=== PATIENT | female | born 1955 | race Caucasian/White ===

== ENCOUNTER 2020-07-26 13:50 | Inpatient (IN) | payer MEDICARE, OTHER ==
[2020-07-26] MEDS ORDERED: MORPHINE SULFATE 4 MG/ML SYRINGE IVP STA (14:11)
[2020-07-26] MEDS ORDERED: ONDANSETRON 4 MG/2 ML VIAL IVP STA (14:12)
[2020-07-26] MEDS ORDERED: NALOXONE 0.4 MG/ML 1 ML VIAL IV PRN (14:16)
--- NOTE | 2020-07-26 14:16 | ED ---
Abdominal Pain HPI - General Chief Complaint: Abdominal Pain Stated Complaint: abd pain, lightheaded Time Seen by Provider: 07/26/20 13:50 Source: patient, RN notes reviewed Mode of arrival: EMS Limitations: physical limitation - History of Present Illness Initial Comments: This is a 64-year-old female with a history of a colostomy that she had in 2018 was scheduled for tomorrow she was to have a colonoscopy today did used to prep starting yesterday. He started developing some abdominal pain with nausea vomiting lightheadedness. She was seen at [facility] and evaluated. Patient case was discussed with Dr. Sanchez patient was transferred here for further evaluation and care. Patient states she's feeling better except for some pain she can take morphine as he is ALLERGIC to a lot of. She denies any fevers chills or sweats at this time. MD Complaint: abdominal pain - Related Data Home Medications Medication Instructions Recorded Confirmed Atorvastatin [Lipitor] 40 mg PO HS 07/21/20 07/21/20 FLUoxetine HCL [PROzac] 20 mg PO BID 07/21/20 07/21/20 Magnesium 500 mg PO HS 07/21/20 07/21/20 Omeprazole 20 mg PO DAILY 07/21/20 07/21/20 SUMAtriptan SUCCINATE [Imitrex] 25 mg PO DAILY PRN 07/21/20 07/21/20 Spironolactone [Aldactone] 25 mg PO QAM 07/21/20 07/21/20 Tolterodine [Detrol] 2 mg PO BID 07/21/20 07/21/20 atenoloL [Atenolol] 25 mg PO QAM 07/21/20 07/21/20 hydrOXYzine HCL [Atarax] 10 mg PO BID PRN 07/21/20 07/21/20 metFORMIN HCL [Glucophage] 500 mg PO DAILY 07/21/20 07/21/20 rOPINIRole HCL [Requip] 0.5 mg PO HS 07/21/20 07/21/20 Allergies Allergy/AdvReac Type Severity Reaction Status Date / Time amoxicillin Allergy Rash/Hives Verified 07/26/20 14:08 hydromorphone [From Dilaudid] Allergy Rash/Hives Verified 07/26/20 14:08 Iodinated Contrast Media Allergy Rash/Hives Verified 07/26/20 14:08 Review of Systems ROS Statement: Those systems with pertinent positive or pertinent negative responses have been documented in the HPI. ROS Other: All systems not noted in ROS Statement are negative. Past Medical History Past Medical History: Coronary Artery Disease (CAD), GERD/Reflux, H yperlipidemia, Hypertension, Osteoarthritis (OA), Rheumatoid Arthritis (RA) Additional Past Medical History / Comment(s): colostomy, hx of fistula with abscess, sx at [facility], hx of colon polyps, hx of kidney stones, incisional hernia, restless leg, states on metformin for weight loss, not diabetes, hx of urinary incontinence, hx migraines History of Any Multi-Drug Resistant Organisms: None Reported Past Surgical History: Heart Catheterization With Stent Additional Past Surgical History / Comment(s): colostomy 08/2018 @ [facility], 2 cardiac stents, lithotripsy Past Anesthesia/Blood Transfusion Reactions: Previous Problems w/ Anesthesia Additional Past Anesthesia/Blood Transfusion Reaction / Comment(s): trouble waking up in past Date of Last Stent Placement:: 2008? Past Psychological History: Anxiety, Depression Smoking Status: Never smoker Past Alcohol Use History: None Reported Past Drug Use History: None Reported - Past Family History Mother Family Medical History: No Reported History General Exam - General Exam Comments Initial Comments: This is a well-developed well-nourished awake alert oriented 3 female Limitations: physical limitation General appearance: alert, in no apparent distress Head exam: Present: atraumatic, normocephalic, normal inspection Eye exam: Present: normal appearance, PERRL, EOMI. Absent: scleral icterus, conjunctival injection, periorbital swelling ENT exam: Present: normal exam, mucous membranes moist Neck exam: Present: normal inspection. Absent: tenderness, meningismus, lymphadenopathy Respiratory exam: Present: normal lung sounds bilaterally. Absent: respiratory distress, wheezes, rales, rhonchi, stridor Cardiovascular Exam: Present: regular rate, normal rhythm, normal heart sounds. Absent: systolic murmur, diastolic murmur, rubs, gallop, clicks GI/Abdominal exam: Present: soft, normal bowel sounds, other (Left lower quadrant colostomy noted with evidence of a parastomal hernia no guarding rebound to sign.). Absent: distended, tenderness, guarding, rebound, rigid Extremities exam: Present: normal inspection, full ROM, normal capillary refill. Absent: tenderness, pedal edema, joint swelling, calf tenderness Back exam: Present: normal inspection Neurological exam: Present: alert, oriented X3, CN II-XII intact Psychiatric exam: Present: normal affect, normal mood Skin exam: Present: warm, dry, intact, normal color. Absent: rash Course Vital Signs 07/26/20 14:03 Temperature 98.3 F Pulse Rate 72 Respiratory 18 Rate Blood Pressure 127/73 O2 Sat by Pulse 97 Oximetry Medical Decision Making - Medical Decision Making I did discuss the transfer with Dr. Carrera at [facility] as well as Dr. Jesika schmid and in the patient. Patient be admitted colonoscopy done later this afternoon. I did review the materials from the other hospital. Disposition Clinical Impression: Abdominal pain, Parastomal hernia Disposition: ADMITTED IP TO THIS HOSP Condition: Stable Referrals: Rudolph Quinteros MD [Primary Care Provider] - 1-2 days
[2020-07-26] MEDS: SODIUM CHLORIDE 0.9% 1,000 ML IV SCH ×2 (14:23→22:17)
[2020-07-26] MEDS ORDERED: PROPOFOL 10 MG/ML 20 ML VIAL IV ONE (15:20)
[2020-07-26] MEDS ORDERED: IV FLUID CONTINUATION 1,000 ML IV ONE (15:24)
--- NOTE | 2020-07-26 15:41 | P.OP ---
Date of Procedure: 07/26/20 Preoperative Diagnosis: History of diverticulitis and Peristomal hernia Postoperative Diagnosis: Same Procedure(s) Performed: Colonoscopy Anesthesia: MAC Surgeon: Butch Sanchez Pathology: none sent Condition: stable Disposition: PACU Description of Procedure: The patient's placed on the endoscopy table lateral position. She received IV sedation. Digital rectal exam was performed which revealed no abnormalities. There was a stool ball within the rectum. This removed with digital manipulation. The colostomy was then placed patient rectum. The scope was placed proximally 15 cm. The staple line was visualized. Scope withdrawn. Next the colonoscopy was placed in patient's colostomy. Patient very large parastomal hernia. There is incarcerated bowel stoma. The colonoscope could not be advanced through the colon due to incarceration of bowel. This point scope was withdrawn. Patient top she will was sent to recovery room stable condition.
--- NOTE | 2020-07-26 15:43 | P.GSHP ---
History of Present Illness H&P Date: 07/26/20 Chief Complaint: History of perforated diverticulitis, parastomal hernia This 64-year-old female who was admitted through the emergency room. Patient was rigid scheduled for outpatient endoscopy today. She developed a hypotensive episode at home. She initially taken Norm the colon which is fluid hydrated and then transferred here. Patient scheduled for reversal of colostomy in the a.m. She's. History of perforated diverticulitis. She developed a very large parastomal hernia. There is bowel incarceration hernia. Past Medical History Past Medical History: Coronary Artery Disease (CAD), GERD/Reflux, Hyperlipidemia, Hypertension, Osteoarthritis (OA), Rheumatoid Arthritis (RA) Additional Past Medical History / Comment(s): colostomy, hx of fistula with abscess, sx at [facility], hx of colon polyps, hx of kidney stones, incisional hernia, restless leg, states on metformin for weight loss, not diabetes, hx of urinary incontinence, hx migraines History of Any Multi-Drug Resistant Organisms: None Reported Past Surgical History: Heart Catheterization With Stent Additional Past Surgical History / Comment(s): colostomy 08/2018 @ [facility], 2 cardiac stents, lithotripsy Past Anesthesia/Blood Transfusion Reactions: Previous Problems w/ Anesthesia Additional Past Anesthesia/Blood Transfusion Reaction / Comment(s): trouble waking up in past Date of Last Stent Placement:: 2008? Past Psychological History: Anxiety, Depression Smoking Status: Never smoker Past Alcohol Use History: None Reported Past Drug Use History: None Reported - Past Family History Mother Family Medical History: No Reported History Medications and Allergies Home Medications Medication Instructions Recorded Confirmed Type Atorvastatin [Lipitor] 40 mg PO HS 07/21/20 07/26/20 History FLUoxetine HCL [PROzac] 20 mg PO BID 07/21/20 07/26/20 History Magnesium 500 mg PO HS 07/21/20 07/26/20 History Omeprazole 20 mg PO DAILY 07/21/20 07/26/20 History SUMAtriptan SUCCINATE [Imitrex] 25 mg PO DAILY PRN 07/21/20 07/26/20 History Spironolactone [Aldactone] 25 mg PO DAILY 07/21/20 07/26/20 History Tolterodine [Detrol] 2 mg PO BID 07/21/20 07/26/20 History atenoloL [Atenolol] 25 mg PO DAILY 07/21/20 07/26/20 History hydrOXYzine HCL [Atarax] 10 mg PO BID PRN 07/21/20 07/26/20 History metFORMIN HCL [Glucophage] 500 mg PO DAILY 07/21/20 07/26/20 History rOPINIRole HCL [Requip] 0.5 mg PO HS 07/21/20 07/26/20 History Acetaminophen Tab [Tylenol Tab] 1,000 mg PO Q6HR PRN 07/26/20 07/26/20 History Aspirin EC [Ecotrin Low Dose] 81 mg PO DAILY 07/26/20 07/26/20 History Melatonin 5 mg PO HS PRN 07/26/20 07/26/20 History Primidone [Mysoline] 50 mg PO BID 07/26/20 07/26/20 History Allergies Allergy/AdvReac Type Severity Reaction Status Date / Time amoxicillin Allergy Rash/Hives Verified 07/26/20 14:47 hydromorphone [From Dilaudid] Allergy Rash/Hives Verified 07/26/20 14:47 Iodinated Contrast Media Allergy Rash/Hives Verified 07/26/20 14:47 Surgical - Exam Vital Signs Temp Pulse Resp BP Pulse Ox 98.3 F 72 18 127/73 97 07/26/20 14:03 07/26/20 14:03 07/26/20 14:03 07/26/20 14:03 07/26/20 14:03 - General well developed, no distress - Eyes PERRL - ENT normal pinna - Neck no masses - Respiratory normal expansion - Cardiovascular Rhythm: regular - Abdomen Large parastomal hernia Abdomen: soft, non tender Assessment and Plan Assessment: History of perforated diverticulitis, large parastomal hernia, patient will undergo colonoscopy and then reversal of colostomy in a.m.
[2020-07-26] MEDS ORDERED: MELATONIN 5 MG TABLET PO PRN (19:47)
[2020-07-26] MEDS ORDERED: hydrOXYzine HCL 10 MG TAB PO PRN (19:47)
[2020-07-26 21:31] LABS: Glucose,Whole Blood 134 mg/dL (75-99)
[2020-07-26] MEDS: ATORVASTATIN 40 MG TAB PO SCH (21:36)
[2020-07-26] MEDS: INSULIN ASPART (NovoLOG) 100 UNIT/ML VIAL SQ SCH (21:36)
[2020-07-26] MEDS: FLUoxetine HCL 20 MG CAP PO SCH (21:36)
[2020-07-26] MEDS: MAGNESIUM OXIDE 400 MG TAB PO SCH (21:37)
[2020-07-26] MEDS: OXYBUTYNIN XL 5 MG TAB.ER.24 PO SCH (21:37)
[2020-07-26] MEDS: PRIMIDONE 50 MG TAB PO SCH (21:37)
[2020-07-26] MEDS: SUMAtriptan succinate 25 MG TAB PO PRN (21:43)
[2020-07-27] MEDS ORDERED: metroNIDAZOLE-NS PMX 500 MG in SALINE 1 100ML.BAG IVPB PRN (05:00)
[2020-07-27] MEDS ORDERED: HEPARIN SODIUM,PORCINE/PF 5,000 UNIT/0.5 ML SYRINGE SQ PRN (05:00)
[2020-07-27] MEDS ORDERED: ACETAMINOPHEN TAB 500 MG TAB PO PRN (05:00)
[2020-07-27] MEDS: SODIUM CHLORIDE 0.9% 1,000 ML IV SCH ×3 (05:47→22:45)
[2020-07-27] MEDS ORDERED: fentaNYL (PF) 50 MCG/ML 2 ML AMP IV PRN (07:53)
[2020-07-27 07:55] LABS: Glucose,Whole Blood 93 mg/dL (75-99)
[2020-07-27] MEDS: INSULIN ASPART (NovoLOG) 100 UNIT/ML VIAL SQ SCH ×4 (07:58→21:12)
[2020-07-27 08:00] LABS: Anisocytosis Slight; Basophils % (A) 0 %; Eosinophils # (A) 0.1 k/uL (0-0.7); Eosinophils % (A) 2 %; HCT 31.8 % (34.0-46.0); HGB 9.4 gm/dL (11.4-16.0); Hypochromasia Marked; Lymphocytes # (A) 1.3 k/uL (1.0-4.8); Lymphocytes % (A) 16 %; MCH 20.8 pg (25.0-35.0); MCHC 29.5 g/dL (31.0-37.0); MCV 70.4 fL (80.0-100.0); Mean Platelet Volume 6.9; Microcytosis Marked; Monocytes # (A) 0.5 k/uL (0-1.0); Monocytes % (A) 6 %; Neutrophils # (A) 6.2 k/uL (1.3-7.7); Neutrophils % (A) 75 %; Platelet Count 368 k/uL (150-450); RBC 4.53 m/uL (3.80-5.40); RDW 16.5 % (11.5-15.5); WBC 8.3 k/uL (3.8-10.6)
[2020-07-27 08:02] LABS: ALT 17 U/L (4-34); AST 28 U/L (14-36); African American GFR (CKD) 81 (>60 ml/min/1.73 sqM); Albumin 3.5 g/dL (3.5-5.0); Albumin/Globulin Ratio 1.8; Alkaline Phosphatase 81 U/L (38-126); Anion Gap 6 mmol/L; Blood Urea Nitrogen 13 mg/dL (7-17); Calcium 8.5 mg/dL (8.4-10.2); Carbon Dioxide 24 mmol/L (22-30); Chloride 106 mmol/L (98-107); Glucose 89 mg/dL (74-99); Non-African American GFR(CKD) 70 (>60 ml/min/1.73 sqM); Potassium 4.1 mmol/L (3.5-5.1); Sodium 136 mmol/L (137-145); Total Bilirubin 0.3 mg/dL (0.2-1.3); Total Protein 5.5 g/dL (6.3-8.2)
[2020-07-27 08:03] LABS: Partial Thromboplastin Time 22.2 sec (22.0-30.0); Prothrombin Time 10.5 sec (9.0-12.0)
[2020-07-27] MEDS: FLUoxetine HCL 20 MG CAP PO SCH ×2 (08:18→20:43)
[2020-07-27] MEDS: PANTOPRAZOLE 40 MG TABLET PO SCH (08:18)
[2020-07-27] MEDS: atenoloL 25 MG TAB PO SCH (08:18)
[2020-07-27] MEDS ORDERED: IV FLUID CONTINUATION 1,000 ML IV ONE (08:54)
[2020-07-27] MEDS: LACTATED RINGERS 1,000 ML IV SCH (09:14)
[2020-07-27 09:35] LABS: Glucose,Whole Blood 89 mg/dL (75-99)
[2020-07-27] MEDS ORDERED: ONDANSETRON 4 MG/2 ML VIAL IVP ONE (09:36)
[2020-07-27] MEDS ORDERED: DEXAMETHASONE SOD PHOSPHATE 4 MG/ML 1 ML VIAL IVP ONE (09:36)
[2020-07-27] MEDS ORDERED: MIDAZOLAM 2 MG/2 ML VIAL IV ONE (12:20)
[2020-07-27] MEDS ORDERED: ROCURONIUM 10 MG/ML (5 ML VIAL) IV ONE (13:00)
[2020-07-27] MEDS ORDERED: SUCCINYLCHOLINE CHLORIDE 100 MG/5 ML SYR IV ONE (13:00)
[2020-07-27] MEDS ORDERED: LIDOCAINE 1% INJ 10MG/ML (20 ML MDV) ONE (13:00)
[2020-07-27] MEDS ORDERED: PROPOFOL 10 MG/ML 20 ML VIAL IV ONE (13:00)
[2020-07-27] MEDS ORDERED: NEOSTIGMINE 1 MG/ML 10 ML VIAL ONE (13:00)
[2020-07-27] MEDS ORDERED: fentaNYL (PF) 50 MCG/ML 2 ML AMP ONE (13:00)
[2020-07-27] MEDS ORDERED: GLYCOPYRROLATE 0.2 MG/ML 2 ML VIAL ONE (13:00)
[2020-07-27] MEDS ORDERED: ROPIVACAINE 250 MG, fentaNYL (PF) 625 MCG in SODIUM CHLORIDE 0.9% 188 ML EPIDURAL PRN (13:18)
[2020-07-27] MEDS ORDERED: NALOXONE 0.4 MG/ML 1 ML VIAL IV PRN (13:18)
--- NOTE | 2020-07-27 13:21 | P.ANPRN ---
Procedure Note - Anesthesia - Epidural/Spinal Epidural Continuous Time Out Performed: Yes Date of Procedure: 07/27/20 Procedure Start Time: 12:18 Procedure Stop Time: 12:25 Location of Patient: PreOp Indication: Acute Post-Operative Pain, Requested by Surgeon Sedation Type: Sedate with meaningful contact maintained Preparation: Sterile Dressing Position: Sitting Catheter: Indwelling Needle Guage: 18 Injectate: Test Dose Lidocaine1.5% w/1:200,000 epi (test dose 3cc given,no change) Blood Aspirated: No Pain Paresthesia on Injection Noted: No Events: Uneventful and Well Tolerated
[2020-07-27] MEDS ORDERED: LACTATED RINGERS 1,000 ML IV ONE (14:15)
[2020-07-27] MEDS ORDERED: HYDROmorphone 1 MG/ML 1 ML SYRINGE IVP PRN (14:54)
[2020-07-27] MEDS ORDERED: BENZOCAINE/MENTHOL LOZENG 1 EACH LOZENGE MUCOUS MEM PRN (14:54)
--- NOTE | 2020-07-27 14:54 | P.OP ---
Date of Procedure: 07/27/20 Preoperative Diagnosis: History of perforated diverticulitis Incisional hernia Postoperative Diagnosis: Same Procedure(s) Performed: Exploratory laparotomy Reversal colostomy Repair of incisional hernia Partial omentectomy Anesthesia: ALISA Surgeon: Butch Sanchez Estimated Blood Loss (ml): 50 Pathology: other (Left colon) Condition: stable Disposition: PACU Description of Procedure: The patient's placed in the operative table in supine position. She was then received general anesthesia. She then was positioned in dorsal lithotomy position. Her abdomen was prepped and draped usual sterile fashion. An Ioban was used to barrier at the colostomy. The skin was incised midline. Patient large incisional hernia. The hernia sac was opened. The hernia sac was then transected. The patient's colostomy traveled through the hernia sac. The colon was then transected at the fascial level. The patient had a very redundant colon. The colon was then dissected by dividing the mesentery the bowel to the level of the mid transverse colon. The omentum was dissected free using the Enseal device. The omentum was sent to pathology. Next a opening was made and: The 25 mm EEA staple anvil was placed in the colon. The colon was then transected with a GI stapler and sent to pathology. The was then driven through the staple line. At this point the senior office support assistant sosa placed the EEA stapler patient's anus and the stapler position the rectum. The spike was then driven through the anterior rectal wall. The endoscopic to the stapler. The stapler was then closed and fired. 2 intact tissue rings were withdrawn. Using a hydro-managing consultant clinical professor the bowel was occluded and then air insufflation test was done using a rigid sigmoidoscope. There is known to leakage. The abdomen was irrigated there is no bleeding seen. The fascia was closed in looped PDS #1 suture. The redundant skin included the colostomy. This was excised and sent to pathology. A JASMINE drains placed on top the fascia. Brought out through the right upper quadrant. The skin was then closed johnson. Patient top procedure well and sent to recovery room stable.
[2020-07-27 15:34] LABS: Glucose,Whole Blood 158 mg/dL (75-99)
[2020-07-27] MEDS ORDERED: fentaNYL (PF) 50 MCG/ML 2 ML AMP IVP ONE (15:54)
[2020-07-27 16:40] LABS: Anisocytosis Slight; Basophils % (A) 0 %; Eosinophils # (A) 0.1 k/uL (0-0.7); Eosinophils % (A) 0 %; HCT 33.7 % (34.0-46.0); HGB 9.6 gm/dL (11.4-16.0); Hypochromasia Marked; Lymphocytes # (A) 0.6 k/uL (1.0-4.8); Lymphocytes % (A) 4 %; MCH 20.2 pg (25.0-35.0); MCHC 28.5 g/dL (31.0-37.0); MCV 70.7 fL (80.0-100.0); Mean Platelet Volume 7.9; Microcytosis Moderate; Monocytes # (A) 0.4 k/uL (0-1.0); Monocytes % (A) 2 %; Neutrophils # (A) 16.1 k/uL (1.3-7.7); Neutrophils % (A) 93 %; Platelet Count 392 k/uL (150-450); RBC 4.76 m/uL (3.80-5.40); RDW 16.6 % (11.5-15.5); WBC 17.4 k/uL (3.8-10.6)
[2020-07-27 16:44] LABS: African American GFR (CKD) >90 (>60 ml/min/1.73 sqM); Anion Gap 7 mmol/L; Blood Urea Nitrogen 12 mg/dL (7-17); Calcium 8.6 mg/dL (8.4-10.2); Carbon Dioxide 23 mmol/L (22-30); Chloride 105 mmol/L (98-107); Glucose 149 mg/dL (74-99); Non-African American GFR(CKD) 80 (>60 ml/min/1.73 sqM); Potassium 4.9 mmol/L (3.5-5.1); Sodium 135 mmol/L (137-145)
[2020-07-27] MEDS: PRIMIDONE 50 MG TAB PO SCH ×2 (17:19→20:43)
[2020-07-27] MEDS: ASPIRIN 81 MG PO SCH (17:19)
[2020-07-27 17:24] LABS: Glucose,Whole Blood 124 mg/dL (75-99)
[2020-07-27] MEDS: ACETAMINOPHEN TAB 500 MG TAB PO PRN (17:59)
[2020-07-27] MEDS: D5-0.45% NACL WITH KCL 20MEQ/L 1,000 ML IV SCH (19:56)
[2020-07-27] MEDS: ATORVASTATIN 40 MG TAB PO SCH (20:43)
[2020-07-27] MEDS: MAGNESIUM OXIDE 400 MG TAB PO SCH (20:43)
[2020-07-27] MEDS: SUMAtriptan succinate 25 MG TAB PO PRN (20:43)
[2020-07-27] MEDS: OXYBUTYNIN XL 5 MG TAB.ER.24 PO SCH (20:44)
[2020-07-27 21:03] LABS: Glucose,Whole Blood 144 mg/dL (75-99)
[2020-07-28] MEDS: SODIUM CHLORIDE 0.9% 1,000 ML IV SCH (03:21)
[2020-07-28] MEDS: D5-0.45% NACL WITH KCL 20MEQ/L 1,000 ML IV SCH ×4 (03:21→22:49)
--- NOTE | 2020-07-28 05:33 | CONS ---
CONSULTATION REASON FOR CONSULTATION: Advice regarding CAD, multiple medical issues, requested by Dr. Sanchez. HISTORY OF PRESENT ILLNESS: This 64-year-old woman with a past medical history of coronary artery disease, GERD, hypertension, hyperlipidemia, history of rheumatoid arthritis, who underwent exploratory laparotomy, reversal of colostomy and repair of incisional hernia, partial omentectomy by Dr. Sanchez. The patient tolerated the procedure well. Patient complaining of some pain postoperatively, which was as expected. There is no history of fever. No history of headache, loss of consciousness, seizures. PAST MEDICAL HISTORY: History of CAD, GERD, hypertension, hyperlipidemia. MEDICATIONS: Home medications are reviewed and include Requip, Glucophage, Atarax, Atenolol, Detrol, aldactone, Imitrex, Mysoline, omeprazole, melatonin, magnesium, Prozac, Lipitor, Ecotrin, Tylenol. ALLERGIES: AMOXICILLIN, DILAUDID, IODINATED CONTRAST DYES. FAMILY HISTORY: No history of heart disease or strokes in the family. SOCIAL HISTORY: No smoking. No alcohol. REVIEW OF SYMPTOMS: ENT: No diminished vision or hearing. CARDIOVASCULAR: No angina or palpitations. RESPIRATORY: No cough. GI: As mentioned earlier. : No dysuria. NERVOUS SYSTEM: No numbness or weakness. ALLERGY/IMMUNOLOGY: No asthma or hayfever. MUSCULOSKELETAL: As mentioned earlier. HEMATOLOGY: No history of anemia. ENDOCRINE: No history of diabetes or hypothyroidism. CONSTITUTIONAL: As mentioned earlier. DERMATOLOGY: Negative. RHEUMATOLOGY: Negative. PSYCHIATRY: As mentioned earlier. PHYSICAL EXAMINATION: GENERAL: Patient is alert and oriented times three. VITAL SIGNS: Pulse 67, blood pressure 130/70, respirations 18, temperature normal, pulse ox 100% on 3 liters. HEENT: Conjunctivae normal. NECK: No jugular venous distention. No carotid bruits. No lymph node enlargement. RESPIRATORY: Breath sounds diminished at the bases. A few scattered rhonchi and crackles. HEART: S1 and S2, muffled. ABDOMEN: Soft, status post surgery. EXTREMITIES: No edema. NERVOUS: No focal deficits. SKIN: No rash. JOINTS: No active deforming arthropathy. LAB STUDIES: WBC 17.2, hemoglobin 9.6, sodium is 135. ASSESSMENT: 1. Status post exploratory laparotomy, reversal of colostomy, repair of incisional hernia and partial omentectomy. 2. Increased WBC. 3. Microcytic anemia. 4. Hyponatremia. 5. History of coronary artery disease. 6. Gastroesophageal reflux disease .. 7. Hypertension. 8. Hyperlipidemia. 9. History of degenerative joint disease. 10.History of rheumatoid arthritis. 11.History of colostomy. 12.History of fistula with abscess. 13.History of colonic polyps. 14.History of coronary artery disease with stent. 15.History of anxiety, depression. 16.FULL CODE. RECOMMENDATION AND DISCUSSION: In this 64-year-old woman who presented with multiple complex medical issues, we will monitor the patient closely. Continue the current management and continue symptomatic treatment. Otherwise at this time resume the home medications. DVT prophylaxis. Proton pump inhibitors. We will follow the patient closely with you. The patient will be asked to follow with primary physician, Dr. Quinteros after discharge. Thank you Dr. Sanchez for letting us participate in the care of this patient. MMODL / IJN: [id number] /
[2020-07-28 06:36] LABS: ALT 18 U/L (4-34); AST 32 U/L (14-36); African American GFR (CKD) 79 (>60 ml/min/1.73 sqM); Albumin/Globulin Ratio 1.5; Alkaline Phosphatase 64 U/L (38-126); Anion Gap 4 mmol/L; Blood Urea Nitrogen 10 mg/dL (7-17); Calcium 8.4 mg/dL (8.4-10.2); Carbon Dioxide 26 mmol/L (22-30); Chloride 103 mmol/L (98-107); Glucose 145 mg/dL (74-99); Non-African American GFR(CKD) 68 (>60 ml/min/1.73 sqM); Potassium 4.8 mmol/L (3.5-5.1); Sodium 133 mmol/L (137-145); Total Bilirubin 0.5 mg/dL (0.2-1.3)
[2020-07-28 07:11] LABS: Glucose,Whole Blood 149 mg/dL (75-99)
[2020-07-28] MEDS: INSULIN ASPART (NovoLOG) 100 UNIT/ML VIAL SQ SCH ×4 (07:31→21:20)
[2020-07-28] MEDS: PANTOPRAZOLE 40 MG TABLET PO SCH (07:31)
[2020-07-28] MEDS: LACTATED RINGERS 1,000 ML IV SCH (07:31)
--- NOTE | 2020-07-28 07:36 | P.PN ---
Progress Note - Text Date: 07/28/2020 Time: 07:12 The patient is status post, colostomy reversal, postoperative day number 1 The patient has no complaints of nausea vomiting or headache. The patient does not complain of any lower extremity numbness or weakness. The epidural is running at 7 mL per hour. VAS 3-10. The epidural will be maintained and adjuste d as needed.
[2020-07-28] MEDS: ACETAMINOPHEN TAB 500 MG TAB PO PRN ×2 (07:38→16:27)
[2020-07-28 09:30] LABS: HCT 30.1 % (37.2-46.3); HGB 8.2 g/dL (12.0-15.0); MCH 19.9 pg (27.0-32.0); MCHC 27.2 g/dL (32.0-37.0); MCV 72.9 fL (80.0-97.0); Mean Platelet Volume 10.7 fL (9.5-12.2); Platelet Count 385 X 10*3/uL (140-440); RBC 4.13 X 10*6/uL (4.10-5.20); RDW 17.7 % (11.5-14.5); WBC 16.07 X 10*3/uL (4.50-10.00)
[2020-07-28] MEDS: SUMAtriptan succinate 25 MG TAB PO PRN (09:52)
[2020-07-28] MEDS: ONDANSETRON 4 MG/2 ML VIAL IVP PRN ×2 (09:53→18:16)
[2020-07-28] MEDS: metFORMIN 500 MG TAB PO SCH (09:54)
[2020-07-28] MEDS: atenoloL 25 MG TAB PO SCH (09:54)
[2020-07-28] MEDS: SPIRONOLACTONE 25 MG TAB PO SCH (09:54)
[2020-07-28] MEDS: FLUoxetine HCL 20 MG CAP PO SCH ×2 (09:54→20:02)
[2020-07-28] MEDS: ASPIRIN 81 MG PO SCH (09:54)
[2020-07-28] MEDS: PRIMIDONE 50 MG TAB PO SCH ×2 (09:55→20:03)
[2020-07-28 10:21] LABS: Basophils # (A) 0.02 X 10*3/uL (0.00-0.10); Basophils % (A) 0.1 %; Eosinophils # (A) 0 X 10*3/uL (0.04-0.35); Eosinophils % (A) 0 %; Lymphocytes # (A) 0.81 X 10*3/uL (0.90-5.00); Microcytosis (M) 2+; Monocytes # (A) 1.14 X 10*3/uL (0.20-1.00); Monocytes % (A) 7.1 %; Neutrophils # (A) 14.01 X 10*3/uL (1.80-7.70); Neutrophils % (A) 87.2 %
[2020-07-28 11:49] LABS: Glucose,Whole Blood 143 mg/dL (75-99)
--- NOTE | 2020-07-28 13:51 | P.PN ---
Subjective Progress Note Date: 07/28/20 CHIEF COMPLAINT: History of perforated diverticulitis and parastomal hernia HISTORY OF PRESENT ILLNESS: Patient is status post exploratory laparotomy, reversal of colostomy, repair of incisional hernia and partial omentectomy for history of perforated diverticulitis and incisional hernia. Patient does report abdominal pain. It is controlled with the epidural. She denies any nausea or vomiting. She has been having had a headache. She's received Tylenol and her Imitrex for her history of migraines. She denies any flatus or bowel movement. Afebrile. WBC is 16.07 hemoglobin 8.2 platelets 385 PHYSICAL EXAM: VITAL SIGNS: Reviewed. GENERAL: Well-developed in no acute distress. HEENT: No sclera icterus. Extraocular movements grossly intact. Moist buccal mucosa. Head is atraumatic, normocephalic. ABDOMEN: Soft. Nondistended. Has prevnar wound vac JASMINE drain with sanguinous fluid NEUROLOGIC: Alert and oriented. Cranial nerves II through XII grossly intact. ASSESSMENT: 1. Perforated diverticulitis and incisional hernia status post exploratory laparotomy, reversal of colostomy, repair of incisional hernia and partial omentectomy PLAN: -Continue epidural for pain control -Continue clear liquid diet -Encouraged patient to increase activity -Encouraged patient to use incentive spirometer -GI prophylaxis Protonix and DVT prophylaxis subcu heparin Physician Field Test Engineer note has been reviewed by physician. Signing provider agrees with the documented findings, assessment, and plan of care. Objective - Vital Signs Vital signs: Vital Signs Temp 97.9 F 07/28/20 12:57 Pulse 72 07/28/20 12:57 Resp 16 07/28/20 12:57 BP 106/67 07/28/20 12:57 Pulse Ox 98 07/28/20 12:57 Intake & Output 07/27/20 07/28/20 07/28/20 18:59 06:59 18:59 Intake Total 2100 500 Output Total 340 650 Balance 1760 -650 500 Intake: IV 2100 Oral 500 Output: Urine 290 650 Estimated Blood Loss 50 Other: Voiding Method Indwelling Catheter Indwelling Catheter Indwelling Catheter - Labs CBC & Chem 7: 07/28/20 05:34 07/28/20 05:34 Labs: Abnormal Lab Results - Last 24 Hours (Table) 07/27/20 07/27/20 07/27/20 Range/Units 15:32 16:09 16:09 WBC 17.4 H (3.8-10.6) k/uL Hgb 9.6 L (11.4-16.0) gm/dL Hct 33.7 L (34.0-46.0) % MCV 70.7 L (80.0-100.0) fL MCH 20.2 L (25.0-35.0) pg MCHC 28.5 L (31.0-37.0) g/dL RDW 16.6 H (11.5-15.5) % Immature Gran # (0.00-0.04) X 10*3/uL Neutrophils # 16.1 H (1.3-7.7) k/uL Lymphocytes # 0.6 L (1.0-4.8) k/uL Monocytes # (0.20-1.00) X 10*3/uL Eosinophils # (0.04-0.35) X 10*3/uL Sodium 135 L (137-145) mmol/L Glucose 149 H (74-99) mg/dL POC Glucose (mg/dL) 158 H (75-99) mg/dL Total Protein (6.3-8.2) g/dL Albumin (3.5-5.0) g/dL 07/27/20 07/27/20 07/28/20 Range/Units 17:23 21:02 05:34 WBC (3.8-10.6) k/uL Hgb (11.4-16.0) gm/dL Hct (34.0-46.0) % MCV (80.0-100.0) fL MCH (25.0-35.0) pg MCHC (31.0-37.0) g/dL RDW (11.5-15.5) % Immature Gran # (0.00-0.04) X 10*3/uL Neutrophils # (1.3-7.7) k/uL Lymphocytes # (1.0-4.8) k/uL Monocytes # (0.20-1.00) X 10*3/uL Eosinophils # (0.04-0.35) X 10*3/uL Sodium 133 L (137-145) mmol/L Glucose 145 H (74-99) mg/dL POC Glucose (mg/dL) 124 H 144 H (75-99) mg/dL Total Protein 5.0 L (6.3-8.2) g/dL Albumin 3.0 L (3.5-5.0) g/dL 07/28/20 07/28/20 07/28/20 Range/Units 05:34 07:10 11:48 WBC 16.07 H (3.8-10.6) k/uL Hgb 8.2 L (11.4-16.0) gm/dL Hct 30.1 L (34.0-46.0) % MCV 72.9 L (80.0-100.0) fL MCH 19.9 L (25.0-35.0) pg MCHC 27.2 L (31.0-37.0) g/dL RDW 17.7 H (11.5-15.5) % Immature Gran # 0.09 H (0.00-0.04) X 10*3/uL Neutrophils # 14.01 H (1.3-7.7) k/uL Lymphocytes # 0.81 L (1.0-4.8) k/uL Monocytes # 1.14 H (0.20-1.00) X 10*3/uL Eosinophils # 0 L (0.04-0.35) X 10*3/uL Sodium (137-145) mmol/L Glucose (74-99) mg/dL POC Glucose (mg/dL) 149 H 143 H (75-99) mg/dL Total Protein (6.3-8.2) g/dL Albumin (3.5-5.0) g/dL
[2020-07-28 17:24] LABS: Glucose,Whole Blood 140 mg/dL (75-99)
--- NOTE | 2020-07-28 17:26 | PN ---
PROGRESS NOTE DATE OF SERVICE: 07/28/2020. This 64-year-old woman who was admitted with exploratory laparotomy, reversal of colostomy, repair of incisional hernia and partial omentectomy, being closely monitored. No chest pain. No palpitations. No fever. PHYSICAL EXAMINATION: Alert and oriented x3. Pulse 76, blood pressure 100/62, respiration 18, temperature 98.1, pulse ox 98% on 2 L. HEENT: Conjunctivae normal. Oral mucosa moist. NECK: No jugular venous distention. No lymph node enlargement. CARDIOVASCULAR: S1, S2, muffled. No S3, no S4, RESPIRATORY: Diminished breath sounds at the bases. A few scattered rhonchi and crackles. ABDOMEN: Soft, nontender. NERVOUS SYSTEM: No focal deficits. LABS: At this time, WBC 16.2, hemoglobin is 8.2, sodium is 133. Other labs are noted. ASSESSMENT: 1. Status post exploratory laparotomy with reversal of colostomy, repair of incisional hernia and partial omentectomy. 2. Increased WBC. 3. Microcytic anemia. 4. Continued abdominal pain. 5. Hyponatremia. 6. History of coronary artery disease. 7. Gastroesophageal reflux disease. 8. Hypertension. 9. Hyperlipidemia. 10.History of DJD. 11.History rheumatoid arthritis. 12.History of colostomy. 13.History of fistula with abscess. 14.Colonic polyps. 15.History of CAD, stent. 16.History of anxiety, depression. 17.FULL CODE. RECOMMENDATIONS: Recommend to continue current management and symptomatic treatment. Otherwise, at this time repeat labs will be ordered and closely follow with surgery. DVT prophylaxis. Further recommendations to follow. MMODL / IJN: [id number] /
[2020-07-28] MEDS: MAGNESIUM OXIDE 400 MG TAB PO SCH (20:02)
[2020-07-28] MEDS: ATORVASTATIN 40 MG TAB PO SCH (20:02)
[2020-07-28] MEDS: HEPARIN SODIUM,PORCINE/PF 5,000 UNIT/0.5 ML SYRINGE SQ SCH (20:03)
[2020-07-28] MEDS: OXYBUTYNIN XL 5 MG TAB.ER.24 PO SCH (20:03)
[2020-07-28 20:05] LABS: Glucose,Whole Blood 158 mg/dL (75-99)
[2020-07-29 07:29] LABS: Glucose,Whole Blood 162 mg/dL (75-99)
[2020-07-29] MEDS: LACTATED RINGERS 1,000 ML IV SCH (08:46)
[2020-07-29] MEDS: MORPHINE SULFATE 2 MG/ML SYRINGE IVP PRN ×2 (08:56→09:56)
[2020-07-29] MEDS: FLUoxetine HCL 20 MG CAP PO SCH ×2 (08:59→19:59)
[2020-07-29] MEDS: INSULIN ASPART (NovoLOG) 100 UNIT/ML VIAL SQ SCH ×4 (08:59→19:55)
[2020-07-29] MEDS: ASPIRIN 81 MG PO SCH (08:59)
[2020-07-29] MEDS: atenoloL 25 MG TAB PO SCH (08:59)
[2020-07-29] MEDS: PANTOPRAZOLE 40 MG/10 ML VIAL IVP SCH (08:59)
[2020-07-29] MEDS: PRIMIDONE 50 MG TAB PO SCH ×2 (09:00→20:23)
[2020-07-29] MEDS: D5-0.45% NACL WITH KCL 20MEQ/L 1,000 ML IV SCH (09:45)
[2020-07-29] MEDS ORDERED: MORPHINE SULFATE 2 MG/ML SYRINGE IVP STA (09:48)
[2020-07-29] MEDS: HEPARIN SODIUM,PORCINE/PF 5,000 UNIT/0.5 ML SYRINGE SQ SCH ×2 (09:59→19:59)
[2020-07-29 10:35] LABS: Basophils # (A) 0.05 X 10*3/uL (0.00-0.10); Basophils % (A) 0.3 %; Eosinophils # (A) 0.33 X 10*3/uL (0.04-0.35); Eosinophils % (A) 1.8 %; HCT 28.4 % (37.2-46.3); HGB 7.7 g/dL (12.0-15.0); Lymphocytes # (A) 0.96 X 10*3/uL (0.90-5.00); Lymphocytes % (A) 5.2 %; MCH 19.8 pg (27.0-32.0); MCHC 27.1 g/dL (32.0-37.0); MCV 73.2 fL (80.0-97.0); Mean Platelet Volume 10.7 fL (9.5-12.2); Monocytes # (A) 1.23 X 10*3/uL (0.20-1.00); Monocytes % (A) 6.6 %; Neutrophils # (A) 15.98 X 10*3/uL (1.80-7.70); Neutrophils % (A) 85.6 %; Platelet Count 358 X 10*3/uL (140-440); RBC 3.88 X 10*6/uL (4.10-5.20); RDW 17.8 % (11.5-14.5); WBC 18.64 X 10*3/uL (4.50-10.00)
[2020-07-29 12:05] LABS: Glucose,Whole Blood 182 mg/dL (75-99)
[2020-07-29] MEDS: SUMAtriptan succinate 25 MG TAB PO PRN (12:12)
[2020-07-29] MEDS: ONDANSETRON 4 MG/2 ML VIAL IVP PRN (12:12)
[2020-07-29] MEDS: MORPHINE SULFATE 4 MG/ML SYRINGE IVP PRN ×4 (12:13→20:12)
--- NOTE | 2020-07-29 13:02 | P.PN ---
Subjective Progress Note Date: 07/29/20 CHIEF COMPLAINT: History of perforated diverticulitis and parastomal hernia HISTORY OF PRESENT ILLNESS: Patient is status post exploratory laparotomy, reversal of colostomy, repair of incisional hernia and partial omentectomy for history of perforated diverticulitis and incisional hernia. Patient's comp laining of abdominal pain. She reports that her pain is not controlled. The epidural had not been helping with her pain. Epididymis all was discontinued by anesthesia at this morning. Patient started on IV morphine as needed and [place] to help control pain. She denies any nausea or vomiting. She is passing gas and did have a liquidy bowel movement. She is complaining of headache. Afebrile. WBC is up from 16.07 to 18.6 hemoglobin is down from 8.2 to 7.7 PHYSICAL EXAM: VITAL SIGNS: Reviewed. GENERAL: Well-developed in no acute distress. HEENT: No sclera icterus. Extraocular movements grossly intact. Moist buccal mucosa. Head is atraumatic, normocephalic. ABDOMEN: Soft. Nondistended. Has prevena wound vac dressing in place. JASMINE drain with sanguinous fluid NEUROLOGIC: Alert and oriented. Cranial nerves II through XII grossly intact. ASSESSMENT: 1. Perforated diverticulitis and incisional hernia status post exploratory laparotomy, reversal of colostomy, repair of incisional hernia and partial omentectomy 2. Leukocytosis PLAN: -Patient is having worsening leukocytosis will add Levaquin 500 mg IV daily -Epidural discontinued earlier today. IV morphine 4 mg every 3 hours as needed and [place] PRN added for pain control -Continue clear liquid diet -Encouraged patient to increase activity -Encouraged patient to use incentive spirometer -GI prophylaxis Protonix and DVT prophylaxis subcu heparin Physician Lead Fabricator note has been reviewed by physician. Signing provider agrees with the documented findings, assessment, and plan of care. Objective - Vital Signs Vital signs: Vital Signs Temp 98.7 F 07/29/20 08:00 Pulse 84 07/29/20 12:00 Resp 20 07/29/20 12:00 BP 134/80 07/29/20 12:00 Pulse Ox 98 07/29/20 12:00 Intake & Output 07/28/20 07/29/20 07/29/20 18:59 06:59 18:59 Intake Total 500 Output Total 828 571 6140 Balance 0 -900 -1000 Intake: Oral 500 Output: Urine 031 768 8721 Other: Voiding Method Indwelling Catheter Indwelling Catheter # Voids 1 - Labs CBC & Chem 7: 07/29/20 05:36 07/29/20 05:36 Labs: Abnormal Lab Results - Last 24 Hours (Table) 07/28/20 07/28/20 07/29/20 Range/Units 17:23 20:03 05:36 WBC 18.64 H (4.50-10.00) X 10*3/uL RBC 3.88 L (4.10-5.20) X 10*6/uL Hgb 7.7 L (12.0-15.0) g/dL Hct 28.4 L (37.2-46.3) % MCV 73.2 L (80.0-97.0) fL MCH 19.8 L (27.0-32.0) pg MCHC 27.1 L (32.0-37.0) g/dL RDW 17.8 H (11.5-14.5) % Immature Gran # 0.09 H (0.00-0.04) X 10*3/uL Neutrophils # 15.98 H (1.80-7.70) X 10*3/uL Monocytes # 1.23 H (0.20-1.00) X 10*3/uL POC Glucose (mg/dL) 140 H 158 H (75-99) mg/dL 07/29/20 07/29/20 Range/Units 07:28 12:04 WBC (4.50-10.00) X 10*3/uL RBC (4.10-5.20) X 10*6/uL Hgb (12.0-15.0) g/dL Hct (37.2-46.3) % MCV (80.0-97.0) fL MCH (27.0-32.0) pg MCHC (32.0-37.0) g/dL RDW (11.5-14.5) % Immature Gran # (0.00-0.04) X 10*3/uL Neutrophils # (1.80-7.70) X 10*3/uL Monocytes # (0.20-1.00) X 10*3/uL POC Glucose (mg/dL) 162 H 182 H (75-99) mg/dL
[2020-07-29] MEDS: metFORMIN 500 MG TAB PO SCH (13:04)
[2020-07-29 13:21] LABS: African American GFR (CKD) 89.7 (60.0-200.0); Anion Gap 6.5 mmol/L (4.00-12.00); BUN/Creat Ratio 8.75 Ratio (12.00-20.00); Calcium 8.2 mg/dL (8.7-10.3); Carbon Dioxide 20.5 mmol/L (21.6-31.8); Non-African American GFR(CKD) 77.4 (60.0-200.0)
[2020-07-29] MEDS: HYDROcodone/APAP 5-325MG 1 EACH TAB PO PRN (14:08)
[2020-07-29] MEDS: SODIUM CHLORIDE 0.9% 1,000 ML IV SCH ×2 (15:29→20:24)
[2020-07-29] MEDS: LEVOFLOXACIN 500MG-D5W PMX 500 MG in DEXTROSE/WATER 1 100ML.BAG IVPB SCH (15:32)
[2020-07-29] MEDS: SPIRONOLACTONE 25 MG TAB PO SCH (17:19)
[2020-07-29 17:24] LABS: Glucose,Whole Blood 124 mg/dL (75-99)
--- NOTE | 2020-07-29 18:38 | PN ---
PROGRESS NOTE DATE OF SERVICE: 07/29/2020 This 64-year-old woman who was admitted after exploratory laparotomy. Still complaining of some abdominal pain. No chest pain. No palpitations. No fever. Biopsy reports are pending. PHYSICAL EXAMINATION: Alert and oriented times three. Pulse 84, blood pressure 135/84, respiration 20, temperature 98.7, pulse ox 98 percent on 2 L. HEENT: Conjunctivae normal. NECK: No JVD. CARDIOVASCULAR: S1, S2 muffled. RESPIRATION: Breath sounds diminished in the bases. Scattered rhonchi. ABDOMEN: Soft, status post surgery. LEGS are no edema. No swelling. NERVOUS SYSTEM: No focal deficits. LABS: WBC 18.6, hemoglobin 7.7, sodium 131. ASSESSMENT: 1. Status post exploratory laparotomy with reversal of colostomy and repair of incisional hernia and partial omentectomy. 2. Increased WBC. 3. Microcytic anemia. 4. Continued abdominal pain. 5. Hyponatremia. 6. History of coronary artery disease. 7. History of gastroesophageal reflux disease. 8. Hypertension. 9. Hyperlipidemia. 10.History of degenerative joint disease. 11.History of rheumatoid arthritis. 12.History of colostomy. 13.History of cyst with abscess. 14.Colonic polyps history. 15.History of coronary artery disease/stent. 16.History of anxiety, depression. 17.FULL CODE. RECOMMENDATIONS AND DISCUSSION: Continue current medications, management and symptomatic treatment. Otherwise, at this time, DVT prophylaxis. Incentive spirometry. Repeat labs. Closely follow with surgery. Further recommendations to follow. MMODL / IJN: [id number] /
[2020-07-29 19:56] LABS: Glucose,Whole Blood 116 mg/dL (75-99)
[2020-07-29] MEDS: MAGNESIUM OXIDE 400 MG TAB PO SCH (19:59)
[2020-07-29] MEDS: ATORVASTATIN 40 MG TAB PO SCH (19:59)
[2020-07-29] MEDS: OXYBUTYNIN XL 5 MG TAB.ER.24 PO SCH (20:23)
[2020-07-30] MEDS: MORPHINE SULFATE 4 MG/ML SYRINGE IVP PRN (05:38)
[2020-07-30] MEDS: SODIUM CHLORIDE 0.9% 1,000 ML IV SCH ×3 (06:09→20:30)
[2020-07-30 07:01] LABS: Potassium 5.3 mmol/L (3.5-5.1)
[2020-07-30 07:03] LABS: African American GFR (CKD) >90 (>60 ml/min/1.73 sqM); Anion Gap 4 mmol/L; Blood Urea Nitrogen 6 mg/dL (7-17); Calcium 8.5 mg/dL (8.4-10.2); Carbon Dioxide 23 mmol/L (22-30); Chloride 104 mmol/L (98-107); Glucose 121 mg/dL (74-99); Non-African American GFR(CKD) >90 (>60 ml/min/1.73 sqM); Sodium 131 mmol/L (137-145)
[2020-07-30 07:25] LABS: Glucose,Whole Blood 124 mg/dL (75-99)
[2020-07-30] MEDS: INSULIN ASPART (NovoLOG) 100 UNIT/ML VIAL SQ SCH ×4 (08:24→20:11)
[2020-07-30] MEDS: PRIMIDONE 50 MG TAB PO SCH ×2 (08:34→20:31)
[2020-07-30] MEDS: ASPIRIN 81 MG PO SCH (08:34)
[2020-07-30] MEDS: HEPARIN SODIUM,PORCINE/PF 5,000 UNIT/0.5 ML SYRINGE SQ SCH ×2 (08:35→20:30)
[2020-07-30] MEDS: metFORMIN 500 MG TAB PO SCH (08:35)
[2020-07-30] MEDS: atenoloL 25 MG TAB PO SCH (08:35)
[2020-07-30] MEDS: PANTOPRAZOLE 40 MG/10 ML VIAL IVP SCH (08:35)
[2020-07-30] MEDS: SPIRONOLACTONE 25 MG TAB PO SCH (08:35)
[2020-07-30] MEDS: FLUoxetine HCL 20 MG CAP PO SCH ×2 (08:35→20:30)
[2020-07-30 09:20] LABS: Basophils # (A) 0.04 X 10*3/uL (0.00-0.10); Basophils % (A) 0.2 %; Eosinophils # (A) 0.23 X 10*3/uL (0.04-0.35); Eosinophils % (A) 1.4 %; HCT 28.5 % (37.2-46.3); Lymphocytes # (A) 0.69 X 10*3/uL (0.90-5.00); Lymphocytes % (A) 4.1 %; MCH 20.1 pg (27.0-32.0); MCHC 28.1 g/dL (32.0-37.0); MCV 71.6 fL (80.0-97.0); Mean Platelet Volume 10.4 fL (9.5-12.2); Monocytes # (A) 1.07 X 10*3/uL (0.20-1.00); Monocytes % (A) 6.3 %; Neutrophils # (A) 14.79 X 10*3/uL (1.80-7.70); Neutrophils % (A) 87.4 %; Platelet Count 381 X 10*3/uL (140-440); RBC 3.98 X 10*6/uL (4.10-5.20); RDW 17.9 % (11.5-14.5); WBC 16.92 X 10*3/uL (4.50-10.00)
--- NOTE | 2020-07-30 10:41 | P.PN ---
Progress Note - Text Progress Note Date: 07/30/20 patient has some complaints of nausea and abdominal pain.patient has been passing gas. On exam vital signs are stable. Abdomen soft. Incision is clean dry tach Status post reversal of colostomy and repair of large incisional hernia. Patient will limit her oral intake today until her pain and nausea has improved.
[2020-07-30] MEDS ORDERED: MIDAZOLAM 2 MG/2 ML VIAL ONE (12:17)
[2020-07-30] MEDS ORDERED: ePHEDrine SULFATE/0.9% NACL/PF 50 MG/5 ML SYRINGE IV ONE (12:17)
[2020-07-30] MEDS ORDERED: fentaNYL (PF) 50 MCG/ML 2 ML AMP ONE (12:17)
[2020-07-30] MEDS ORDERED: LIDOCAINE 1% INJ 10MG/ML (20 ML MDV) ONE (12:17)
[2020-07-30] MEDS ORDERED: PHENYLEPHRINE-0.9% NACL SYG 1,000 MCG/10 ML SYRINGE ONE (12:17)
[2020-07-30] MEDS ORDERED: PROPOFOL 10 MG/ML 20 ML VIAL IV ONE (12:17)
[2020-07-30] MEDS ORDERED: ONDANSETRON 4 MG/2 ML VIAL ONE (12:17)
[2020-07-30 12:23] LABS: Glucose,Whole Blood 134 mg/dL (75-99)
--- NOTE | 2020-07-30 12:37 | P.PN ---
Progress Note - Text Progress Note Date: 07/29/20 The patient is status post, colostomy reversal, postoperative day number 2 The patient has no complaints of nausea vomiting or headache. The patient does not complain of any lower extremity numbness or weakness. The epidural is running at 10 mL per hour. VAS 8-10. The epidural will be discontinued.
[2020-07-30] MEDS: HYDROcodone/APAP 5-325MG 1 EACH TAB PO PRN ×2 (12:56→22:11)
[2020-07-30] MEDS: LEVOFLOXACIN 500MG-D5W PMX 500 MG in DEXTROSE/WATER 1 100ML.BAG IVPB SCH (14:32)
--- NOTE | 2020-07-30 15:24 | PN ---
PROGRESS NOTE DATE OF SERVICE: 07/30/2020 This 64-year-old woman who was admitted after exploratory laparotomy and reversal of colostomy is being closely monitored. Patient still complains of abdominal pain. No chest pain. No palpitations. No fever. Surgery is following the patient closely. PHYSICAL EXAMINATION: Alert and oriented x3. Pulse 97, blood pressure 120/70, respiration 18, temperature 98.2, pulse ox 94% on 3 L. NECK: No jugular venous distention. No lymph node enlargement. CARDIOVASCULAR: S1, S2, muffled. No S3, no S4, RESPIRATORY: Diminished breath sounds at the bases. No rhonchi, no crackles. ABDOMEN: Soft, status post surgery. LEGS: No edema, no swelling. NERVOUS SYSTEM: No focal deficits. LABS: Hemoglobin8, WBC 16.9, sodium 139, potassium 5.3. ASSESSMENT: 1. Status post exploratory laparotomy and reversal of colostomy and repair of incisional hernia and partial omentectomy. 2. Increased WBC. 3. Macrocytic anemia. 4. Continued abdominal pain. 5. Hyponatremia. 6. History of coronary artery disease. 7. History of gastroesophageal reflux disease. 8. Hypertension. 9. Hyperlipidemia. 10.History of degenerative joint disease. 11.History of rheumatoid arthritis. 12.History of colostomy. 13.History of cyst with abscess. 14.History of colonic polyps. 15.History of CAD, stent. 16.History of anxiety, depression. 17.FULL CODE. RECOMMENDATIONS AND DISCUSSION: I recommend to continue current management, continue symptomatic treatment. Continue the DVT prophylaxis. Continue proton pump inhibitors. Repeat labs. Closely follow with Surgery. Further recommendations to follow. MMODL / IJN: [id number] /
[2020-07-30 17:39] LABS: Glucose,Whole Blood 119 mg/dL (75-99)
[2020-07-30 18:25] LABS: Appearance,Urine Clear (Clear); Bilirubin,Urine Negative (Negative); Blood,Urine Negative (Negative); Color,Urine Yellow; Glucose,Urine (UA) Negative (Negative); Hyaline Casts,Urine 1 /lpf (0-2); Ketones,Urine Negative (Negative); Leukocyte Esterase,Urine Small (Negative); Mucus,Urine Many /hpf; Nitrite,Urine Negative (Negative); Protein,Urine Trace (Negative); RBC,Urine 4 /hpf (0-5); Specific Gravity,Urine 1.018 (1.001-1.035); Urobilinogen,Urine <2.0 mg/dL (<2.0); WBC,Urine 9 /hpf (0-5)
[2020-07-30] MEDS: LACTATED RINGERS 1,000 ML IV SCH (19:52)
[2020-07-30 20:07] LABS: Glucose,Whole Blood 114 mg/dL (75-99)
[2020-07-30] MEDS: MAGNESIUM OXIDE 400 MG TAB PO SCH (20:30)
[2020-07-30] MEDS: ATORVASTATIN 40 MG TAB PO SCH (20:30)
[2020-07-30] MEDS: OXYBUTYNIN XL 5 MG TAB.ER.24 PO SCH (20:31)
[2020-07-31] MEDS: SODIUM CHLORIDE 0.9% 1,000 ML IV SCH ×3 (05:35→21:13)
[2020-07-31 07:43] LABS: Glucose,Whole Blood 123 mg/dL (75-99)
[2020-07-31] MEDS: INSULIN ASPART (NovoLOG) 100 UNIT/ML VIAL SQ SCH ×4 (07:53→21:09)
[2020-07-31] MEDS: HYDROcodone/APAP 5-325MG 1 EACH TAB PO PRN ×3 (07:57→22:43)
[2020-07-31] MEDS: ASPIRIN 81 MG PO SCH (07:58)
[2020-07-31] MEDS: FLUoxetine HCL 20 MG CAP PO SCH ×2 (07:58→21:09)
[2020-07-31] MEDS: metFORMIN 500 MG TAB PO SCH (07:58)
[2020-07-31] MEDS: PRIMIDONE 50 MG TAB PO SCH ×2 (07:58→21:10)
[2020-07-31] MEDS: SPIRONOLACTONE 25 MG TAB PO SCH (07:59)
[2020-07-31] MEDS: HEPARIN SODIUM,PORCINE/PF 5,000 UNIT/0.5 ML SYRINGE SQ SCH ×2 (07:59→21:09)
[2020-07-31] MEDS: PANTOPRAZOLE 40 MG/10 ML VIAL IVP SCH (07:59)
[2020-07-31] MEDS: atenoloL 25 MG TAB PO SCH (07:59)
--- NOTE | 2020-07-31 11:02 | P.PN ---
Progress Note - Text Progress Note Date: 07/31/20 Patient feels better today. She's had bowel movement and flatus. On exam vital signs are stable. Abdomen soft. Incision is clean dry intact. Status post reversal colostomy Incisional hernia.. Patient will have her diet slowly advanced.
[2020-07-31 11:47] LABS: Glucose,Whole Blood 117 mg/dL (75-99)
[2020-07-31 12:24] LABS: Basophils # (A) 0.02 X 10*3/uL (0.00-0.10); Basophils % (A) 0.1 %; Eosinophils # (A) 0.27 X 10*3/uL (0.04-0.35); HCT 27.6 % (37.2-46.3); HGB 7.7 g/dL (12.0-15.0); Lymphocytes # (A) 0.75 X 10*3/uL (0.90-5.00); Lymphocytes % (A) 5.6 %; MCH 20.1 pg (27.0-32.0); MCHC 27.9 g/dL (32.0-37.0); MCV 71.9 fL (80.0-97.0); Mean Platelet Volume 10.2 fL (9.5-12.2); Monocytes # (A) 1.08 X 10*3/uL (0.20-1.00); Monocytes % (A) 8.1 %; Neutrophils # (A) 11.13 X 10*3/uL (1.80-7.70); Neutrophils % (A) 83.5 %; Platelet Count 433 X 10*3/uL (140-440); RBC 3.84 X 10*6/uL (4.10-5.20); RDW 18.1 % (11.5-14.5); WBC 13.35 X 10*3/uL (4.50-10.00)
[2020-07-31 12:47] LABS: African American GFR (CKD) 110.9 (60.0-200.0); Anion Gap 8.4 mmol/L (4.00-12.00); BUN/Creat Ratio 11.67 Ratio (12.00-20.00); Carbon Dioxide 21.6 mmol/L (21.6-31.8); Non-African American GFR(CKD) 95.7 (60.0-200.0)
[2020-07-31] MEDS: LEVOFLOXACIN 500MG-D5W PMX 500 MG in DEXTROSE/WATER 1 100ML.BAG IVPB SCH (15:15)
[2020-07-31 17:19] LABS: Glucose,Whole Blood 131 mg/dL (75-99)
--- NOTE | 2020-07-31 20:06 | PN ---
PROGRESS NOTE DATE OF SERVICE: 07/31/2020 This 64-year-old woman was admitted after exploratory laparotomy, reversal of colostomy and repair of incisional hernia. Still complaining of some abdominal pain. No chest pain. No palpitations. No fever. PHYSICAL EXAMINATION: Alert and oriented x3. Pulse 86, blood pressure 144/77, respiration 16, temperature 98.7, pulse ox 98% on 3 L. HEENT: Conjunctivae normal. Oral mucosa moist. NECK: No jugular venous distention. No lymph node enlargement. CARDIOVASCULAR: S1, S2, muffled. No S3, no S4, RESPIRATORY: Diminished breath sounds at the bases. A few scattered rhonchi. ABDOMEN: Soft, status post surgery. LEGS: No edema, no swelling. NERVOUS SYSTEM: No focal deficits. LAB STUDIES: WBC 13.3, hemoglobin is 7.7, sodium 133. ASSESSMENT: 1. Status post exploratory laparotomy, reversal of colostomy and repair of incisional hernia and partial omentectomy. 2. Increased WBC. 3. Macrocytic anemia. 4. Continued abdominal pain, improving. 5. Hyponatremia. 6. History of coronary artery disease. 7. History of gastroesophageal reflux disease. 8. Hypertension. 9. Hyperlipidemia. 10.History of DJD. 11.History of rheumatoid arthritis. 12.History of colostomy. 13.History of cyst with abscess. 14.History of colon polyp. 15.History of CAD, stent. 16.History of anxiety, depression. 17.FULL CODE. RECOMMENDATIONS: Recommend to continue current management and symptomatic treatment. Otherwise, at this time continue incentive spirometry, DVT prophylaxis, closely monitor with Surgery. Further recommendations to follow. MMODL / IJN: [id number] /
[2020-07-31 20:31] LABS: Glucose,Whole Blood 115 mg/dL (75-99)
[2020-07-31] MEDS: ATORVASTATIN 40 MG TAB PO SCH (21:09)
[2020-07-31] MEDS: MAGNESIUM OXIDE 400 MG TAB PO SCH (21:09)
[2020-07-31] MEDS: OXYBUTYNIN XL 5 MG TAB.ER.24 PO SCH (21:10)
[2020-08-01 07:19] LABS: Glucose,Whole Blood 124 mg/dL (75-99)
[2020-08-01] MEDS: INSULIN ASPART (NovoLOG) 100 UNIT/ML VIAL SQ SCH ×4 (08:00→20:54)
[2020-08-01] MEDS: SODIUM CHLORIDE 0.9% 1,000 ML IV SCH (08:10)
[2020-08-01] MEDS: HEPARIN SODIUM,PORCINE/PF 5,000 UNIT/0.5 ML SYRINGE SQ SCH ×2 (08:11→20:54)
[2020-08-01] MEDS: PANTOPRAZOLE 40 MG/10 ML VIAL IVP SCH (08:11)
[2020-08-01] MEDS: ASPIRIN 81 MG PO SCH (08:12)
[2020-08-01] MEDS: PRIMIDONE 50 MG TAB PO SCH ×2 (08:12→20:53)
[2020-08-01] MEDS: HYDROcodone/APAP 5-325MG 1 EACH TAB PO PRN ×2 (08:12→17:30)
[2020-08-01] MEDS: FLUoxetine HCL 20 MG CAP PO SCH ×2 (08:12→20:53)
[2020-08-01] MEDS: SPIRONOLACTONE 25 MG TAB PO SCH (08:12)
[2020-08-01] MEDS: atenoloL 25 MG TAB PO SCH (08:12)
[2020-08-01] MEDS: metFORMIN 500 MG TAB PO SCH (08:12)
[2020-08-01 10:39] LABS: African American GFR (CKD) >90 (>60 ml/min/1.73 sqM); Anion Gap 8 mmol/L; Blood Urea Nitrogen 7 mg/dL (7-17); Calcium 8.4 mg/dL (8.4-10.2); Carbon Dioxide 21 mmol/L (22-30); Chloride 104 mmol/L (98-107); Glucose 117 mg/dL (74-99); Non-African American GFR(CKD) >90 (>60 ml/min/1.73 sqM); Potassium 4.2 mmol/L (3.5-5.1); Sodium 133 mmol/L (137-145)
[2020-08-01 10:55] LABS: Anisocytosis Slight; Basophils % (A) 0 %; Eosinophils # (A) 0.4 k/uL (0-0.7); Eosinophils % (A) 4 %; HCT 26.1 % (34.0-46.0); Hypochromasia Marked; Lymphocytes # (A) 0.8 k/uL (1.0-4.8); Lymphocytes % (A) 8 %; MCH 19.7 pg (25.0-35.0); MCHC 28.7 g/dL (31.0-37.0); MCV 68.6 fL (80.0-100.0); Mean Platelet Volume 7.4; Microcytosis Marked; Monocytes # (A) 0.8 k/uL (0-1.0); Monocytes % (A) 7 %; Neutrophils % (A) 79 %; Platelet Count 450 k/uL (150-450); Poikilocytosis Slight; RDW 17.1 % (11.5-15.5); WBC 10.2 k/uL (3.8-10.6)
[2020-08-01 11:10] LABS: HGB 7.5 gm/dL (11.4-16.0)
[2020-08-01 12:15] LABS: Glucose,Whole Blood 124 mg/dL (75-99)
[2020-08-01] MEDS: LEVOFLOXACIN 500MG-D5W PMX 500 MG in DEXTROSE/WATER 1 100ML.BAG IVPB SCH (13:07)
--- NOTE | 2020-08-01 14:50 | P.PN ---
Subjective Progress Note Date: 08/01/20 CHIEF COMPLAINT: History of perforated diverticulitis and parastomal hernia HISTORY OF PRESENT ILLNESS: Patient is status post exploratory laparotomy, reversal of colostomy, repair of incisional hernia and partial omentectomy for history of perforated diverticulitis and incisional hernia on 07/27/2020. Patient complains of abdominal pain. She does report that the pain is controlled with pain medication. She is also complaining that the tape on the wound VAC is bothering her. She is having flatus. Denies bowel movements. She is currently on a full liquid diet. Afebrile. WBC is 10.2 hemoglobin 7.5 sodium 133 JASMINE drain output 280ml in a 24 hour period PHYSICAL EXAM: VITAL SIGNS: Reviewed. GENERAL: Well-developed in no acute distress. HEENT: No sclera icterus. Extraocular movements grossly intact. Moist buccal mucosa. Head is atraumatic, normocephalic. ABDOMEN: Soft. Nondistended. Has prevena wound vac dressing in place. JASMINE drain with sanguinous fluid NEUROLOGIC: Alert and oriented. Cranial nerves II through XII grossly intact. ASSESSMENT: 1. Perforated diverticulitis and incisional hernia status post exploratory laparotomy, reversal of colostomy, repair of incisional hernia and partial omentectomy 2. Leukocytosis. White count has normalized PLAN: -Continue full liquid diet -Continue antibiotics -Wound VAC dressing to be changed today -Wound VAC dressing to be changed on Saturday -Consult wound care service -Encouraged patient to increase activity -Encouraged patient to use incentive spirometer -Continue PT OT -Patient may require ECF placement -GI prophylaxis Protonix and DVT prophylaxis subcu heparin Physician Side Show Entertainer note has been reviewed by physician. Signing provider agrees with the documented findings, assessment, and plan of care. Objective - Vital Signs Vital signs: Vital Signs Temp 98.2 F 08/01/20 08:00 Pulse 95 08/01/20 08:00 Resp 20 08/01/20 08:00 BP 151/83 08/01/20 08:00 Pulse Ox 90 L 08/01/20 08:00 Intake & Output 07/31/20 08/01/20 08/01/20 18:59 06:59 18:59 Intake Total 118 Output Total 680 200 Balance -680 -200 118 Intake: Oral 118 Output: Drainage 80 200 Abdomen 50 50 Right Lower Abdomen 30 150 Urine 600 Other: Voiding Method Indwelling Catheter Indwelling Catheter Bedside Commode # Voids 2 5 1 - Labs CBC & Chem 7: 08/01/20 09:39 08/01/20 09:39 Labs: Abnormal Lab Results - Last 24 Hours (Table) 07/31/20 07/31/20 08/01/20 Range/Units 17:17 20:30 07:17 Hgb (11.4-16.0) gm/dL Hct (34.0-46.0) % MCV (80.0-100.0) fL MCH (25.0-35.0) pg MCHC (31.0-37.0) g/dL RDW (11.5-15.5) % Neutrophils # (1.3-7.7) k/uL Lymphocytes # (1.0-4.8) k/uL Sodium (137-145) mmol/L Carbon Dioxide (22-30) mmol/L Glucose (74-99) mg/dL POC Glucose (mg/dL) 131 H 115 H 124 H (75-99) mg/dL 08/01/20 08/01/20 08/01/20 Range/Units 09:39 09:39 12:13 Hgb 7.5 L D (11.4-16.0) gm/dL Hct 26.1 L (34.0-46.0) % MCV 68.6 L (80.0-100.0) fL MCH 19.7 L (25.0-35.0) pg MCHC 28.7 L (31.0-37.0) g/dL RDW 17.1 H (11.5-15.5) % Neutrophils # 8.0 H (1.3-7.7) k/uL Lymphocytes # 0.8 L (1.0-4.8) k/uL Sodium 133 L (137-145) mmol/L Carbon Dioxide 21 L (22-30) mmol/L Glucose 117 H (74-99) mg/dL POC Glucose (mg/dL) 124 H (75-99) mg/dL
--- NOTE | 2020-08-01 14:52 | P.CONS ---
History of Present Illness - Reason for Consult Consult date: 08/01/20 - History of Present Illness This is a 65-year-old patient being seen on for management of the wound VAC. Patient has approving incisional wound VAC in place. Which was removed showing a midline abdominal incision with johnson intact. The ulceration is well approximated with no drainage noted. At this time patient has no open ulcerations. Patient's past medical history is significant for coronary artery disease, GERD, hyperlipidemia, hypertension, rheumatoid arthritis, colostomy reversal, incisional hernia which was removed. Review Of Systems: Constitutional: No fever, no chills, no night sweats. No weight change. No weakness, fatigue or lethargy. No daytime sleepiness. Integumentary:reports wounds, no lesions. No rash or pruritus. No unusual bruising. No change in hair or nails. Physical exam: General Appearance: Alert, cooperative, no distress, appears stated age. Skin: See HPI all other Skin color, texture, tugor normal, no rashes or lesions. Neurologic: Alert oriented x3 Assessment: 1. Nonhealing ulceration skin breakdown Plan: 1. Apply absorptive silver to the incision saline moistened gauze, ABDs and secured paper tape. Change when he was a Saturday. Patient has no open ulc erations at this time. If one develops we'll be happy to see her in the wound care center. Thank you for the consultation any questions with contact the wound care center DNP note has been reviewed and discussed with Dr. Vinson and the impression and plan of care has been directed as dictated. Past Medical History Past Medical History: Coronary Artery Disease (CAD), GERD/Reflux, Hyperlipidemia, Hypertension, Osteoarthritis (OA), Rheumatoid Arthritis (RA) Additional Past Medical History / Comment(s): colostomy, hx of fistula with abscess, sx at [facility], hx of colon polyps, hx of kidney stones, incisional hernia, restless leg, states on metformin for weight loss, not diabetes, hx of urinary incontinence, hx migraines History of Any Multi-Drug Resistant Organisms: None Reported Past Surgical History: Heart Catheterization With Stent Additional Past Surgical History / Comment(s): colostomy 08/2018 @ [facility], 2 cardiac stents, lithotripsy Past Anesthesia/Blood Transfusion Reactions: Previous Problems w/ Anesthesia Additional Past Anesthesia/Blood Transfusion Reaction / Comm: trouble waking up in past Date of Last Stent Placement:: 2008? Past Psychological History: Anxiety, Depression Smoking Status: Never smoker Past Alcohol Use History: None Reported Past Drug Use History: None Reported - Past Family History Mother Family Medical History: No Reported History Medications and Allergies Home Medications Medication Instructions Recorded Confirmed Type Atorvastatin [Lipitor] 40 mg PO HS 07/21/20 07/26/20 History FLUoxetine HCL [PROzac] 20 mg PO BID 07/21/20 07/26/20 History Magnesium 500 mg PO HS 07/21/20 07/26/20 History Omeprazole 20 mg PO DAILY 07/21/20 07/26/20 History SUMAtriptan SUCCINATE [Imitrex] 25 mg PO DAILY PRN 07/21/20 07/26/20 History Spironolactone [Aldactone] 25 mg PO DAILY 07/21/20 07/26/20 History Tolterodine [Detrol] 2 mg PO BID 07/21/20 07/26/20 History atenoloL [Atenolol] 25 mg PO DAILY 07/21/20 07/26/20 History hydrOXYzine HCL [Atarax] 10 mg PO BID PRN 07/21/20 07/26/20 History metFORMIN HCL [Glucophage] 500 mg PO DAILY 07/21/20 07/26/20 History rOPINIRole HCL [Requip] 0.5 mg PO HS 07/21/20 07/26/20 History Acetaminophen Tab [Tylenol Tab] 1,000 mg PO Q6HR PRN 07/26/20 07/26/20 History Aspirin EC [Ecotrin Low Dose] 81 mg PO DAILY 07/26/20 07/26/20 History Melatonin 5 mg PO HS PRN 07/26/20 07/26/20 History Primidone [Mysoline] 50 mg PO BID 07/26/20 07/26/20 History Allergies Allergy/AdvReac Type Severity Reaction Status Date / Time amoxicillin Allergy Rash/Hives Verified 07/27/20 09:15 hydromorphone [From Dilaudid] Allergy Rash/Hives Verified 07/27/20 09:15 Iodinated Contrast Media Allergy Rash/Hives Verified 07/27/20 09:15 Physical Exam Vitals: Vital Signs Temp Pulse Resp BP BP Pulse Ox 08/01/20 08:00 98.2 F 95 20 151/83 90 L 06/07/21 02:00 98.3 F 101 H 18 132/75 93 L 07/31/20 21:13 96 16 07/31/20 20:00 98.6 F 96 16 165/80 94 L 07/31/20 15:00 98.7 F 86 16 144/76 97 Intake and Output 07/31/20 08/01/20 08/01/20 22:59 06:59 14:59 Intake Total 118 Output Total 130 120 Balance -130 -120 118 Intake: Oral 118 Output: Drainage 130 120 Abdomen 100 Right Lower Abdomen 30 120 Other: Voiding Method Indwelling Catheter Bedside Commode # Voids 2 5 1 Results CBC & Chem 7: 08/01/20 09:39 08/01/20 09:39 Labs: Abnormal Lab Results - Last 24 Hours (Table) 07/31/20 07/31/20 08/01/20 Range/Units 17:17 20:30 07:17 Hgb (11.4-16.0) gm/dL Hct (34.0-46.0) % MCV (80.0-100.0) fL MCH (25.0-35.0) pg MCHC (31.0-37.0) g/dL RDW (11.5-15.5) % Neutrophils # (1.3-7.7) k/uL Lymphocytes # (1.0-4.8) k/uL Sodium (137-145) mmol/L Carbon Dioxide (22-30) mmol/L Glucose (74-99) mg/dL POC Glucose (mg/dL) 131 H 115 H 124 H (75-99) mg/dL 08/01/20 08/01/20 08/01/20 Range/Units 09:39 09:39 12:13 Hgb 7.5 L D (11.4-16.0) gm/dL Hct 26.1 L (34.0-46.0) % MCV 68.6 L (80.0-100.0) fL MCH 19.7 L (25.0-35.0) pg MCHC 28.7 L (31.0-37.0) g/dL RDW 17.1 H (11.5-15.5) % Neutrophils # 8.0 H (1.3-7.7) k/uL Lymphocytes # 0.8 L (1.0-4.8) k/uL Sodium 133 L (137-145) mmol/L Carbon Dioxide 21 L (22-30) mmol/L Glucose 117 H (74-99) mg/dL POC Glucose (mg/dL) 124 H (75-99) mg/dL Assessment and Plan (1) Non-pressure chronic ulcer of skin of other sites limited to breakdown of skin Current Visit: Yes Status: Acute Code(s): L98.491 - NON-PRS CHRONIC ULCER SKIN/ SITES LIMITED TO BRKDWN SKIN SNOMED Code(s): 79437581 (2) Disruption of external operation (surgical) wound, not elsewhere classified, initial encounter Current Visit: Yes Status: Acute Code(s): T81.31XA - DISRUPTION OF EXTERNAL OPERATION (SURGICAL) WOUND, NEC, INIT SNOMED Code(s): 33034694
[2020-08-01 17:24] LABS: Glucose,Whole Blood 110 mg/dL (75-99)
[2020-08-01 20:31] LABS: Glucose,Whole Blood 112 mg/dL (75-99)
[2020-08-01] MEDS: OXYBUTYNIN XL 5 MG TAB.ER.24 PO SCH (20:53)
[2020-08-01] MEDS: ATORVASTATIN 40 MG TAB PO SCH (20:53)
[2020-08-01] MEDS: MAGNESIUM OXIDE 400 MG TAB PO SCH (20:54)
--- NOTE | 2020-08-01 21:07 | PN ---
PROGRESS NOTE DATE OF SERVICE: 08/01/2020. This 64-year-old woman who was admitted after exploratory laparotomy, is complaining of abdominal pain. No chest pain. No palpitations. No fever. PT, OT evaluation is evaluating the patient for possible ECF. PHYSICAL EXAMINATION: Pulse 88, blood pressure 147/72, respiration 18, temperature 98.2, pulse ox 94% on room air. HEENT: Conjunctivae normal. NECK: No JVD. CARDIOVASCULAR: S1, S2. RESPIRATIONS: Breath sounds diminished in the bases. A few scattered rhonchi. ABDOMEN: Soft, mild diffuse tenderness. LEGS are no edema. No swelling. NERVOUS SYSTEM: No focal deficits. LAB: Hemoglobin 7.5, sodium 133. ASSESSMENT: 1. Status post exploratory laparotomy, reversal of colostomy, repair of incisional hernia and partial omentectomy. 2. Increased WBC. 3. Hyponatremia mild. 4. Anemia possibly of chronic disease, macrocytic. 5. Continued abdominal pain. 6. Hyponatremia. 7. History of coronary artery disease. 8. History of gastroesophageal reflux disease. 9. Hypertension. 10.Hyperlipidemia. 11.History of degenerative joint disease. 12.History of rheumatoid arthritis. 13.History of colostomy. 14.History of cyst with abscess. 15.History of colonic polyps. 16.History of coronary artery disease/stent. 17.History of anxiety, depression. 18.FULL CODE. 19.Gait dysfunction. RECOMMENDATIONS AND DISCUSSION: Recommend to continue current medications, management and symptomatic treatment. Recommend PT/OT evaluation and social work consultation also sought for possible evaluation for ECF rehab. Evaluate the home situation. Otherwise guarded prognosis. Further recommendations to follow. Closely follow with surgery. MMODL / IJN: [id number] /
[2020-08-02] MEDS: HYDROcodone/APAP 5-325MG 1 EACH TAB PO PRN (00:41)
[2020-08-02 07:34] LABS: Glucose,Whole Blood 104 mg/dL (75-99)
[2020-08-02] MEDS: INSULIN ASPART (NovoLOG) 100 UNIT/ML VIAL SQ SCH ×4 (08:19→21:27)
[2020-08-02 09:34] LABS: Basophils # (A) 0.05 X 10*3/uL (0.00-0.10); Basophils % (A) 0.5 %; Eosinophils # (A) 0.41 X 10*3/uL (0.04-0.35); Eosinophils % (A) 4.2 %; HCT 25.3 % (37.2-46.3); Lymphocytes # (A) 1.09 X 10*3/uL (0.90-5.00); Lymphocytes % (A) 11.1 %; MCH 19.8 pg (27.0-32.0); MCHC 27.7 g/dL (32.0-37.0); MCV 71.5 fL (80.0-97.0); Mean Platelet Volume 10.1 fL (9.5-12.2); Monocytes # (A) 0.98 X 10*3/uL (0.20-1.00); Neutrophils # (A) 7.17 X 10*3/uL (1.80-7.70); Platelet Count 424 X 10*3/uL (140-440); RBC 3.54 X 10*6/uL (4.10-5.20); RDW 18.5 % (11.5-14.5); WBC 9.82 X 10*3/uL (4.50-10.00)
[2020-08-02] MEDS: ASPIRIN 81 MG PO SCH (09:47)
[2020-08-02] MEDS: atenoloL 25 MG TAB PO SCH (09:47)
[2020-08-02] MEDS: metFORMIN 500 MG TAB PO SCH (09:47)
[2020-08-02] MEDS: SPIRONOLACTONE 25 MG TAB PO SCH (09:47)
[2020-08-02] MEDS: FLUoxetine HCL 20 MG CAP PO SCH ×2 (09:47→21:29)
[2020-08-02] MEDS: PANTOPRAZOLE 40 MG/10 ML VIAL IVP SCH (09:47)
[2020-08-02] MEDS: PRIMIDONE 50 MG TAB PO SCH ×2 (09:49→21:29)
[2020-08-02] MEDS: MORPHINE SULFATE 4 MG/ML SYRINGE IVP PRN ×2 (09:55→16:11)
[2020-08-02 10:19] LABS: Anion Gap 11.1 mmol/L (4.00-12.00); BUN/Creat Ratio 7.5 Ratio (12.00-20.00); Carbon Dioxide 23.9 mmol/L (21.6-31.8); Non-African American GFR(CKD) 76.8 (60.0-200.0); Potassium 4.5 mmol/L (3.5-5.5)
[2020-08-02] MEDS: HEPARIN SODIUM,PORCINE/PF 5,000 UNIT/0.5 ML SYRINGE SQ SCH ×2 (10:41→21:29)
[2020-08-02 12:06] LABS: Glucose,Whole Blood 124 mg/dL (75-99)
[2020-08-02 13:05] VITALS: BMI 30.5
[2020-08-02] MEDS: LEVOFLOXACIN 500MG-D5W PMX 500 MG in DEXTROSE/WATER 1 100ML.BAG IVPB SCH (15:55)
--- NOTE | 2020-08-02 16:34 | P.PN ---
Subjective Progress Note Date: 08/02/20 CHIEF COMPLAINT: History of perforated diverticulitis and parastomal hernia HISTORY OF PRESENT ILLNESS: Patient is status post exploratory laparotomy, reversal of colostomy, repair of incisional hernia and partial omentectomy for history of perforated diverticulitis and incisional hernia on 07/27/2020. Patient complains of abdominal pain. She does report that the pain is controlled with pain medication. Patient was seen by wound care service. She is having flatus. Denies bowel movements. She is currently on a full liquid diet. Afebrile. WBC 9.8 to hemoglobin 7 platelets 424 Patient seen and examined with Dr Sanchez PHYSICAL EXAM: VITAL SIGNS: Reviewed. GENERAL: Well-developed in no acute distress. HEENT: No sclera icterus. Extraocular movements grossly intact. Moist buccal mucosa. Head is atraumatic, normocephalic. ABDOMEN: Soft. Nondistended. Has prevena wound vac dressing in place. JASMINE drain with sanguinous fluid NEUROLOGIC: Alert and oriented. Cranial nerves II through XII grossly intact. ASSESSMENT: 1. Perforated diverticulitis and incisional hernia status post exploratory laparotomy, reversal of colostomy, repair of incisional hernia and partial omentectomy 2. Leukocytosis. White count has normalized PLAN: -Continue full liquid diet -Continue antibiotics -Wound VAC dressing to be changed on Saturday -Encouraged patient to increase activity -Encouraged patient to use incentive spirometer -Continue PT OT -Patient may require ECF placement -GI prophylaxis Protonix and DVT prophylaxis subcu heparin Physician Benefits Consultant note has been reviewed by physician. Signing provider agrees with the documented findings, assessment, and plan of care. Objective - Vital Signs Vital signs: Vital Signs Temp 98.1 F 08/02/20 14:00 Pulse 88 08/02/20 14:00 Resp 16 08/02/20 14:00 BP 126/74 08/02/20 14:00 Pulse Ox 96 08/02/20 14:00 Intake & Output 08/01/20 08/02/20 08/02/20 18:59 06:59 18:59 Intake Total 118 Balance 118 Weight 80.739 kg Intake: Oral 118 Other: Voiding Method Bedside Commode Bedside Commode Toilet # Voids 5 2 # Bowel Movements 1 - Labs CBC & Chem 7: 08/02/20 05:52 08/02/20 05:52 Labs: Abnormal Lab Results - Last 24 Hours (Table) 08/01/20 08/01/20 08/02/20 Range/Units 17:23 20:30 05:52 RBC 3.54 L (4.10-5.20) X 10*6/uL Hgb 7.0 L (12.0-15.0) g/dL Hct 25.3 L (37.2-46.3) % MCV 71.5 L (80.0-97.0) fL MCH 19.8 L (27.0-32.0) pg MCHC 27.7 L (32.0-37.0) g/dL RDW 18.5 H (11.5-14.5) % Immature Gran # 0.12 H (0.00-0.04) X 10*3/uL Eosinophils # 0.41 H (0.04-0.35) X 10*3/uL BUN (9.0-27.0) mg/dL BUN/Creatinine Ratio (12.00-20.00) Ratio POC Glucose (mg/dL) 110 H 112 H (75-99) mg/dL 08/02/20 08/02/20 08/02/20 Range/Units 05:52 07:33 12:04 RBC (4.10-5.20) X 10*6/uL Hgb (12.0-15.0) g/dL Hct (37.2-46.3) % MCV (80.0-97.0) fL MCH (27.0-32.0) pg MCHC (32.0-37.0) g/dL RDW (11.5-14.5) % Immature Gran # (0.00-0.04) X 10*3/uL Eosinophils # (0.04-0.35) X 10*3/uL BUN 6.0 L (9.0-27.0) mg/dL BUN/Creatinine Ratio 7.50 L (12.00-20.00) Ratio POC Glucose (mg/dL) 104 H 124 H (75-99) mg/dL
[2020-08-02 17:28] LABS: Glucose,Whole Blood 109 mg/dL (75-99)
--- NOTE | 2020-08-02 17:30 | PN ---
PROGRESS NOTE DATE OF SERVICE: 08/02/2020 INTERVAL HISTORY: This is a 65-year-old woman was admitted after exploratory laparotomy and reversal of colostomy. She is being closely monitored. No chest pain. No palpitations. No fever. PHYSICAL EXAMINATION: GENERAL: Patient is alert and oriented times three. VITAL SIGNS: Pulse 88, blood pressure 126/74, respirations 16, temperature 98.1, pulse ox 96% on room air. HEENT: Conjunctivae normal. Oral mucosa moist. NECK: No jugular venous distention. No carotid bruits. No lymph node enlargement. RESPIRATORY: Breath sounds diminished at the bases. No rhonchi, no crackles. HEART: S1 and S2, muffled. ABDOMEN: Soft, status post surgery. EXTREMITIES: No edema, no swelling. NERVOUS: No focal deficits. LABS: Hemoglobin 7. ASSESSMENT: 1. Status post exploratory laparotomy, reversal of colostomy, repair of incisional hernia and as well as partial omentectomy. 2. Increased WBC. 3. Anemia multifactorial possibly of chronic disease and macrocytic. 4. Hyponatremia mild. 5. Continued abdominal pain. 6. Hyponatremia. 7. History of coronary artery disease with stent. 8. History of gastroesophageal reflux disease. 9. Hypertension. 10.Hyperlipidemia. 11.History of degenerative joint disease. 12.History of rheumatoid arthritis. 13.History of colostomy. 14.History of cyst with abscess. 15.History of colonic polyps. 16.History of anxiety, depression. 17.Gait dysfunction. 18.FULL CODE. RECOMMENDATION AND DISCUSSION: In this 65-year-old woman who presented with multiple complex medical issues, we will monitor the patient closely. Continue the current medications, continue symptomatic treatment. Otherwise, at this time I would recommend repeat labs in the morning and closely monitor. Possible ECF rehab. Guarded prognosis. Further recommendations to follow. MMODL / IJN: [id number] /
[2020-08-02 20:16] LABS: Glucose,Whole Blood 118 mg/dL (75-99)
[2020-08-02] MEDS: OXYBUTYNIN XL 5 MG TAB.ER.24 PO SCH (21:29)
[2020-08-02] MEDS: MAGNESIUM OXIDE 400 MG TAB PO SCH (21:29)
[2020-08-02] MEDS: ATORVASTATIN 40 MG TAB PO SCH (21:29)
[2020-08-03] MEDS: HYDROcodone/APAP 5-325MG 1 EACH TAB PO PRN ×5 (00:55→20:29)
[2020-08-03 07:22] LABS: Glucose,Whole Blood 110 mg/dL (75-99)
[2020-08-03] MEDS: atenoloL 25 MG TAB PO SCH (07:42)
[2020-08-03] MEDS: FLUoxetine HCL 20 MG CAP PO SCH ×2 (07:42→20:29)
[2020-08-03] MEDS: metFORMIN 500 MG TAB PO SCH (07:42)
[2020-08-03] MEDS: SPIRONOLACTONE 25 MG TAB PO SCH (07:42)
[2020-08-03] MEDS: ASPIRIN 81 MG PO SCH (07:42)
[2020-08-03] MEDS: HEPARIN SODIUM,PORCINE/PF 5,000 UNIT/0.5 ML SYRINGE SQ SCH ×2 (07:43→20:28)
[2020-08-03] MEDS: PRIMIDONE 50 MG TAB PO SCH ×2 (07:43→20:29)
[2020-08-03] MEDS: PANTOPRAZOLE 40 MG/10 ML VIAL IVP SCH ×2 (07:44→07:45)
[2020-08-03] MEDS: INSULIN ASPART (NovoLOG) 100 UNIT/ML VIAL SQ SCH ×4 (07:44→20:02)
[2020-08-03 10:19] LABS: Basophils # (A) 0.05 X 10*3/uL (0.00-0.10); Basophils % (A) 0.5 %; Eosinophils # (A) 0.49 X 10*3/uL (0.04-0.35); Eosinophils % (A) 5.1 %; HCT 26.2 % (37.2-46.3); HGB 7.2 g/dL (12.0-15.0); Lymphocytes # (A) 1.02 X 10*3/uL (0.90-5.00); Lymphocytes % (A) 10.5 %; MCH 20.1 pg (27.0-32.0); MCHC 27.5 g/dL (32.0-37.0); Mean Platelet Volume 10.6 fL (9.5-12.2); Monocytes # (A) 0.77 X 10*3/uL (0.20-1.00); Monocytes % (A) 7.9 %; Neutrophils # (A) 7.18 X 10*3/uL (1.80-7.70); Platelet Count 268 X 10*3/uL (140-440); RBC 3.59 X 10*6/uL (4.10-5.20); RDW 18.6 % (11.5-14.5)
[2020-08-03 10:20] LABS: Acanthocytes 2+; Microcytosis (M) 2+
[2020-08-03 11:42] LABS: Glucose,Whole Blood 122 mg/dL (75-99)
[2020-08-03] MEDS: LEVOFLOXACIN 500MG-D5W PMX 500 MG in DEXTROSE/WATER 1 100ML.BAG IVPB SCH (13:23)
--- NOTE | 2020-08-03 15:28 | P.PN ---
Subjective Progress Note Date: 08/03/20 CHIEF COMPLAINT: History of perforated diverticulitis and parastomal hernia HISTORY OF PRESENT ILLNESS: Patient is status post exploratory laparotomy, reversal of colostomy, repair of incisional hernia and partial omentectomy for history of perforated diverticulitis and incisional hernia on 07/27/2020. Patient complains of abdominal pain. She does report that the pain is controlled with pain medication. Patient was seen by wound care service. She has had BM and flatus. Denies any nausea or vomiting. She is currently on a full liquid diet. Afebrile. WBC 9.7 to hemoglobin 7.2 patient did work with physical therapy yesterday and was able to Amaryl he down to the nurses station. Patient seen and examined with Dr Sanchez PHYSICAL EXAM: VITAL SIGNS: Reviewed. GENERAL: Well-developed in no acute distress. HEENT: No sclera icterus. Extraocular movements grossly intact. Moist buccal mucosa. Head is atraumatic, normocephalic. ABDOMEN: Soft. Nondistended. Incision site clean dry and intact JASMINE drain with sanguinous fluid NEUROLOGIC: Alert and oriented. Cranial nerves II through XII grossly intact. ASSESSMENT: 1. Perforated diverticulitis and incisional hernia status post exploratory laparotomy, reversal of colostomy, repair of incisional hernia and partial omentectomy 2. Leukocytosis. White count has normalized PLAN: -Advance diet to regular -Continue to work with physical therapy -Anticipating discharge home with home care tomorrow -Continue antibiotics -Encouraged patient to increase activity -Encouraged patient to use incentive spirometer -GI prophylaxis Protonix and DVT prophylaxis subcu heparin Physician Statistics Tutor note has been reviewed by physician. Signing provider agrees with the documented findings, assessment, and plan of care. Objective - Vital Signs Vital signs: Vital Signs Temp 98.2 F 08/03/20 14:00 Pulse 84 08/03/20 14:00 Resp 19 08/03/20 14:00 BP 146/74 08/03/20 14:00 Pulse Ox 95 08/03/20 14:00 Intake & Output 08/02/20 08/03/20 08/03/20 18:59 06:59 18:59 Intake Total 360 Output Total 36 Balance -36 360 Weight 80.739 kg Intake: Oral 360 Output: Drainage 36 Right Lower Abdomen 36 Other: Voiding Method Toilet Toilet # Voids 2 3 - Labs CBC & Chem 7: 08/03/20 05:28 08/02/20 05:52 Labs: Abnormal Lab Results - Last 24 Hours (Table) 08/02/20 08/02/20 08/03/20 Range/Units 17:27 20:15 05:28 RBC 3.59 L (4.10-5.20) X 10*6/uL Hgb 7.2 L (12.0-15.0) g/dL Hct 26.2 L (37.2-46.3) % MCV 73.0 L (80.0-97.0) fL MCH 20.1 L (27.0-32.0) pg MCHC 27.5 L (32.0-37.0) g/dL RDW 18.6 H (11.5-14.5) % Immature Gran # 0.19 H (0.00-0.04) X 10*3/uL Eosinophils # 0.49 H (0.04-0.35) X 10*3/uL POC Glucose (mg/dL) 109 H 118 H (75-99) mg/dL 08/03/20 08/03/20 Range/Units 07:20 11:41 RBC (4.10-5.20) X 10*6/uL Hgb (12.0-15.0) g/dL Hct (37.2-46.3) % MCV (80.0-97.0) fL MCH (27.0-32.0) pg MCHC (32.0-37.0) g/dL RDW (11.5-14.5) % Immature Gran # (0.00-0.04) X 10*3/uL Eosinophils # (0.04-0.35) X 10*3/uL POC Glucose (mg/dL) 110 H 122 H (75-99) mg/dL
[2020-08-03 16:58] LABS: Glucose,Whole Blood 133 mg/dL (75-99)
--- NOTE | 2020-08-03 19:27 | PN ---
PROGRESS NOTE DATE OF SERVICE: 08/03/2020 INTERVAL HISTORY: This 65-year-old woman was admitted after exploratory laparotomy, reversal of colostomy with repair of incisional hernia. Complaining of severe pain. Patient apparently had poor social support also. No chest pain. No palpitations. No fever. PHYSICAL EXAMINATION: GENERAL: Patient is alert and oriented times three. VITAL SIGNS: Pulse 84, blood pressure 146/74, respirations 19, temperature 98.2, pulse ox 94% on room air. HEENT: Conjunctivae normal. NECK: No jugular venous distention. No carotid bruits. No lymph node enlargement. RESPIRATORY: Breath sounds diminished at the bases. No rhonchi, no crackles. HEART: S1 and S2, muffled. ABDOMEN: Soft, status post surgery. EXTREMITIES: No edema, no swelling. NERVOUS: No focal deficits. LAB: Hemoglobin 7.2, stable. ASSESSMENT: 1. Status post exploratory laparotomy, reversal of colostomy, repair of incisional hernia as well as partial omentectomy. 2. Increased WBC. 3. Anemia multifactorial possibly chronic disease and macrocytic. 4. Hyponatremia mild. 5. Continued abdominal pain. 6. Hyponatremia. 7. History of CAD with stent. 8. History of gastroesophageal reflux disease. 9. Hypertension. 10.Hyperlipidemia. 11.History of degenerative joint disease. 12.History of rheumatoid arthritis. 13.History of colostomy. 14.History of cyst with abscess. 15.History of colonic polyp. 16.History of anxiety, depression. 17.Gait dysfunction. 18.FULL CODE. RECOMMENDATION AND DISCUSSION: Recommend to continue current medications, continue symptomatic treatment. Follow closely with surgery. PT OT evaluation. Otherwise recommend to continue antibiotics. Continue wound VAC. Most recent cultures are negative at this time. The patient is on Levaquin. Further recommendations to follow. MMODL / IJN: [id number] /
[2020-08-03 19:51] LABS: Glucose,Whole Blood 129 mg/dL (75-99)
[2020-08-03] MEDS: OXYBUTYNIN XL 5 MG TAB.ER.24 PO SCH (20:29)
[2020-08-03] MEDS: ATORVASTATIN 40 MG TAB PO SCH (20:29)
[2020-08-03] MEDS: MAGNESIUM OXIDE 400 MG TAB PO SCH (20:29)
[2020-08-04] MEDS: HYDROcodone/APAP 5-325MG 1 EACH TAB PO PRN ×4 (01:47→23:49)
[2020-08-04 07:36] LABS: Glucose,Whole Blood 97 mg/dL (75-99)
[2020-08-04] MEDS: INSULIN ASPART (NovoLOG) 100 UNIT/ML VIAL SQ SCH ×4 (07:40→23:48)
[2020-08-04] MEDS: PRIMIDONE 50 MG TAB PO SCH ×2 (08:30→23:50)
[2020-08-04] MEDS: HEPARIN SODIUM,PORCINE/PF 5,000 UNIT/0.5 ML SYRINGE SQ SCH ×2 (08:30→23:48)
[2020-08-04] MEDS: atenoloL 25 MG TAB PO SCH (08:30)
[2020-08-04] MEDS: ASPIRIN 81 MG PO SCH (08:30)
[2020-08-04] MEDS: SPIRONOLACTONE 25 MG TAB PO SCH (08:30)
[2020-08-04] MEDS: metFORMIN 500 MG TAB PO SCH (08:30)
[2020-08-04] MEDS: FLUoxetine HCL 20 MG CAP PO SCH ×2 (08:30→23:50)
[2020-08-04] MEDS: PANTOPRAZOLE 40 MG/10 ML VIAL IVP SCH (08:30)
[2020-08-04] MEDS ORDERED: DOCUSATE 100 MG CAP PO SCH (10:45)
[2020-08-04] MEDS: MORPHINE SULFATE 4 MG/ML SYRINGE IVP PRN (10:54)
[2020-08-04 11:13] LABS: Basophils # (A) 0.06 X 10*3/uL (0.00-0.10); Basophils % (A) 0.7 %; Eosinophils # (A) 0.45 X 10*3/uL (0.04-0.35); Eosinophils % (A) 5.1 %; HCT 26.7 % (37.2-46.3); HGB 7.3 g/dL (12.0-15.0); Lymphocytes # (A) 1.16 X 10*3/uL (0.90-5.00); Lymphocytes % (A) 13.1 %; MCH 19.5 pg (27.0-32.0); MCHC 27.3 g/dL (32.0-37.0); MCV 71.2 fL (80.0-97.0); Mean Platelet Volume 9.6 fL (9.5-12.2); Monocytes # (A) 0.73 X 10*3/uL (0.20-1.00); Monocytes % (A) 8.3 %; Neutrophils # (A) 6.22 X 10*3/uL (1.80-7.70); Neutrophils % (A) 70.4 %; Platelet Count 485 X 10*3/uL (140-440); RBC 3.75 X 10*6/uL (4.10-5.20); RDW 18.8 % (11.5-14.5); WBC 8.83 X 10*3/uL (4.50-10.00)
[2020-08-04] MEDS ORDERED: MORPHINE SULFATE 4 MG/ML SYRINGE IVP PRN (12:04)
[2020-08-04 12:28] LABS: Glucose,Whole Blood 118 mg/dL (75-99)
[2020-08-04] MEDS: LEVOFLOXACIN 500MG-D5W PMX 500 MG in DEXTROSE/WATER 1 100ML.BAG IVPB SCH (13:06)
--- NOTE | 2020-08-04 14:03 | P.PN ---
Subjective Progress Note Date: 08/04/20 CHIEF COMPLAINT: History of perforated diverticulitis and parastomal hernia HISTORY OF PRESENT ILLNESS: Patient is status post exploratory laparotomy, reversal of colostomy, repair of incisional hernia and partial omentectomy for history of perforated diverticulitis and incisional hernia on 07/27/2020. Patient complains of abdominal pain after a hard stool this morning. Patient then later had 5 loose stools. She is passing gas. Denies any nausea or vomiting. But is still having abdominal discomfort. Afebrile. WBC is 8.83 hemoglobin is 7.3. She has been walking in the hallway with physical therapy. The recommending home with home care. Patient had 40 mL sanguinous fluid out her JASMINE drain Patient seen and examined with Dr Sanchez PHYSICAL EXAM: VITAL SIGNS: Reviewed. GENERAL: Well-developed in no acute distress. HEENT: No sclera icterus. Extraocular movements grossly intact. Moist buccal mucosa. Head is atraumatic, normocephalic. ABDOMEN: Soft. Nondistended. Incision site clean dry and intact JASMINE drain with sanguinous fluid NEUROLOGIC: Alert and oriented. Cranial nerves II through XII grossly intact. ASSESSMENT: 1. Perforated diverticulitis and incisional hernia status post exploratory laparotomy, reversal of colostomy, repair of incisional hernia and partial omen tectomy 2. Leukocytosis. White count has normalized PLAN: -Continue regular -Continue to work with physical therapy -Anticipating discharge home with home care tomorrow -Continue antibiotics -Encouraged patient to increase activity -Encouraged patient to use incentive spirometer -GI prophylaxis Protonix and DVT prophylaxis subcu heparin Physician Petroleum Engineering Teacher note has been reviewed by physician. Signing provider agrees with the documented findings, assessment, and plan of care. Objective - Vital Signs Vital signs: Vital Signs Temp 98.5 F 08/04/20 08:00 Pulse 82 08/04/20 08:00 Resp 18 08/04/20 08:00 BP 159/79 08/04/20 08:00 Pulse Ox 93 L 08/04/20 08:00 Intake & Output 08/03/20 08/04/20 08/04/20 18:59 06:59 18:59 Intake Total 600 Output Total 40 Balance 600 -40 Intake: Oral 600 Output: Drainage 40 Abdomen 40 Other: Voiding Method Toilet # Voids 1 # Bowel Movements 4 - Labs CBC & Chem 7: 08/04/20 06:41 08/02/20 05:52 Labs: Abnormal Lab Results - Last 24 Hours (Table) 08/03/20 08/03/20 08/04/20 Range/Units 16:56 19:50 06:41 RBC 3.75 L (4.10-5.20) X 10*6/uL Hgb 7.3 L (12.0-15.0) g/dL Hct 26.7 L (37.2-46.3) % MCV 71.2 L (80.0-97.0) fL MCH 19.5 L (27.0-32.0) pg MCHC 27.3 L (32.0-37.0) g/dL RDW 18.8 H (11.5-14.5) % Plt Count 485 H (140-440) X 10*3/uL Immature Gran # 0.21 H (0.00-0.04) X 10*3/uL Eosinophils # 0.45 H (0.04-0.35) X 10*3/uL POC Glucose (mg/dL) 133 H 129 H (75-99) mg/dL 08/04/20 Range/Units 12:26 RBC (4.10-5.20) X 10*6/uL Hgb (12.0-15.0) g/dL Hct (37.2-46.3) % MCV (80.0-97.0) fL MCH (27.0-32.0) pg MCHC (32.0-37.0) g/dL RDW (11.5-14.5) % Plt Count (140-440) X 10*3/uL Immature Gran # (0.00-0.04) X 10*3/uL Eosinophils # (0.04-0.35) X 10*3/uL POC Glucose (mg/dL) 118 H (75-99) mg/dL
--- NOTE | 2020-08-04 16:37 | PN ---
PROGRESS NOTE DATE OF SERVICE: 08/04/2020 This 65-year-old woman who was admitted after exploratory laparotomy, is complaining of some pain at this time. No chest pain. No palpitations. No fever. EXAM: On exam, alert and oriented x3. Pulse 82, blood pressure 159/70, respiration 18, temperature 98.4, oxygen saturation 98% on room air. HEENT: Conjunctivae normal. Oral mucosa moist. NECK: No jugular venous distention. No lymph node enlargement. CARDIOVASCULAR: S1, S2, muffled. No S3, no S4, RESPIRATORY: Diminished breath sounds at the bases. No rhonchi. ABDOMEN: Soft, status post surgery. LEGS: No edema, no swelling. NERVOUS SYSTEM: No focal deficits. LAB: Hemoglobin 7.3 which is rather stable. ASSESSMENT: 1. Status post exploratory laparotomy with reversal of colostomy and repair of incisional hernia as well as partial omentectomy. 2. Increased WBC. 3. Anemia, multifactorial, possibly chronic disease and macrocytic. 4. Hyponatremia, mild. 5. Continued abdominal pain. 6. History of CAD, stent. 7. History of GERD. 8. Hypertension. 9. Hyperlipidemia. 10.History of DJD. 11.History of rheumatoid arthritis history. 12.History of colostomy. 13.History of cyst with abscess. 14.History of colonic polyp. 15.History of anxiety and depression. 16.Gait dysfunction. 17.FULL CODE. RECOMMENDATIONS AND DISCUSSION: I recommend to continue current medical management and symptomatic treatment. Otherwise, at this time I recommend continued followup with Surgery, DVT prophylaxis. Further recommendations to follow. MMODL / IJN: [id number] /
[2020-08-04 17:15] LABS: Glucose,Whole Blood 119 mg/dL (75-99)
[2020-08-04 20:23] LABS: Glucose,Whole Blood 154 mg/dL (75-99)
[2020-08-04] MEDS: OXYBUTYNIN XL 5 MG TAB.ER.24 PO SCH (23:49)
[2020-08-04] MEDS: ATORVASTATIN 40 MG TAB PO SCH (23:49)
[2020-08-04] MEDS: MAGNESIUM OXIDE 400 MG TAB PO SCH (23:50)
[2020-08-05 03:00] VITALS: RESP 18
[2020-08-05 07:05] LABS: Glucose,Whole Blood 106 mg/dL (75-99)
[2020-08-05 07:44] VITALS: BP 150/78; PULSE 81; TEMP 97.8
[2020-08-05] MEDS ORDERED: PANTOPRAZOLE 40 MG TABLET PO SCH (09:00)
[2020-08-05] MEDS: INSULIN ASPART (NovoLOG) 100 UNIT/ML VIAL SQ SCH ×2 (09:06→13:21)
[2020-08-05] MEDS: atenoloL 25 MG TAB PO SCH (09:08)
[2020-08-05] MEDS: PRIMIDONE 50 MG TAB PO SCH (09:08)
[2020-08-05] MEDS: ASPIRIN 81 MG PO SCH (09:08)
[2020-08-05] MEDS: FLUoxetine HCL 20 MG CAP PO SCH (09:08)
[2020-08-05] MEDS: metFORMIN 500 MG TAB PO SCH (09:08)
[2020-08-05] MEDS: SPIRONOLACTONE 25 MG TAB PO SCH (09:08)
[2020-08-05] MEDS: HEPARIN SODIUM,PORCINE/PF 5,000 UNIT/0.5 ML SYRINGE SQ SCH (09:09)
--- NOTE | 2020-08-05 09:41 | P.DS ---
Providers Date of admission: 07/27/20 08:28 Expected date of discharge: 08/05/20 Attending physician: Butch Sanchez Consults: 07/27/20 15:42 Consult Physician Routine Consulting Provider: Matthew Shipman Consult Reason/Comments: medical management Do you want consulting provider notified?: Yes Primary care physician: [facility] Course: Discharge diagnosis 1. Perforated diverticulitis and incisional hernia status post exploratory laparotomy, reversal of colostomy, repair of incisional hernia and partial omentectomy 2. Leukocytosis. White count has normalized Hospital course This is a 64-year-old female who came into the emergency room. She was initially scheduled for outpatient endoscopy. However, she had an episode of hypotension. She received IV fluid hydration. And was able to undergo colonoscopy. The following day she went for surgery and is status post exposure laparotomy, reversal of colostomy, repair of incisional hernia and partial om entectomy for history of perforated diverticulitis and incisional hernia. Patient tolerated surgery well. Her pain is controlled. She is tolerating her full liquid diet. She is having bowel movements. She is up and ambulating. She is afebrile. Her white count has normalized. Patient is stable for discharge. Please refer to chart for any further details. Physician Septic Technician note has been reviewed by physician. Signing provider agrees with the documented findings, assessment, and plan of care. Patient Condition at Discharge: Stable Plan - Discharge Summary Discharge Rx Participant: No New Discharge Prescriptions: New HYDROcodone/APAP 5-325MG [[place] 5-325] 1 tab PO Q6HR PRN 3 Days #12 tab PRN Reason: Pain No Action Spironolactone [Aldactone] 25 mg PO DAILY rOPINIRole HCL [Requip] 0.5 mg PO HS metFORMIN HCL [Glucophage] 500 mg PO DAILY atenoloL [Atenolol] 25 mg PO DAILY Tolterodine [Detrol] 2 mg PO BID Omeprazole 20 mg PO DAILY Magnesium 500 mg PO HS Aspirin EC [Ecotrin Low Dose] 81 mg PO DAILY Melatonin 5 mg PO HS PRN PRN Reason: Insomnia FLUoxetine HCL [PROzac] 20 mg PO BID Atorvastatin [Lipitor] 40 mg PO HS hydrOXYzine HCL [Atarax] 10 mg PO BID PRN PRN Reason: Anxiety SUMAtriptan SUCCINATE [Imitrex] 25 mg PO DAILY PRN PRN Reason: Migraine Headache Acetaminophen Tab [Tylenol Tab] 1,000 mg PO Q6HR PRN PRN Reason: Pain Or Fever > 100.5 Primidone [Mysoline] 50 mg PO BID Discharge Medication List Atorvastatin [Lipitor] 40 mg PO HS 07/21/20 [History] FLUoxetine HCL [PROzac] 20 mg PO BID 07/21/20 [History] Magnesium 500 mg PO HS 07/21/20 [History] Omeprazole 20 mg PO DAILY 07/21/20 [History] SUMAtriptan SUCCINATE [Imitrex] 25 mg PO DAILY PRN 07/21/20 [History] Spironolactone [Aldactone] 25 mg PO DAILY 07/21/20 [History] Tolterodine [Detrol] 2 mg PO BID 07/21/20 [History] atenoloL [Atenolol] 25 mg PO DAILY 07/21/20 [History] hydrOXYzine HCL [Atarax] 10 mg PO BID PRN 07/21/20 [History] metFORMIN HCL [Glucophage] 500 mg PO DAILY 07/21/20 [History] rOPINIRole HCL [Requip] 0.5 mg PO HS 07/21/20 [History] Acetaminophen Tab [Tylenol Tab] 1,000 mg PO Q6HR PRN 07/26/20 [History] Aspirin EC [Ecotrin Low Dose] 81 mg PO DAILY 07/26/20 [History] Melatonin 5 mg PO HS PRN 07/26/20 [History] Primidone [Mysoline] 50 mg PO BID 07/26/20 [History] HYDROcodone/APAP 5-325MG [[place] 5-325] 1 tab PO Q6HR PRN 3 Days #12 tab 08/05/20 [Rx] Follow up Appointment(s)/Referral(s): Rudolph Quinteros MD [Primary Care Provider] - 1-2 days [facility] [NON-STAFF] - 1-2 Days Butch Sanchez MD [STAFF PHYSICIAN] - 1 Week Activity/Diet/Wound Care/Special Instructions: Medicine service to complete discharge med rec No driving while taking [place] No lifting over 10 pounds You may shower. No soaking or tub baths for 2 weeks Very light activity until you are reevaluated at your follow up appointment with your surgeon Keep a log of JASMINE drain output and bring with you to your follow-up appointment Milk/strip drains 2-3 times a day Patient is to stay on full liquid diet until seen by Dr. Sanchez in office next week Discharge Disposition: HOME WITH HOME HEALTH SERVICES
[2020-08-05 12:08] LABS: Glucose,Whole Blood 109 mg/dL (75-99)
--- NOTE | 2020-08-10 15:29 | CDI ---
Documentation Clarification Form Date: 08/10/20 From: Radha Escobar Admit Date: 07/27/2020 08:28:00 AM Patient Name: Sparkle Willoughby Visit Number: [id number] Discharge Date: 08/05/2020 01:34:00 PM ATTENTION: The Clinical Documentation Specialists (CDI) and [facility] Coding Staff appreciate your assistance in clarifying documentation. Please respond to the clarification below the line at the bottom and electronically sign. The CDI & [facility] Coding staff will review the response and follow-up if needed. Please note: Queries are made part of the Legal Health Record. If you have any questions, please contact the author of this message via ITS. Dr. Gerson Vinson, Conflicting documentation has been found in the medical record. As consulting physician, please provide clarification. Per your consult under History of Present Illness, "Which was removed showing a midline abdominal incision with johnson intact. The ulceration is well approximated with no drainage noted. At this time patient has no open ulcerations". 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 Admitted for reversal of colostomy and repair of incisional hernia. Prevnar wound vac placed. 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 Treatment: wound vac Please clarify which the most appropriate verbage: Is the word ulceration a dragon typo? Should have the word have been "surgical incision"? Is disruption of external operation (surgical) wound, not elsewhere classified, initial encounter a dragon typo? Please specify further. If ulceration is correct, please specify underlying cause and location. Other (please specify) Unable to determine It should read nonhealing surgical incision or surgical wound. EMELID
== END 2020-08-05 13:34 | disposition home health service (06) | DRG 330 ==
LOC: EC 13:50 → 6NMEDSUR 14:16 → OBSVTOIN 07-27 08:28 → 6NMEDSUR 08-04 01:17
PROVIDERS: ADMIT Surgery; ATTEND Surgery
PROC: 0DJD8ZZ Inspection of Lower Intestinal Tract, Via Natural or Artificial Opening Endoscopic (ICD-10-PCS; 2020-07-26 10:30)
PROC: 0DBU0ZZ Excision of Omentum, Open Approach (ICD-10-PCS; principal; 2020-07-27 10:00)
PROC: 0DJD8ZZ Inspection of Lower Intestinal Tract, Via Natural or Artificial Opening Endoscopic (ICD-10-PCS; principal; 2020-07-27 10:00)
PROC: 0YQ60ZZ Repair Left Inguinal Region, Open Approach (ICD-10-PCS; principal; 2020-07-27 10:00)
PROC: 0DBL0ZZ Excision of Transverse Colon, Open Approach (ICD-10-PCS; principal; 2020-07-27 10:00)
DX: Z43.3 Encounter for attention to colostomy (principal); K57.80 Diverticulitis of intestine, part unspecified, with perforation and abscess without bleeding; E87.1 Hypo-osmolality and hyponatremia; T81.89XA Other complications of procedures, not elsewhere classified, initial encounter; I95.9 Hypotension, unspecified; M06.9 Rheumatoid arthritis, unspecified; Z20.822 Contact with and (suspected) exposure to COVID-19; D50.9 Iron deficiency anemia, unspecified; I10 Essential (primary) hypertension; E78.5 Hyperlipidemia, unspecified; I25.10 Atherosclerotic heart disease of native coronary artery without angina pectoris; K21.9 Gastro-esophageal reflux disease without esophagitis; G25.81 Restless legs syndrome; D53.9 Nutritional anemia, unspecified; K63.5 Polyp of colon; F32.9 Major depressive disorder, single episode, unspecified; F41.9 Anxiety disorder, unspecified; R26.9 Unspecified abnormalities of gait and mobility; R32 Unspecified urinary incontinence; M19.90 Unspecified osteoarthritis, unspecified site; Z79.84 Long term (current) use of oral hypoglycemic drugs; Z79.82 Long term (current) use of aspirin; Z79.899 Other long term (current) drug therapy; Z86.19 Personal history of other infectious and parasitic diseases; Z87.19 Personal history of other diseases of the digestive system; Z87.442 Personal history of urinary calculi; Z86.69 Personal history of other diseases of the nervous system and sense organs; Z90.49 Acquired absence of other specified parts of digestive tract; Z95.5 Presence of coronary angioplasty implant and graft; Z63.8 Other specified problems related to primary support group; Z98.890 Other specified postprocedural states; Z88.5 Allergy status to narcotic agent; Z88.0 Allergy status to penicillin; Z91.041 Radiographic dye allergy status
CPT/HCPCS: 44389; 45378; 80048; 80053; 81001; 85025; 85610; 85730; 86850; 86900; 86901; 87635; 88302; 88307; 94760; 99285

== ENCOUNTER 2020-08-20 11:45 | Inpatient (IN) | payer MEDICARE, OTHER ==
--- NOTE | 2020-08-20 12:27 | ED ---
General Adult HPI - General Chief complaint: Abdominal Pain Stated complaint: Abd pain Time Seen by Provider: 08/20/20 11:54 Source: patient, EMS, RN notes reviewed, old records reviewed (Reviewed available reports from [facility]) Mode of arrival: EMS Limitations: no limitations - History of Present Illness Initial comments: Patient is a pleasant 65-year-old female presenting to the emergency department with diarrhea and abdominal discomfort. Patient did have ostomy reversal and hernia repair done around 3 weeks ago. Diarrhea started around 1 week ago. Patient is having episodes of diarrhea up to 8 times daily. Patient is having some abdominal discomfort, mild at this time. Patient did go to [facility] and had CT scans done. Computed tomography scan was concerning for subcutaneous fluid collection. - Related Data Home Medications Medication Instructions Recorded Confirmed Atorvastatin [Lipitor] 40 mg PO HS 07/21/20 07/26/20 FLUoxetine HCL [PROzac] 20 mg PO BID 07/21/20 07/26/20 Magnesium 500 mg PO HS 07/21/20 07/26/20 SUMAtriptan SUCCINATE [Imitrex] 25 mg PO DAILY PRN 07/21/20 07/26/20 Spironolactone [Aldactone] 25 mg PO DAILY 07/21/20 07/26/20 Tolterodine [Detrol] 2 mg PO BID 07/21/20 07/26/20 atenoloL [Atenolol] 25 mg PO DAILY 07/21/20 07/26/20 hydrOXYzine HCL [Atarax] 10 mg PO BID PRN 07/21/20 07/26/20 metFORMIN HCL [Glucophage] 500 mg PO DAILY 07/21/20 07/26/20 rOPINIRole HCL [Requip] 0.5 mg PO HS 07/21/20 07/26/20 Acetaminophen Tab [Tylenol] 1,000 mg PO Q6HR PRN 07/26/20 07/26/20 Aspirin EC [Ecotrin Low Dose] 81 mg PO DAILY 07/26/20 07/26/20 Melatonin 5 mg PO HS PRN 07/26/20 07/26/20 Primidone [Mysoline] 50 mg PO BID 07/26/20 07/26/20 Previous Rx's Medication Instructions Recorded Benzocaine/Menthol Lozeng [Cepacol 1 each MUCOUS MEM Q1HR PRN lozenge 08/05/20 lozenge] HYDROcodone/APAP 5-325MG [[place] 1 tab PO Q6HR PRN 3 Days #12 tab 08/05/20 5-325] INSULIN ASPART (NovoLOG) [NovoLOG 0 unit SQ ACHS vial 08/05/20 (formulary)] Pantoprazole [Protonix] 40 mg PO DAILY tablet. 08/05/20 Allergies Allergy/AdvReac Type Severity Reaction Status Date / Time amoxicillin Allergy Rash/Hives Verified 08/20/20 11:47 hydromorphone [From Dilaudid] Allergy Rash/Hives Verified 08/20/20 11:47 Iodinated Contrast Media Allergy Rash/Hives Verified 08/20/20 11:47 Review of Systems ROS Statement: Those systems with pertinent positive or pertinent negative responses have been documented in the HPI. ROS Other: All systems not noted in ROS Statement are negative. Constitutional: Denies: fever Eyes: Denies: eye pain ENT: Denies: ear pain Respiratory: Denies: cough Cardiovascular: Denies: chest pain Endocrine: Denies: fatigue Gastrointestinal: Reports: as per HPI, abdominal pain, diarrhea. Denies: vomiting Genitourinary: Denies: dysuria Musculoskeletal: Denies: back pain Skin: Denies: rash Neurological: Denies: weakness Past Medical History Past Medical History: Coronary Artery Disease (CAD), GERD/Reflux, Hyperlipidemia, Hypertension, Osteoarthritis (OA), Rheumatoid Arthritis (RA) Additional Past Medical History / Comment(s): colostomy, hx of fistula with abscess, sx at [facility], hx of colon polyps, hx of kidney stones, incisional hernia, restless leg, states on metformin for weight loss, not diabetes, hx of urinary incontinence, hx migraines History of Any Multi-Drug Resistant Organisms: None Reported Past Surgical History: Heart Catheterization With Stent Additional Past Surgical History / Comment(s): colostomy 08/2018, ostomy reversal in 08/14 @ [facility], 2 cardiac stents, lithotripsy Past Anesthesia/Blood Transfusion Reactions: Previous Problems w/ Anesthesia Additional Past Anesthesia/Blood Transfusion Reaction / Comment(s): trouble waking up in past Date of Last Stent Placement:: 2008? Past Psychological History: Anxiety, Depression Smoking Status: Never smoker Past Alcohol Use History: None Reported Past Drug Use History: None Reported - Past Family History Mother Family Medical History: No Reported History General Exam Limitations: no limitations General appearance: alert Head exam: Present: normocephalic Eye exam: Present: normal appearance Neck exam: Present: normal inspection Respiratory exam: Present: normal lung sounds bilaterally Cardiovascular Exam: Present: regular rate, normal rhythm Expanded Peripheral pulses: 2+: Posterior Tibialis (R), Posterior Tibialis (L) GI/Abdominal exam: Present: soft. Absent: tenderness Extremities exam: Present: normal inspection Neurological exam: Present: alert Psychiatric exam: Present: normal affect, normal mood Skin exam: Present: normal color Course Vital Signs 08/20/20 11:48 Temperature 99 F Pulse Rate 85 Respiratory 18 Rate Blood Pressure 145/73 O2 Sat by Pulse 97 Oximetry Medical Decision Making - Medical Decision Making Patient updated on plan. Case was discussed with Dr. Griffiths covering for Dr. Sanchez who will consult and requests medical admission. Case also discussed with Dr. Bhatt, who will consult covering for city call. Disposition Clinical Impression: Diarrhea, Abdominal fluid collection Disposition: ADMITTED IP TO THIS HOSP Is patient prescribed a controlled substance at d/c from ED?: No Referrals: Rudolph Quinteros MD [Primary Care Provider] - 1-2 days Decision Time: 12:58
[2020-08-20] MEDS ORDERED: NALOXONE 0.4 MG/ML 1 ML VIAL IV PRN (13:02)
--- NOTE | 2020-08-20 13:40 | P.HPIM ---
History of Present Illness H&P Date: 08/20/20 Chief Complaint: Diarrhea 65 year old woman with history of RA, DM, HTN, HLD, recent ventral hernia repair presented for diarrhea. Patient has been complaining of diarrhea since shortly after her previous hernia repair. It has gotten worse the last week, with up to 8 all movements of completely watery stools per day. She says the stool is orange in color and she is not sure if that contains blood or not. She has some abdominal pain in the left lower quadrant which can sometimes precede the bowel movement. She denies fevers, chills, nausea, vomiting, chest pain, palpitations, syncope, presyncope, dysuria, numbness/weakness. Based on her symptoms, she presented to the emergency room in [facility]. While she was there, she underwent lab work and imaging. Her CBC, chemistries, LFTs were unremarkable. Her lactate was 2.4, and trended down to 1.4 with flu id. Her EKG was normal sinus rhythm. Her computed tomography scan of the abdomen/pelvis showed an 11 cm fluid collection in the pelvis as well as postsurgical changes of the ventral hernia repair. Patient was transferred to [facility] and oriented to be reevaluated by her surgeon Dr. Sanchez. Patient will be admitted to medicine with surgical consultation regarding fluid collection. Review of Systems All Systems reviewed and pertinent positives and negatives noted in HPI, all other symptoms are negative Past Medical History Past Medical History: Coronary Artery Disease (CAD), GERD/Reflux, Hyperlipidemia, Hypertension, Osteoarthritis (OA), Rheumatoid Arthritis (RA) Additional Past Medical History / Comment(s): colostomy, hx of fistula with abscess, sx at [facility], hx of colon polyps, hx of kidney stones, incisional hernia, restless leg, states on metformin for weight loss, not diabetes, hx of urinary incontinence, hx migraines History of Any Multi-Drug Resistant Organisms: None Reported Past Surgical History: Heart Catheterization With Stent Additional Past Surgical History / Comment(s): colostomy 08/2018, ostomy reversal in 08/14 @ [facility], 2 cardiac stents, lithotripsy Past Anesthesia/Blood Transfusion Reactions: Previous Problems w/ Anesthesia Additional Past Anesthesia/Blood Transfusion Reaction / Comment(s): trouble waking up in past Date of Last Stent Placement:: 2008? Past Psychological History: Anxiety, Depression Smoking Status: Never smoker Past Alcohol Use History: None Reported Past Drug Use History: None Reported - Past Family History Mother Family Medical History: No Reported History Medications and Allergies Home Medications Medication Instructions Recorded Confirmed Type Atorvastatin [Lipitor] 40 mg PO HS 07/21/20 07/26/20 History FLUoxetine HCL [PROzac] 20 mg PO BID 07/21/20 07/26/20 History Magnesium 500 mg PO HS 07/21/20 07/26/20 History SUMAtriptan SUCCINATE [Imitrex] 25 mg PO DAILY PRN 07/21/20 07/26/20 History Spironolactone [Aldactone] 25 mg PO DAILY 07/21/20 07/26/20 History Tolterodine [Detrol] 2 mg PO BID 07/21/20 07/26/20 History atenoloL [Atenolol] 25 mg PO DAILY 07/21/20 07/26/20 History hydrOXYzine HCL [Atarax] 10 mg PO BID PRN 07/21/20 07/26/20 History metFORMIN HCL [Glucophage] 500 mg PO DAILY 07/21/20 07/26/20 History rOPINIRole HCL [Requip] 0.5 mg PO HS 07/21/20 07/26/20 History Acetaminophen Tab [Tylenol] 1,000 mg PO Q6HR PRN 07/26/20 07/26/20 History Aspirin EC [Ecotrin Low Dose] 81 mg PO DAILY 07/26/20 07/26/20 History Melatonin 5 mg PO HS PRN 07/26/20 07/26/20 History Primidone [Mysoline] 50 mg PO BID 07/26/20 07/26/20 History Benzocaine/Menthol Lozeng [Cepacol 1 each MUCOUS MEM Q1HR PRN lozenge 08/05/20 Rx lozenge] HYDROcodone/APAP 5-325MG [[place] 1 tab PO Q6HR PRN 3 Days #12 tab 08/05/20 Rx 5-325] INSULIN ASPART (NovoLOG) [NovoLOG 0 unit SQ ACHS vial 08/05/20 Rx (formulary)] Pantoprazole [Protonix] 40 mg PO DAILY tablet. 08/05/20 Rx Allergies Allergy/AdvReac Type Severity Reaction Status Date / Time amoxicillin Allergy Rash/Hives Verified 08/20/20 11:47 hydromorphone [From Dilaudid] Allergy Rash/Hives Verified 08/20/20 11:47 Iodinated Contrast Media Allergy Rash/Hives Verified 08/20/20 11:47 Physical Exam Osteopathic Statement: *. No significant issues noted on an osteopathic structural exam other than those noted in the History and Physical/Consult. Vitals: Vital Signs Temp Pulse Resp BP Pulse Ox 08/20/20 11:48 99 F 85 18 145/73 97 Intake and Output 08/19/20 08/20/20 08/20/20 22:59 06:59 14:59 Other: Weight 74.389 kg Gen: awake, alert HEENT: normocephalic, atraumatic, good hearing acuity, moist mucous membranes Resp: good air exchange, breathing comfortably with no accessory muscle use CVS: good distal perfusion x 4, GI: soft, ND, abdominal binder present, surgical scar without johnson, which is well-healing, tenderness in left lower quadrant : no SPT, no CVAT, prado catheter not present MSK: no pitting edema, no clubbing Neuro: non-focal, moving all extremities Psych: cooperative, euthymic mood Assessment and Plan Assessment: Fluid collection in the abdomen: Abscess versus phlegmon Status post ventral hernia repair Diarrhea -Admit to telemetry -Surgery consult -Levofloxacin every 24 hours -Pro calcitonin -IV fluids -Pain control -C. diff, stool culture CAD Hypertension Hyperlipidemia Diabetes type 2 Rheumatoid arthritis -Home medications require verification prior to reconciliation -Q before meals/at bedtime Accu-Cheks -Low-dose sliding scale insulin Heparin 3 times a day for DVT prophylaxis Patient is full code
[2020-08-20] MEDS: LEVOFLOXACIN 750MG-D5W PMX 750 MG in DEXTROSE/WATER 1 150ML.BAG IVPB SCH (13:46)
[2020-08-20] MEDS: SODIUM CHLORIDE 0.9% 1,000 ML IV SCH (13:46)
--- NOTE | 2020-08-20 14:46 | P.GSCN ---
History of Present Illness Consult date: 08/20/20 History of present illness: Patient transferred from another hospital due to large abdominal post surgical seroma with generalized abdominal pain from yesterday that was persistent and moderate to severe. She has seen Dr. Sanchez over 1 week ago when her JASMINE drain was removed from her ventral hernia repair. No fevers, chills, or leukocytosis. She has an abdominal binder. Per discussion with ER provider, large over 10 cm fluid collection present. Recommend interventional radiology drainage with drain placement Antibiotics for coverage Abdominal binder advised Past Medical History Past Medical History: Coronary Artery Disease (CAD), GERD/Reflux, Hyperlipidemia, Hypertension, Osteoarthritis (OA), Rheumatoid Arthritis (RA) Additional Past Medical History / Comment(s): colostomy, hx of fistula with abscess, sx at [facility], hx of colon polyps, hx of kidney stones, incisional hernia, restless leg, states on metformin for weight loss, not diabetes, hx of urinary incontinence, hx migraines History of Any Multi-Drug Resistant Organisms: None Reported Past Surgical History: Heart Catheterization With Stent Additional Past Surgical History / Comment(s): colostomy 08/2018, ostomy reversal in 08/14 @ [facility], 2 cardiac stents, lithotripsy. Past Anesthesia/Blood Transfusion Reactions: Previous Problems w/ Anesthesia Additional Past Anesthesia/Blood Transfusion Reaction / Comm: trouble waking up in past Date of Last Stent Placement:: 2008 Past Psychological History: Anxiety, Depression Smoking Status: Never smoker Past Alcohol Use History: None Reported Past Drug Use History: None Reported - Past Family History Mother Family Medical History: No Reported History Medications and Allergies Home Medications Medication Instructions Recorded Confirmed Type Atorvastatin [Lipitor] 40 mg PO HS 07/21/20 08/20/20 History FLUoxetine HCL [PROzac] 20 mg PO BID 07/21/20 08/20/20 History Magnesium 500 mg PO HS 07/21/20 08/20/20 History SUMAtriptan SUCCINATE [Imitrex] 25 mg PO DAILY PRN 07/21/20 08/20/20 History Spironolactone [Aldactone] 25 mg PO DAILY 07/21/20 08/20/20 History Tolterodine [Detrol] 2 mg PO BID 07/21/20 08/20/20 History atenoloL [Atenolol] 25 mg PO DAILY 07/21/20 08/20/20 History hydrOXYzine HCL [Atarax] 10 mg PO BID PRN 07/21/20 08/20/20 History metFORMIN HCL [Glucophage] 500 mg PO DAILY 07/21/20 08/20/20 History rOPINIRole HCL [Requip] 0.5 mg PO HS 07/21/20 08/20/20 History Acetaminophen Tab [Tylenol] 1,000 mg PO Q6HR PRN 07/26/20 08/20/20 History Aspirin EC [Ecotrin Low Dose] 81 mg PO DAILY 07/26/20 08/20/20 History Melatonin 5 mg PO HS PRN 07/26/20 08/20/20 History Primidone [Mysoline] 50 mg PO BID 07/26/20 08/20/20 History HYDROcodone/APAP 5-325MG [[place] 1 tab PO Q6HR PRN 3 Days #12 tab 08/05/20 08/20/20 Rx 5-325] Omeprazole 20 mg PO DAILY 08/20/20 08/20/20 History Ondansetron [Zofran] 4 mg PO TID PRN 08/20/20 08/20/20 History Allergies Allergy/AdvReac Type Severity Reaction Status Date / Time amoxicillin Allergy Rash/Hives Verified 08/20/20 13:48 hydromorphone [From Dilaudid] Allergy Rash/Hives Verified 08/20/20 13:48 Iodinated Contrast Media Allergy Rash/Hives Verified 08/20/20 13:48 Surgical - Exam Vital Signs Temp Pulse Resp BP Pulse Ox 99 F 85 18 145/73 97 08/20/20 11:48 08/20/20 11:48 08/20/20 11:48 08/20/20 11:48 08/20/20 11:48
[2020-08-20] MEDS: MORPHINE SULFATE 4 MG/ML SYRINGE IV PRN (16:20)
[2020-08-20] MEDS: HEPARIN SODIUM,PORCINE/PF 5,000 UNIT/0.5 ML SYRINGE SQ SCH (16:22)
[2020-08-20] MEDS: INSULIN ASPART (NovoLOG) 100 UNIT/ML VIAL SQ SCH (16:42)
[2020-08-20 16:43] LABS: Glucose,Whole Blood 87 mg/dL (75-99)
[2020-08-20] MEDS ORDERED: ENALAPRILAT 1.25 MG/ML 1 ML VIAL IVP PRN (18:26)
[2020-08-20] MEDS: ACETAMINOPHEN TAB 325 MG TAB PO PRN (19:55)
[2020-08-20 21:06] LABS: Glucose,Whole Blood 86 mg/dL (75-99)
[2020-08-21] MEDS: SODIUM CHLORIDE 0.9% 1,000 ML IV SCH ×5 (00:11→21:57)
[2020-08-21] MEDS: MORPHINE SULFATE 4 MG/ML SYRINGE IV PRN ×4 (00:12→17:17)
[2020-08-21] MEDS: HEPARIN SODIUM,PORCINE/PF 5,000 UNIT/0.5 ML SYRINGE SQ SCH ×3 (02:09→17:16)
[2020-08-21] MEDS: ACETAMINOPHEN TAB 325 MG TAB PO PRN (05:48)
[2020-08-21 07:01] LABS: Glucose,Whole Blood 93 mg/dL (75-99)
[2020-08-21] MEDS: INSULIN ASPART (NovoLOG) 100 UNIT/ML VIAL SQ SCH ×3 (07:53→17:17)
[2020-08-21] MEDS ORDERED: PANTOPRAZOLE 40 MG/10 ML VIAL IV SCH (09:00)
[2020-08-21 09:26] LABS: Basophils # (A) 0.03 X 10*3/uL (0.00-0.10); Basophils % (A) 0.6 %; Eosinophils # (A) 0.61 X 10*3/uL (0.04-0.35); Eosinophils % (A) 11.8 %; HGB 7.7 g/dL (12.0-15.0); Lymphocytes # (A) 1.05 X 10*3/uL (0.90-5.00); Lymphocytes % (A) 20.3 %; MCH 19.3 pg (27.0-32.0); MCHC 26.6 g/dL (32.0-37.0); MCV 72.9 fL (80.0-97.0); Mean Platelet Volume 9.6 fL (9.5-12.2); Monocytes # (A) 0.44 X 10*3/uL (0.20-1.00); Monocytes % (A) 8.5 %; Neutrophils # (A) 3.02 X 10*3/uL (1.80-7.70); Neutrophils % (A) 58.4 %; Platelet Count 454 X 10*3/uL (140-440); RBC 3.98 X 10*6/uL (4.10-5.20); RDW 18.7 % (11.5-14.5); WBC 5.17 X 10*3/uL (4.50-10.00)
[2020-08-21] MEDS ORDERED: ONDANSETRON 4 MG TAB PO PRN (10:36)
[2020-08-21] MEDS ORDERED: hydrOXYzine HCL 10 MG TAB PO PRN (10:36)
[2020-08-21] MEDS ORDERED: ACETAMINOPHEN TAB 500 MG TAB PO PRN (10:36)
[2020-08-21] MEDS ORDERED: SUMAtriptan succinate 25 MG TAB PO PRN (10:36)
[2020-08-21] MEDS ORDERED: MELATONIN 5 MG TABLET PO PRN (10:36)
--- NOTE | 2020-08-21 10:39 | P.PN ---
Subjective Progress Note Date: 08/21/20 Pt reporting OLSON this morning. Surgery recommended IR consultation for drainage. Objective - Vital Signs Vital signs: Vital Signs Temp 97.7 F 08/21/20 07:33 Pulse 76 08/21/20 07:33 Resp 18 08/21/20 07:33 BP 139/74 08/21/20 07:33 Pulse Ox 99 08/21/20 07:33 Intake & Output 08/20/20 08/21/20 08/21/20 18:59 06:59 18:59 Intake Total 600 1025 Balance 600 1025 Weight 74.389 kg Intake: Intake, IV Titration 1000 Amount Sodium Chloride 0.9% 1, 1000 000 ml @ 150 mls/hr IV . Q6H40M [facility] Rx#:[id number] Oral 600 25 Other: # Voids 4 4 - Exam Gen: awake, alert HEENT: normocephalic, atraumatic, good hearing acuity, moist mucous membranes Resp: good air exchange, breathing comfortably with no accessory muscle use CVS: good distal perfusion x 4, GI: soft, ND, abdominal binder present, tenderness to palpation the left lower quadrant : no SPT, no CVAT, prado catheter not present MSK: no pitting edema, no clubbing Neuro: non-focal, moving all extremities Psych: cooperative, euthymic mood - Labs CBC & Chem 7: 08/21/20 06:18 Labs: Abnormal Lab Results - Last 24 Hours (Table) 08/21/20 Range/Units 06:18 RBC 3.98 L (4.10-5.20) X 10*6/uL Hgb 7.7 L (12.0-15.0) g/dL Hct 29.0 L (37.2-46.3) % MCV 72.9 L (80.0-97.0) fL MCH 19.3 L (27.0-32.0) pg MCHC 26.6 L (32.0-37.0) g/dL RDW 18.7 H (11.5-14.5) % Plt Count 454 H (140-440) X 10*3/uL Eosinophils # 0.61 H (0.04-0.35) X 10*3/uL Assessment and Plan Assessment: Fluid collection in the abdomen: Abscess versus phlegmon Status post ventral hernia repair Diarrhea -Admit to telemetry -Surgery consult -IR consult for drainage of fluid collection -Levofloxacin every 24 hours -Pro calcitonin = 0.07; unlikely to be infected fluid collection -IV fluids -Pain control -C. diff negative -stool culture pending -tylenol + norco PRN Headache -resume home sumatriptan PRN -tylenol + norco PRN -likely medication related headache CAD Hypertension Hyperlipidemia Diabetes type 2 Rheumatoid arthritis -Home meds reviewed and reconciled -Q before meals/at bedtime Accu-Cheks -Low-dose sliding scale insulin Heparin 3 times a day for DVT prophylaxis Patient is full code
[2020-08-21 11:25] LABS: African American GFR (CKD) 104.6 (60.0-200.0); Anion Gap 3.9 mmol/L (4.00-12.00); Calcium 8.6 mg/dL (8.7-10.3); Carbon Dioxide 28.1 mmol/L (21.6-31.8); Magnesium 1.8 mg/dL (1.5-2.4); Non-African American GFR(CKD) 90.3 (60.0-200.0); Potassium 4.6 mmol/L (3.5-5.5)
[2020-08-21 11:49] LABS: Glucose,Whole Blood 87 mg/dL (75-99)
--- NOTE | 2020-08-21 13:32 | P.PN ---
Subjective Progress Note Date: 08/21/20 She reports hunger. Her prior diarrhea has resolved. She reports eating primarily ice cream and milk products at the time of her diarrhea. No further reports of moderate abdominal pain ABDOMEN: Binder present. No peritonitis ASSESSMENT: 1. Seroma, post-operative PLAN: 1. Regular diet, lactose free 2. Consult interventional radiology for drainage of fluid collection and placement of drain. Objective - Vital Signs Vital signs: Vital Signs Temp 97.7 F 08/21/20 07:33 Pulse 76 08/21/20 07:33 Resp 18 08/21/20 07:33 BP 139/74 08/21/20 07:33 Pulse Ox 99 08/21/20 07:33 Intake & Output 08/20/20 08/21/20 08/21/20 18:59 06:59 18:59 Intake Total 600 1025 Balance 600 1025 Weight 74.389 kg Intake: Intake, IV Titration 1000 Amount Sodium Chloride 0.9% 1, 1000 000 ml @ 150 mls/hr IV . Q6H40M [facility] Rx#:[id number] Oral 600 25 Other: # Voids 4 4 - Labs CBC & Chem 7: 08/21/20 06:18 08/21/20 06:18 Labs: Abnormal Lab Results - Last 24 Hours (Table) 08/21/20 08/21/20 Range/Units 06:18 06:18 RBC 3.98 L (4.10-5.20) X 10*6/uL Hgb 7.7 L (12.0-15.0) g/dL Hct 29.0 L (37.2-46.3) % MCV 72.9 L (80.0-97.0) fL MCH 19.3 L (27.0-32.0) pg MCHC 26.6 L (32.0-37.0) g/dL RDW 18.7 H (11.5-14.5) % Plt Count 454 H (140-440) X 10*3/uL Eosinophils # 0.61 H (0.04-0.35) X 10*3/uL Chloride 111 H (96-109) mmol/L Anion Gap 3.90 L (4.00-12.00) mmol/L BUN 7.0 L (9.0-27.0) mg/dL BUN/Creatinine Ratio 10.00 L (12.00-20.00) Ratio Calcium 8.6 L (8.7-10.3) mg/dL
[2020-08-21] MEDS: LEVOFLOXACIN 750MG-D5W PMX 750 MG in DEXTROSE/WATER 1 150ML.BAG IVPB SCH (14:39)
[2020-08-21 16:45] LABS: Glucose,Whole Blood 141 mg/dL (75-99)
[2020-08-21] MEDS: FLUoxetine HCL 20 MG CAP PO SCH (21:27)
[2020-08-21] MEDS: MAGNESIUM OXIDE 400 MG TAB PO SCH (21:27)
[2020-08-21] MEDS: PRIMIDONE 50 MG TAB PO SCH (21:27)
[2020-08-21] MEDS: ATORVASTATIN 40 MG TAB PO SCH (21:27)
[2020-08-21] MEDS: HYDROcodone/APAP 5-325MG 1 EACH TAB PO PRN (21:58)
[2020-08-21 22:12] LABS: Glucose,Whole Blood 100 mg/dL (75-99)
[2020-08-22] MEDS: HEPARIN SODIUM,PORCINE/PF 5,000 UNIT/0.5 ML SYRINGE SQ SCH ×4 (00:02→20:49)
[2020-08-22] MEDS: HYDROcodone/APAP 5-325MG 1 EACH TAB PO PRN ×2 (04:35→16:43)
[2020-08-22] MEDS: SODIUM CHLORIDE 0.9% 1,000 ML IV SCH ×3 (06:07→21:01)
[2020-08-22 07:12] LABS: Glucose,Whole Blood 102 mg/dL (75-99)
--- NOTE | 2020-08-22 11:05 | P.PN ---
Subjective Progress Note Date: 08/22/20 CHIEF COMPLAINT: Diarrhea HISTORY OF PRESENT ILLNESS: Surgical service is following in regards to patient 's postoperative seroma. She remains on IV antibiotics. I she is scheduled to have CT-guided drainage of seroma today by interventional radiology. Her diarrhea has resolved. She does report abdominal pain mid abdominal incision. Controlled with pain medication. Denies any nausea or vomiting. Afebrile. PHYSICAL EXAM: VITAL SIGNS: Reviewed GENERAL: Well-developed in no acute distress. HEENT: No sclera icterus. Extraocular movements grossly intact. Moist buccal mucosa. Head is atraumatic, normocephalic. Hears conversational speech. No nasal drainage. NECK: Supple without lymphadenopathy. CHEST: Non-labored respirations and equal bilateral excursions. CARDIOVASCULAR: Palpable 2+ radial pulses. ABDOMEN: Soft. Nondistended. Nontender. MUSCULOSKELETAL: No clubbing or cyanosis. NEUROLOGIC: No focal or lateralizing signs. Cranial nerves II through XII grossly intact. PSYCH: Appropriate affect. Alert and oriented to person, place and time. SKIN: Well perfused. Good skin turgor. ASSESSMENT: 1. Postoperative seroma 2. History of perforated diverticulitis and incisional hernia status post exploratory laparotomy, reversal of colostomy, repair of incisional hernia and partial omentectomy on 07/27/[address] Sanchez PLAN: - continue Regular diet, lactose free - Patient scheduled to have CT guided drainage of fluid collection with placement of drain by interventional radiology - Continue antibiotics Physician Tub Tender note has been reviewed by physician. Signing provider agrees with the documented findings, assessment, and plan of care. Objective - Vital Signs Vital signs: Vital Signs Temp 98.2 F 08/22/20 08:10 Pulse 86 08/22/20 08:10 Resp 15 08/22/20 08:10 BP 158/77 08/22/20 08:10 Pulse Ox 96 08/22/20 08:10 Intake & Output 08/21/20 08/22/20 08/22/20 18:59 06:59 18:59 Intake Total 2430 Balance 2430 Intake: Intake, IV Titration 1950 Amount Levofloxacin 750Mg-D5w 150 Pmx 750 mg In Dextrose/ Water 1 150ml.bag @ 100 mls/hr IVPB Q24H [facility] Rx#: [id number] Sodium Chloride 0.9% 1, 1800 000 ml @ 150 mls/hr IV . Q6H40M [facility] Rx#:[id number] Oral 480 Other: Voiding Method Toilet # Voids 5 3 - Labs CBC & Chem 7: 08/21/20 06:18 08/21/20 06:18 Labs: Abnormal Lab Results - Last 24 Hours (Table) 08/21/20 08/21/20 08/21/20 Range/Units 06:18 16:42 22:11 Chloride 111 H (96-109) mmol/L Anion Gap 3.90 L (4.00-12.00) mmol/L BUN 7.0 L (9.0-27.0) mg/dL BUN/Creatinine Ratio 10.00 L (12.00-20.00) Ratio POC Glucose (mg/dL) 141 H 100 H (75-99) mg/dL Calcium 8.6 L (8.7-10.3) mg/dL 08/22/20 Range/Units 07:11 Chloride (96-109) mmol/L Anion Gap (4.00-12.00) mmol/L BUN (9.0-27.0) mg/dL BUN/Creatinine Ratio (12.00-20.00) Ratio POC Glucose (mg/dL) 102 H (75-99) mg/dL Calcium (8.7-10.3) mg/dL Microbiology - Last 24 Hours (Table) 08/20/20 13:45 Blood Culture - Preliminary Blood No Growth after 24 hours
[2020-08-22 11:29] LABS: Glucose,Whole Blood 102 mg/dL (75-99)
[2020-08-22 11:55] LABS: Prothrombin Time 10.6 sec (9.0-12.0)
[2020-08-22] MEDS: INSULIN ASPART (NovoLOG) 100 UNIT/ML VIAL SQ SCH ×3 (12:07→17:40)
[2020-08-22] MEDS: PANTOPRAZOLE 40 MG TABLET PO SCH (13:04)
[2020-08-22] MEDS: atenoloL 25 MG TAB PO SCH (13:04)
[2020-08-22] MEDS: SPIRONOLACTONE 25 MG TAB PO SCH (13:04)
--- NOTE | 2020-08-22 13:13 | P.PN ---
Subjective Progress Note Date: 08/22/20 No new complaints. Pending placement of drain by IR today. Objective - Vital Signs Vital signs: Vital Signs Temp 98.2 F 08/22/20 08:10 Pulse 86 08/22/20 08:10 Resp 15 08/22/20 08:10 BP 158/77 08/22/20 08:10 Pulse Ox 96 08/22/20 08:10 Intake & Output 08/21/20 08/22/20 08/22/20 18:59 06:59 18:59 Intake Total 2430 Balance 2430 Intake: Intake, IV Titration 1950 Amount Levofloxacin 750Mg-D5w 150 Pmx 750 mg In Dextrose/ Water 1 150ml.bag @ 100 mls/hr IVPB Q24H [facility] Rx#: [id number] Sodium Chloride 0.9% 1, 1800 000 ml @ 150 mls/hr IV . Q6H40M [facility] Rx#:[id number] Oral 480 Other: Voiding Method Toilet # Voids 5 3 - Exam Gen: awake, alert HEENT: normocephalic, atraumatic, good hearing acuity, moist mucous membranes Resp: good air exchange, breathing comfortably with no accessory muscle use CVS: good distal perfusion x 4, GI: soft, ND, abdominal binder present, tenderness to palpation the left lower quadrant : no SPT, no CVAT, prado catheter not present MSK: no pitting edema, no clubbing Neuro: non-focal, moving all extremities Psych: cooperative, euthymic mood - Labs CBC & Chem 7: 08/21/20 06:18 08/21/20 06:18 Labs: Abnormal Lab Results - Last 24 Hours (Table) 08/21/20 08/21/20 08/22/20 Range/Units 16:42 22:11 07:11 POC Glucose (mg/dL) 141 H 100 H 102 H (75-99) mg/dL 08/22/20 Range/Units 11:14 POC Glucose (mg/dL) 102 H (75-99) mg/dL Microbiology - Last 24 Hours (Table) 08/20/20 13:45 Blood Culture - Preliminary Blood No Growth after 24 hours Assessment and Plan Assessment: Fluid collection in the abdomen: Abscess versus phlegmon Status post ventral hernia repair Diarrhea -Admit to telemetry -Surgery consult -IR consult for drainage of fluid collection -Levofloxacin every 24 hours -Pro calcitonin = 0.07; unlikely to be infected fluid collection -IV fluids -Pain control -C. diff negative -stool culture pending -tylenol + norco PRN Headache -resume home sumatriptan PRN -tylenol + norco PRN -likely medication related headache CAD Hypertension Hyperlipidemia Diabetes type 2 Rheumatoid arthritis -Home meds reviewed and reconciled -Q before meals/at bedtime Accu-Cheks -Low-dose sliding scale insulin Heparin 3 times a day for DVT prophylaxis Patient is full code
[2020-08-22] MEDS: MORPHINE SULFATE 4 MG/ML SYRINGE IV PRN (14:33)
--- NOTE | 2020-08-22 16:12 | US ---
Ultrasound-guided drainage catheter insertion. DATE OF EXAM: 08/22/2020 CLINICAL HISTORY: Postoperative suspected seroma within the anterior left subcutaneous tissues The procedure was discussed with the patient. The risks, complications, benefits, and alternatives we re discussed and any questions were answered. Informed consent was obtained. The patient was placed s upine on the ultrasound table and prepped and draped in the usual sterile fashion. All elements of maximal barrier technique were utilized. Under ultrasound guidance, access into the subcutaneous fluid collections achieved utilizing a drainage catheter trocar system. Catheter was see n to be in ideal position upon placement. Sample sent to pathology for analysis. All elements of maximal barrier and sterile technique utilized . The patient was stable throughout the procedure and remained stable upon discharge from Department of Radiology. IMPRESSION: Successful ultrasound-guided subcutaneous drainage catheter insertion for seroma.
[2020-08-22 16:21] LABS: Glucose,Whole Blood 98 mg/dL (75-99)
[2020-08-22] MEDS: FLUoxetine HCL 20 MG CAP PO SCH ×2 (16:43→20:50)
[2020-08-22] MEDS: LEVOFLOXACIN 750MG-D5W PMX 750 MG in DEXTROSE/WATER 1 150ML.BAG IVPB SCH (16:43)
[2020-08-22] MEDS: ASPIRIN 81 MG PO SCH (16:43)
[2020-08-22] MEDS: PRIMIDONE 50 MG TAB PO SCH ×2 (16:43→20:51)
[2020-08-22] MEDS: OXYBUTYNIN 10 MG TAB.ER.24 PO SCH (16:43)
[2020-08-22 17:31] LABS: Appearance,BF Hazy; Color,BF Orange; Nucleated Cells, Body Fluid 2700 /uL; RBC, Body Fluid 156000 /uL
[2020-08-22 17:46] LABS: Mononuclear WBC,Body Fluid 7 %; Polynuclear WBC,Body Fluid 93 %; Total Cells Counted,Body Fluid 100
[2020-08-22 20:41] LABS: Glucose,Whole Blood 110 mg/dL (75-99)
[2020-08-22] MEDS: ATORVASTATIN 40 MG TAB PO SCH (20:50)
[2020-08-22] MEDS: MAGNESIUM OXIDE 400 MG TAB PO SCH (20:50)
[2020-08-22] MEDS: ACETAMINOPHEN TAB 325 MG TAB PO PRN (20:50)
[2020-08-23 04:34] LABS: Glucose, Body Fluid 53 mg/dL
[2020-08-23] MEDS: SODIUM CHLORIDE 0.9% 1,000 ML IV SCH ×2 (04:40→08:52)
[2020-08-23 07:20] LABS: Glucose,Whole Blood 108 mg/dL (75-99)
[2020-08-23 07:27] VITALS: RESP 16
[2020-08-23] MEDS: INSULIN ASPART (NovoLOG) 100 UNIT/ML VIAL SQ SCH ×2 (08:41→15:47)
[2020-08-23] MEDS: ASPIRIN 81 MG PO SCH (08:51)
[2020-08-23] MEDS: FLUoxetine HCL 20 MG CAP PO SCH (08:51)
[2020-08-23] MEDS: HEPARIN SODIUM,PORCINE/PF 5,000 UNIT/0.5 ML SYRINGE SQ SCH (08:51)
[2020-08-23] MEDS: PANTOPRAZOLE 40 MG TABLET PO SCH (08:51)
[2020-08-23] MEDS: atenoloL 25 MG TAB PO SCH (08:52)
[2020-08-23] MEDS: SPIRONOLACTONE 25 MG TAB PO SCH (08:52)
[2020-08-23] MEDS: OXYBUTYNIN 10 MG TAB.ER.24 PO SCH (08:52)
[2020-08-23] MEDS: PRIMIDONE 50 MG TAB PO SCH (08:52)
[2020-08-23] MEDS: HYDROcodone/APAP 5-325MG 1 EACH TAB PO PRN (09:06)
[2020-08-23 09:14] LABS: Anisocytosis Slight; Basophils % (A) 0 %; Eosinophils # (A) 0.4 k/uL (0-0.7); Eosinophils % (A) 7 %; HCT 26.6 % (34.0-46.0); HGB 7.8 gm/dL (11.4-16.0); Hypochromasia Marked; Lymphocytes # (A) 0.7 k/uL (1.0-4.8); Lymphocytes % (A) 12 %; MCH 20.3 pg (25.0-35.0); MCHC 29.4 g/dL (31.0-37.0); MCV 69.1 fL (80.0-100.0); Mean Platelet Volume 6.8; Microcytosis Marked; Monocytes # (A) 0.3 k/uL (0-1.0); Monocytes % (A) 6 %; Neutrophils # (A) 4.3 k/uL (1.3-7.7); Neutrophils % (A) 74 %; Platelet Count 403 k/uL (150-450); Poikilocytosis Slight; RBC 3.84 m/uL (3.80-5.40); RDW 17.5 % (11.5-15.5); WBC 5.9 k/uL (3.8-10.6)
--- NOTE | 2020-08-23 13:03 | P.PN ---
Subjective Progress Note Date: 08/23/20 CHIEF COMPLAINT: Diarrhea HISTORY OF PRESENT ILLNESS: Surgical service is following in regards to patient 's postoperative seroma. Patient is status post ultrasound-guided drainage of the seroma. She has drainage to place. There is serosanguineous output. Patient reports improvement in her abdominal pain. Denies any further diarrhea. Denies any nausea or vomiting. Tolerating diet. She's afebrile. WBC is 5.9. PHYSICAL EXAM: VITAL SIGNS: Reviewed GENERAL: Well-developed in no acute distress. HEENT: No sclera icterus. Extraocular movements grossly intact. Moist buccal mucosa. Head is atraumatic, normocephalic. Hears conversational speech. No nasal drainage. NECK: Supple without lymphadenopathy. CHEST: Non-labored respirations and equal bilateral excursions. CARDIOVASCULAR: Palpable 2+ radial pulses. ABDOMEN: Soft. Nondistended. Nontender. Drainage tube with serosanguineous fluid MUSCULOSKELETAL: No clubbing or cyanosis. NEUROLOGIC: No focal or lateralizing signs. Cranial nerves II through XII grossly intact. PSYCH: Appropriate affect. Alert and oriented to person, place and time. SKIN: Well perfused. Good skin turgor. ASSESSMENT: 1. Postoperative seroma 2. History of perforated diverticulitis and incisional hernia status post exploratory laparotomy, reversal of colostomy, repair of incisional hernia and partial omentectomy on 07/27/[address] Sanchez PLAN: -Patient is stable from a surgical standpoint for discharge -recommend that patient be discharged with antibiotics -continue Regular diet, lactose free Physician Rn Family Practice note has been reviewed by physician. Signing provider agrees with the documented findings, assessment, and plan of care. Objective - Vital Signs Vital signs: Vital Signs Temp 98.0 F 08/23/20 11:01 Pulse 76 08/23/20 11:01 Resp 16 08/23/20 11:42 BP 150/84 08/23/20 11:01 Pulse Ox 98 08/23/20 11:01 Intake & Output 08/22/20 08/23/20 08/23/20 18:59 06:59 18:59 Intake Total 2009 1730 Balance 2009 1730 Intake: IV 1650 Sodium Chloride 0.9% 1, 1650 000 ml @ 150 mls/hr IV . Q6H40M [facility] Rx#:[id number] Intake, IV Titration 1250 Amount Sodium Chloride 0.9% 1, 1250 000 ml @ 150 mls/hr IV . Q6H40M [facility] Rx#:[id number] Oral 360 480 Other: Voiding Method Toilet Toilet # Voids 4 2 # Bowel Movements 1 - Labs CBC & Chem 7: 08/23/20 08:46 08/21/20 06:18 Labs: Abnormal Lab Results - Last 24 Hours (Table) 08/22/20 08/23/20 08/23/20 Range/Units 20:38 07:18 08:46 Hgb 7.8 L (11.4-16.0) gm/dL Hct 26.6 L (34.0-46.0) % MCV 69.1 L (80.0-100.0) fL MCH 20.3 L (25.0-35.0) pg MCHC 29.4 L (31.0-37.0) g/dL RDW 17.5 H (11.5-15.5) % Lymphocytes # 0.7 L (1.0-4.8) k/uL POC Glucose (mg/dL) 110 H 108 H (75-99) mg/dL Microbiology - Last 24 Hours (Table) 08/21/20 15:26 Gram Stain - Preliminary Aspirate Body Fluid Culture - Preliminary 08/21/20 15:26 Fungal Culture - Preliminary Abdominal Fluid 08/22/20 15:26 Anaerobic Culture - Preliminary Aspirate 08/22/20 14:21 Stool Culture - Preliminary Stool 08/20/20 13:45 Blood Culture - Preliminary Blood No Growth after 48 hours
[2020-08-23 13:15] LABS: Glucose,Whole Blood 103 mg/dL (75-99)
--- NOTE | 2020-08-23 13:24 | P.DS ---
Providers Date of admission: 08/22/20 13:48 Expected date of discharge: 08/23/20 Attending physician: Joan Bhatt MD Consults: 08/21/20 10:27 Consult Physician Routine Consulting Provider: Daniel Jimenez Consult Reason/Comments: Abd fluid collection, requires drainage Do you want consulting provider notified?: Yes 08/23/20 08:00 Consult Physician Routine Consulting Provider: Butch Sanchez Consult Reason/Comments: abdominal fluid collection Do you want consulting provider notified?: Already Contacted Primary care physician: [facility] Course: 65 year old woman with history of RA, DM, HTN, HLD, recent ventral hernia repair presented for diarrhea. Patient has been complaining of diarrhea since shortly after her previous hernia repair. It has gotten worse the last week, with up to 8 all movements of completely watery stools per day. She says the stool is orange in color and she is not sure if that contains blood or not. She has some abdominal pain in the left lower quadrant which can sometimes precede the bowel movement. She denies fevers, chills, nausea, vomiting, chest pain, palpitations, syncope, presyncope, dysuria, numbness/weakness. Based on her symptoms, she presented to the emergency room in [facility]. While she was there, she underwent lab work and imaging. Her CBC, chemistries, LFTs were unremarkable. Her lactate was 2.4, and trended down to 1.4 with fluid. Her EKG was normal sinus rhythm. Her computed tomography scan of the abdomen/pelvis showed an 11 cm fluid collection in the pelvis as well as postsurgical changes of the ventral hernia repair. Patient was transferred to [facility] and oriented to be reevaluated by her surgeon Dr. Sanchez. Patient will be admitted to medicine with surgical consultation regarding fluid collection. Fluid collection in the abdomen: Seroma Status post ventral hernia repair Diarrhea Patient admitted to hospital. Surgery consulted on the patient and recommend IR consult for drainage catheter placement. Pt was started on levofloxacin in case of infection, but procalcitonin was low and patient appeared non-infectious, so non-infected fluid collection in the abdomen such as phlegmon or seroma was favored. IR placed drainage catheter on 08/22, which drained serosanguinous, non-purulent fluid. C diff was negative. Stool culture did not grow pathogens. Patient was stable and tolerating a diet with soft BMs by day of discharge. Pain was well controlled. Pt was discharged with surgical follow up for drain management. Also prescribed short course of levofloxacin. Headache -likely medication related headache, spontaneously resolved CAD Hypertension Hyperlipidemia Diabetes type 2 Rheumatoid arthritis -Home meds reviewed and reconciled -new meds: levofloxacin -all other medications unchanged I spent 38 minutes coordinating this complex discharge Assessment: Gen: awake, alert HEENT: normocephalic, atraumatic, good hearing acuity, moist mucous membranes Resp: good air exchange, breathing comfortably with no accessory muscle use CVS: good distal perfusion x 4, GI: soft, ND, abdominal binder present, tenderness to palpation the left lower quadrant, +drain placement with serosanguinous fluid : no SPT, no CVAT, prado catheter not present MSK: no pitting edema, no clubbing Neuro: non-focal, moving all extremities Psych: cooperative, euthymic mood Patient Condition at Discharge: Good Plan - Discharge Summary Discharge Rx Participant: Yes New Discharge Prescriptions: New Acetaminophen Tab [Tylenol] 650 mg PO Q6HR PRN tab PRN Reason: Mild Pain Or Fever > 100.5 Levofloxacin [Levaquin] 500 mg PO DAILY 7 Days #7 tab Continue Spironolactone [Aldactone] 25 mg PO DAILY rOPINIRole HCL [Requip] 0.5 mg PO HS metFORMIN HCL [Glucophage] 500 mg PO DAILY atenoloL [Atenolol] 25 mg PO DAILY Tolterodine [Detrol] 2 mg PO BID Magnesium 500 mg PO HS Aspirin EC [Ecotrin Low Dose] 81 mg PO DAILY Melatonin 5 mg PO HS PRN PRN Reason: Insomnia Omeprazole 20 mg PO DAILY FLUoxetine HCL [PROzac] 20 mg PO BID Atorvastatin [Lipitor] 40 mg PO HS hydrOXYzine HCL [Atarax] 10 mg PO BID PRN PRN Reason: Anxiety SUMAtriptan SUCCINATE [Imitrex] 25 mg PO DAILY PRN PRN Reason: Migraine Headache Acetaminophen Tab [Tylenol] 1,000 mg PO Q6HR PRN PRN Reason: Pain Or Fever > 100.5 Primidone [Mysoline] 50 mg PO BID HYDROcodone/APAP 5-325MG [Fanshawe 5-325] 1 tab PO Q6HR PRN 3 Days #12 tab PRN Reason: Pain Discontinued Ondansetron [Zofran] 4 mg PO TID PRN PRN Reason: Nausea And Vomiting Discharge Medication List Atorvastatin [Lipitor] 40 mg PO HS 07/21/20 [History] FLUoxetine HCL [PROzac] 20 mg PO BID 07/21/20 [History] Magnesium 500 mg PO HS 07/21/20 [History] SUMAtriptan SUCCINATE [Imitrex] 25 mg PO DAILY PRN 07/21/20 [History] Spironolactone [Aldactone] 25 mg PO DAILY 07/21/20 [History] Tolterodine [Detrol] 2 mg PO BID 07/21/20 [History] atenoloL [Atenolol] 25 mg PO DAILY 07/21/20 [History] hydrOXYzine HCL [Atarax] 10 mg PO BID PRN 07/21/20 [History] metFORMIN HCL [Glucophage] 500 mg PO DAILY 07/21/20 [History] rOPINIRole HCL [Requip] 0.5 mg PO HS 07/21/20 [History] Acetaminophen Tab [Tylenol] 1,000 mg PO Q6HR PRN 07/26/20 [History] Aspirin EC [Ecotrin Low Dose] 81 mg PO DAILY 07/26/20 [History] Melatonin 5 mg PO HS PRN 07/26/20 [History] Primidone [Mysoline] 50 mg PO BID 07/26/20 [History] HYDROcodone/APAP 5-325MG [Fanshawe 5-325] 1 tab PO Q6HR PRN 3 Days #12 tab 08/05/20 [Rx] Omeprazole 20 mg PO DAILY 08/20/20 [History] Acetaminophen Tab [Tylenol] 650 mg PO Q6HR PRN tab 08/23/20 [Rx] Levofloxacin [Levaquin] 500 mg PO DAILY 7 Days #7 tab 08/23/20 [Rx] Follow up Appointment(s)/Referral(s): Rudolph Quinteros MD [Primary Care Provider] - 1-2 days Jaxson Marc [NON-STAFF] - Butch Sanchez MD [STAFF PHYSICIAN] - 1 Week Discharge Disposition: HOME SELF-CARE
[2020-08-23] MEDS: LEVOFLOXACIN 750MG-D5W PMX 750 MG in DEXTROSE/WATER 1 150ML.BAG IVPB SCH (13:47)
[2020-08-23 15:02] VITALS: BP 135/72; PULSE 80; TEMP 98.1
== END 2020-08-23 16:10 | disposition home or self-care (01) | DRG 920 ==
LOC: EC 11:45 → 4SSUR 13:13 → OBSVTOIN 08-22 13:48 → 6PED 08-23 12:06
PROVIDERS: ADMIT Internal Medicine; ATTEND Internal Medicine
PROC: 0W9F30Z Drainage of Abdominal Wall with Drainage Device, Percutaneous Approach (ICD-10-PCS; principal; 2020-08-22)
DX: K91.872 Postprocedural seroma of a digestive system organ or structure following a digestive system procedure (principal); R18.8 Other ascites; E11.9 Type 2 diabetes mellitus without complications; E78.5 Hyperlipidemia, unspecified; Z88.1 Allergy status to other antibiotic agents; F32.9 Major depressive disorder, single episode, unspecified; I25.10 Atherosclerotic heart disease of native coronary artery without angina pectoris; M19.90 Unspecified osteoarthritis, unspecified site; T50.905A Adverse effect of unspecified drugs, medicaments and biological substances, initial encounter; G43.909 Migraine, unspecified, not intractable, without status migrainosus; F41.9 Anxiety disorder, unspecified; G25.81 Restless legs syndrome; I10 Essential (primary) hypertension; R19.7 Diarrhea, unspecified; K21.9 Gastro-esophageal reflux disease without esophagitis; R32 Unspecified urinary incontinence; M06.9 Rheumatoid arthritis, unspecified; Y84.8 Other medical procedures as the cause of abnormal reaction of the patient, or of later complication, without mention of misadventure at the time of the procedure; Z79.4 Long term (current) use of insulin; Z20.822 Contact with and (suspected) exposure to COVID-19; Z79.82 Long term (current) use of aspirin; Z79.899 Other long term (current) drug therapy; Z87.19 Personal history of other diseases of the digestive system; Z87.442 Personal history of urinary calculi; Z93.3 Colostomy status; Z95.5 Presence of coronary angioplasty implant and graft; Z98.890 Other specified postprocedural states; Z88.5 Allergy status to narcotic agent; Z91.041 Radiographic dye allergy status; X58.XXXA Exposure to other specified factors, initial encounter
CPT/HCPCS: 10030; 76942; 80048; 82945; 83615; 83735; 84145; 84157; 85025; 85610; 87040; 87045; 87046; 87070; 87075; 87102; 87205; 87635; 89050; 99285

== ENCOUNTER 2021-05-20 17:33 | Emergency (ER) | payer MEDICARE, OTHER ==
[2021-05-20] MEDS ORDERED: diphenhydrAMINE 50 MG/ML 1 ML VIAL IVP STA (18:28)
[2021-05-20] MEDS ORDERED: MORPHINE SULFATE 4 MG/ML SYRINGE IVP STA (18:28)
[2021-05-20] MEDS ORDERED: methylPREDNISolone SOD SUCCI 125 MG/2 ML VIAL IV STA (18:28)
[2021-05-20] MEDS ORDERED: FAMOTIDINE 20 MG/2 ML VIAL IV STA (18:28)
--- NOTE | 2021-05-20 18:29 | ED ---
Abdominal Pain HPI - General Chief Complaint: Abdominal Pain Stated Complaint: abd pain Time Seen by Provider: 05/20/21 17:52 Source: patient Mode of arrival: wheelchair Limitations: no limitations - History of Present Illness Initial Comments: 65 year old female past medical history of colostomy with reversal presents to the emergency room with lower abdominal pain. Patient states that it has been going on for the past several days. She has associated diarrhea. No black or bloody stools. No changes in her urination. No vaginal bleeding or discharge. Denies any fevers. No chest pain or shortness of breath. Took Imodium at home for her symptoms without any improvement. Patient concern for issues with her previous surgery and therefore presented to the emergency department. - Related Data Home Medications Medication Instructions Recorded Confirmed Atorvastatin [Lipitor] 40 mg PO HS 07/21/20 08/20/20 FLUoxetine HCL [PROzac] 20 mg PO BID 07/21/20 08/20/20 Magnesium 500 mg PO HS 07/21/20 08/20/20 SUMAtriptan SUCCINATE [Imitrex] 25 mg PO DAILY PRN 07/21/20 08/20/20 Spironolactone [Aldactone] 25 mg PO DAILY 07/21/20 08/20/20 Tolterodine [Detrol] 2 mg PO BID 07/21/20 08/20/20 atenoloL 25 mg PO DAILY 07/21/20 08/20/20 hydrOXYzine HCL [Atarax] 10 mg PO BID PRN 07/21/20 08/20/20 metFORMIN HCL [Glucophage] 500 mg PO DAILY 07/21/20 08/20/20 rOPINIRole HCL [Requip] 0.5 mg PO HS 07/21/20 08/20/20 Acetaminophen Tab [Tylenol] 1,000 mg PO Q6HR PRN 07/26/20 08/20/20 Aspirin EC [Ecotrin Low Dose] 81 mg PO DAILY 07/26/20 08/20/20 Melatonin 5 mg PO HS PRN 07/26/20 08/20/20 Primidone [Mysoline] 50 mg PO BID 07/26/20 08/20/20 Omeprazole 20 mg PO DAILY 08/20/20 08/20/20 Previous Rx's Medication Instructions Recorded HYDROcodone/APAP 5-325MG [Daniels 1 tab PO Q6HR PRN 3 Days #12 tab 08/05/20 5-325] Acetaminophen Tab [Tylenol] 650 mg PO Q6HR PRN tab 08/23/20 Levofloxacin [Levaquin] 500 mg PO DAILY 7 Days #7 tab 08/23/20 Cephalexin [Keflex] 500 mg PO BID #14 cap 05/20/21 Phenazopyridine [Pyridium] 200 mg PO TID #6 tablet 05/20/21 Allergies Allergy/AdvReac Type Severity Reaction Status Date / Time amoxicillin Allergy Rash/Hives Verified 05/20/21 17:39 hydromorphone [From Dilaudid] Allergy Rash/Hives Verified 05/20/21 17:39 Iodinated Contrast Media Allergy Rash/Hives Verified 05/20/21 17:39 Review of Systems ROS Statement: Those systems with pertinent positive or pertinent negative responses have been documented in the HPI. ROS Other: All systems not noted in ROS Statement are negative. Past Medical History Past Medical History: Coronary Artery Disease (CAD), GERD/Reflux, Hyperlipidemia, Hypertension, Osteoarthritis (OA), Rheumatoid Arthritis (RA) Additional Past Medical History / Comment(s): colostomy, hx of fistula with abscess, sx at [facility], hx of colon polyps, hx of kidney stones, incisional hernia, restless leg, states on metformin for weight loss, not diabetes, hx of urinary incontinence, hx migraines History of Any Multi-Drug Resistant Organisms: None Reported Past Surgical History: Heart Catheterization With Stent Additional Past Surgical History / Comment(s): colostomy 08/2018, ostomy reversal in 08/14 @ [facility], 2 cardiac stents, lithotripsy. Past Anesthesia/Blood Transfusion Reactions: Previous Problems w/ Anesthesia Additional Past Anesthesia/Blood Transfusion Reaction / Comment(s): trouble waking up in past Date of Last Stent Placement:: 2008 Past Psychological History: Anxiety, Depression Smoking Status: Never smoker Past Alcohol Use History: None Reported Past Drug Use History: None Reported - Past Family History Mother Family Medical History: No Reported History General Exam Limitations: no limitations Course Vital Signs 05/20/21 05/20/21 05/20/21 17:39 18:59 21:18 Temperature 97.7 F Pulse Rate 76 72 78 Respiratory 16 17 18 Rate Blood Pressure 132/82 152/80 131/59 O2 Sat by Pulse 98 93 L 97 Oximetry Medical Decision Making - Medical Decision Making On arrival patient placed in room 19. The patient's potassium was performed. IV access established laboratory says recommended. Lactic acid 2.2. Urinalysis demonstrates nitrites, moderate leukocyte esterase with moderate bacteria. Patient given a dose of Rocephin. CT of the abdomen and pelvis is performed which demonstrates nonobstructing right-sided renal calculus which was previously seen. Discussed diagnosis, differential and treatment options. The patient will be discharged home on Pyridium, Lomotil and Keflex. Instructed about the primary care doctor to 4 days as well as Dr. Bailey. Return for any worsening symptoms. Patient agreed treatment plan was discharged home in stable condition - Lab Data Result diagrams: 05/20/21 19:05 05/20/21 19:05 Lab Results 05/20/21 05/20/21 05/20/21 Range/Units 19:05 19:05 19:05 WBC 10.6 (3.8-10.6) k/uL RBC 5.11 (3.80-5.40) m/uL Hgb 11.2 L (11.4-16.0) gm/dL Hct 38.1 (34.0-46.0) % MCV 74.5 L (80.0-100.0) fL MCH 22.0 L (25.0-35.0) pg MCHC 29.5 L (31.0-37.0) g/dL RDW 15.8 H (11.5-15.5) % Plt Count 454 H (150-450) k/uL MPV 7.4 Neutrophils % 76 % Lymphocytes % 15 % Monocytes % 6 % Eosinophils % 1 % Basophils % 0 % Neutrophils # 8.0 H (1.3-7.7) k/uL Lymphocytes # 1.6 (1.0-4.8) k/uL Monocytes # 0.7 (0-1.0) k/uL Eosinophils # 0.1 (0-0.7) k/uL Basophils # 0.0 (0-0.2) k/uL Hypochromasia Marked Microcytosis Slight PT (9.0-12.0) sec INR (<1.2) APTT (22.0-30.0) sec Sodium 136 L (137-145) mmol/L Potassium 4.9 (3.5-5.1) mmol/L Chloride 103 (98-107) mmol/L Carbon Dioxide 23 (22-30) mmol/L Anion Gap 10 mmol/L BUN 15 (7-17) mg/dL Creatinine 0.80 (0.52-1.04) mg/dL Est GFR (CKD-EPI)AfAm 89 (>60 ml/min/1.73 sqM) Est GFR (CKD-EPI)NonAf 77 (>60 ml/min/1.73 sqM) Glucose 91 (74-99) mg/dL Plasma Lactic Acid Terry (0.7-2.0) mmol/L Calcium 9.0 (8.4-10.2) mg/dL Total Bilirubin 0.9 (0.2-1.3) mg/dL AST 57 H (14-36) U/L ALT 28 (4-34) U/L Alkaline Phosphatase 84 (38-126) U/L Troponin I (0.000-0.034) ng/mL Total Protein 7.2 (6.3-8.2) g/dL Albumin 4.3 (3.5-5.0) g/dL Lipase 40 (23-300) U/L Urine Color Yellow Urine Appearance Cloudy H (Clear) Urine pH 6.5 (5.0-8.0) Ur Specific [place] 1.024 (1.001-1.035) Urine Protein 1+ H (Negative) Urine Glucose (UA) Negative (Negative) Urine Ketones Negative (Negative) Urine Blood Negative (Negative) Urine Nitrite Positive H (Negative) Urine Bilirubin Negative (Negative) Urine Urobilinogen <2.0 (<2.0) mg/dL Ur Leukocyte Esterase Moderate H (Negative) Urine RBC 2 (0-5) /hpf Urine WBC 63 H (0-5) /hpf Ur Squamous Epith Cells 2 (0-4) /hpf Urine Bacteria Moderate H (None) /hpf Hyaline Casts 8 H (0-2) /lpf Urine Mucus Many H (None) /hpf 05/20/21 05/20/21 05/20/21 Range/Units 19:05 19:05 19:05 WBC (3.8-10.6) k/uL RBC (3.80-5.40) m/uL Hgb (11.4-16.0) gm/dL Hct (34.0-46.0) % MCV (80.0-100.0) fL MCH (25.0-35.0) pg MCHC (31.0-37.0) g/dL RDW (11.5-15.5) % Plt Count (150-450) k/uL MPV Neutrophils % % Lymphocytes % % Monocytes % % Eosinophils % % Basophils % % Neutrophils # (1.3-7.7) k/uL Lymphocytes # (1.0-4.8) k/uL Monocytes # (0-1.0) k/uL Eosinophils # (0-0.7) k/uL Basophils # (0-0.2) k/uL Hypochromasia Microcytosis PT 10.6 (9.0-12.0) sec INR 1.0 (<1.2) APTT 22.2 (22.0-30.0) sec Sodium (137-145) mmol/L Potassium (3.5-5.1) mmol/L Chloride (98-107) mmol/L Carbon Dioxide (22-30) mmol/L Anion Gap mmol/L BUN (7-17) mg/dL Creatinine (0.52-1.04) mg/dL Est GFR (CKD-EPI)AfAm (>60 ml/min/1.73 sqM) Est GFR (CKD-EPI)NonAf (>60 ml/min/1.73 sqM) Glucose (74-99) mg/dL Plasma Lactic Acid Terry 2.2 H* (0.7-2.0) mmol/L Calcium (8.4-10.2) mg/dL Total Bilirubin (0.2-1.3) mg/dL AST (14-36) U/L ALT (4-34) U/L Alkaline Phosphatase (38-126) U/L Troponin I <0.012 (0.000-0.034) ng/mL Total Protein (6.3-8.2) g/dL Albumin (3.5-5.0) g/dL Lipase (23-300) U/L Urine Color Urine Appearance (Clear) Urine pH (5.0-8.0) Ur Specific [place] (1.001-1.035) Urine Protein (Negative) Urine Glucose (UA) (Negative) Urine Ketones (Negative) Urine Blood (Negative) Urine Nitrite (Negative) Urine Bilirubin (Negative) Urine Urobilinogen (<2.0) mg/dL Ur Leukocyte Esterase (Negative) Urine RBC (0-5) /hpf Urine WBC (0-5) /hpf Ur Squamous Epith Cells (0-4) /hpf Urine Bacteria (None) /hpf Hyaline Casts (0-2) /lpf Urine Mucus (None) /hpf - EKG Data EKG Comments: EKG demonstrates sinus rhythm with a rate of 72. Para 145. QRS 81. QTC of 441. Baseline artifact. No acute ST segment elevations. Disposition Clinical Impression: Abdominal pain, UTI (urinary tract infection) Disposition: HOME SELF-CARE Condition: Stable Instructions (If sedation given, give patient instructions): Urinary Tract Infection in Women (ED) Additional Instructions: Please take the medications as directed and follow-up with your surgeon next week. Return for any new or worsening symptoms Prescriptions: Cephalexin [Keflex] 500 mg PO BID #14 cap Phenazopyridine [Pyridium] 200 mg PO TID #6 tablet Is patient prescribed a controlled substance at d/c from ED?: No Referrals: Rudolph Quinteros MD [Primary Care Provider] - 1-2 days Butch Sanchez MD [STAFF PHYSICIAN] - 1-2 days Time of Disposition: 21:54
[2021-05-20 20:06] LABS: Albumin 4.3 g/dL (3.5-5.0); Total Bilirubin 0.9 mg/dL (0.2-1.3); Total Protein 7.2 g/dL (6.3-8.2)
[2021-05-20 20:10] LABS: Potassium 4.9 mmol/L (3.5-5.1)
[2021-05-20 20:11] LABS: Partial Thromboplastin Time 22.2 sec (22.0-30.0); Prothrombin Time 10.6 sec (9.0-12.0)
[2021-05-20 20:27] LABS: Basophils % (A) 0 %; Eosinophils # (A) 0.1 k/uL (0-0.7); Eosinophils % (A) 1 %; HCT 38.1 % (34.0-46.0); HGB 11.2 gm/dL (11.4-16.0); Hypochromasia Marked; Lymphocytes # (A) 1.6 k/uL (1.0-4.8); Lymphocytes % (A) 15 %; MCHC 29.5 g/dL (31.0-37.0); MCV 74.5 fL (80.0-100.0); Mean Platelet Volume 7.4; Microcytosis Slight; Monocytes # (A) 0.7 k/uL (0-1.0); Monocytes % (A) 6 %; Neutrophils % (A) 76 %; Platelet Count 454 k/uL (150-450); RBC 5.11 m/uL (3.80-5.40); RDW 15.8 % (11.5-15.5); WBC 10.6 k/uL (3.8-10.6)
[2021-05-20 20:33] LABS: Appearance,Urine Cloudy (Clear); Bacteria,Urine Moderate /hpf; Bilirubin,Urine Negative (Negative); Blood,Urine Negative (Negative); Color,Urine Yellow; Glucose,Urine (UA) Negative (Negative); Hyaline Casts,Urine 8 /lpf (0-2); Ketones,Urine Negative (Negative); Leukocyte Esterase,Urine Moderate (Negative); Mucus,Urine Many /hpf; Nitrite,Urine Positive (Negative); PH, Urine 6.5 (5.0-8.0); Protein,Urine 1+ (Negative); RBC,Urine 2 /hpf (0-5); Specific Gravity,Urine 1.024 (1.001-1.035); Squamous Epithelial Cell,Urine 2 /hpf (0-4); Urobilinogen,Urine <2.0 mg/dL (<2.0); WBC,Urine 63 /hpf (0-5)
[2021-05-20] MEDS ORDERED: cefTRIAXone IN SWFI 1,000 MG/10 ML SYRINGE IVP STA (20:40)
[2021-05-20] MEDS ORDERED: SODIUM CHLORIDE 0.9% 1,000 ML IV ONE (20:40)
--- NOTE | 2021-05-20 21:01 | CT ---
EXAMINATION TYPE: CT abdomen pelvis w con DATE OF EXAM: 05/20/2021 COMPARISON: 08/20/2020 HISTORY: Abdominal pain CT DLP: 1016.7 mGycm Automated exposure control for dose reduction was used. CONTRAST: Performed with IV Contrast, patient injected with 100 mL of Isovue 300. Images obtained from the diaphragm to the floor the pelvis with IV contrast. There is mild subsegmental atelectasis left lung base. Heart size is normal. No pericardial effusion. Liver spleen and stomach pancreas gallbladder appear intact. Bowel ducts are not dilated. There is no adrenal mass. Kidneys show satisfactory contrast opacification. There is some fullness le ft and right renal pelvis. There is 6 mm calculus in the right renal pelvis. There is a 5 mm calculus lateral right kidney. There is 2 cm cortical cyst lateral right kidney. Delayed images show normal r enal excretion. Ureters are not dilated. No evidence of renal obstruction. There is some fat strandin g in the subcutaneous tissues in the midline abdomen consistent with previous surgery. There is no re troperitoneal adenopathy. The bladder distends smoothly. Uterus is anteverted. There is previous surg radha at the rectum. No inguinal hernia. No free fluid in the pelvis. There is apparent total colectomy . The bony pelvis is intact. Hip joints are intact. Lumbar spine is intact. No compression fracture. IMPRESSION: Nonobstructing right-sided renal calculi also present on old exam. No obstruction seen. Large left an d right renal pelvis could relate to previous episodes of obstruction. Previous surgery. No bowel obstruction.
[2021-05-20 21:18] VITALS: RESP 18
[2021-05-20] MEDS ORDERED: PHENAZOPYRIDINE 200 MG TAB PO STA (21:45)
[2021-05-20] MEDS ORDERED: DIPHENOX-ATROP STARTER PACK 8 TAB BTL PO STA (21:45)
[2021-05-20 23:02] VITALS: BP 127/71; PULSE 81; TEMP 98.2
== END 2021-05-20 23:02 | disposition home or self-care (01) ==
LOC: EC 17:33
DX: N39.0 Urinary tract infection, site not specified (principal); I25.10 Atherosclerotic heart disease of native coronary artery without angina pectoris; K21.9 Gastro-esophageal reflux disease without esophagitis; E78.5 Hyperlipidemia, unspecified; I10 Essential (primary) hypertension; M06.9 Rheumatoid arthritis, unspecified; F41.9 Anxiety disorder, unspecified; F32.A Depression, unspecified; Z79.84 Long term (current) use of oral hypoglycemic drugs; Z79.82 Long term (current) use of aspirin; Z79.899 Other long term (current) drug therapy; Z88.5 Allergy status to narcotic agent; Z88.0 Allergy status to penicillin; Z86.010 Personal history of colon polyps; Z87.442 Personal history of urinary calculi
CPT/HCPCS: 99284; 96374; 96375 ×4; 96361 ×2; 36415; 93005; 80053; 83605; 83690; 84484; 85025; 85610; 85730; 81001; 87086; 74177; J2270; J1200; J2930; J0696; Q9967

== ENCOUNTER 2022-10-09 09:45 | Inpatient (IN) | payer MEDICARE, OTHER ==
[2022-10-09] MEDS ORDERED: MORPHINE SULFATE 4 MG/ML SYRINGE IVP STA (10:04)
[2022-10-09] MEDS ORDERED: FAMOTIDINE 20 MG/2 ML VIAL IV STA (10:04)
[2022-10-09] MEDS ORDERED: SODIUM CHLORIDE 0.9% 1,000 ML IV STA (10:04)
[2022-10-09] MEDS ORDERED: methylPREDNISolone SOD SUCCI 125 MG/2 ML VIAL IV STA (10:04)
[2022-10-09] MEDS ORDERED: diphenhydrAMINE 50 MG/ML 1 ML VIAL IVP STA (10:04)
--- NOTE | 2022-10-09 10:09 | ED ---
Abdominal Pain HPI - General Chief Complaint: Abdominal Pain Stated Complaint: abd pain Time Seen by Provider: 10/09/22 09:48 Source: patient, RN notes reviewed Mode of arrival: EMS Limitations: no limitations - History of Present Illness Initial Comments: This is a 67-year-old female who presents to the emergency department for abdominal pain. States that she's had increasing abdominal pain in the right lower quadrant and left upper quadrant/epigastric region over the last week. Reports a history of a colectomy secondary to abscess formation as well as a history of a hernia, and is worried about complications from these surgeries. Most recent surgery took place here in 2020. She did throw up this morning, however she did not throw prior to this. She is also concerned about her blood pressure being elevated. She took her blood pressure medication yesterday and is due to take her medication at 11 AM this morning. Does report a headache, but is unsure if this is related to her BP or not. Denies any fevers, chills, sore throat, cough, dyspnea, chest pain, palpitations, diarrhea, or back pain. MD Complaint: abdominal pain Onset/Timin -: week(s) Location: LUQ, RLQ, epigastric - Related Data Home Medications Medication Instructions Recorded Confirmed Atorvastatin [Lipitor] 40 mg PO HS 07/21/20 10/09/22 SUMAtriptan succinate [Imitrex] 25 mg PO DAILY PRN 07/21/20 10/09/22 Spironolactone [Aldactone] 25 mg PO DAILY 07/21/20 10/09/22 atenoloL 25 mg PO DAILY 07/21/20 10/09/22 rOPINIRole HCL [Requip] 0.5 mg PO HS 07/21/20 10/09/22 Ferrous Sulfate [Feosol] 325 mg PO DAILY 10/09/22 10/09/22 Pantoprazole Sodium 20 mg PO DAILY 10/09/22 10/09/22 Sertraline [Zoloft] 150 mg PO DAILY 10/09/22 10/09/22 Solifenacin Succinate [Vesicare] 5 mg PO DAILY 10/09/22 10/09/22 buPROPion XL [Wellbutrin XL] 300 mg PO DAILY 10/09/22 10/09/22 Allergies Allergy/AdvReac Type Severity Reaction Status Date / Time amoxicillin Allergy Rash/Hives Verified 10/09/22 11:51 aspirin [From Percodan] Allergy Itching Verified 10/09/22 11:51 hydromorphone [From Dilaudid] Allergy Rash/Hives Verified 10/09/22 11:51 Iodinated Contrast Media Allergy Rash/Hives Verified 10/09/22 11:51 oxycodone [From Percodan] Allergy Itching Verified 10/09/22 11:51 Review of Systems ROS Statement: Those systems with pertinent positive or pertinent negative responses have been documented in the HPI. ROS Other: All systems not noted in ROS Statement are negative. Past Medical History Past Medical History: Coronary Artery Disease (CAD), GERD/Reflux, Hyperlipidemia, Hypertension, Osteoarthritis (OA), Rheumatoid Arthritis (RA) Additional Past Medical History / Comment(s): colostomy, hx of fistula with abscess, sx at [facility], hx of colon polyps, hx of kidney stones, incisional hernia, restless leg, states on metformin for weight loss, not diabetes, hx of urinary incontinence, hx migraines History of Any Multi-Drug Resistant Organisms: None Reported Past Surgical History: Heart Catheterization With Stent, Hernia Repair Additional Past Surgical History / Comment(s): colostomy 08/2018, ostomy reversal in 08/14 @ [facility], 2 cardiac stents, lithotripsy. hernia surgery x 2 Past Anesthesia/Blood Transfusion Reactions: Previous Problems w/ Anesthesia Additional Past Anesthesia/Blood Transfusion Reaction / Comment(s): trouble waking up in past Date of Last Stent Placement:: 2008 Past Psychological History: Anxiety, Depression Smoking Status: Never smoker Past Alcohol Use History: None Reported Past Drug Use History: None Reported - Past Family History Mother Family Medical History: No Reported History General Exam Limitations: no limitations General appearance: alert, in no apparent distress Head exam: Present: atraumatic, normocephalic, normal inspection Respiratory exam: Present: normal lung sounds bilaterally. Absent: respiratory distress, wheezes, rales, rhonchi, stridor Cardiovascular Exam: Present: regular rate, normal rhythm, normal heart sounds. Absent: systolic murmur, diastolic murmur, rubs, gallop, clicks GI/Abdominal exam: Present: soft, tenderness (diffuse), normal bowel sounds. Absent: distended Neurological exam: Present: alert, oriented X3, CN II-XII intact Psychiatric exam: Present: normal affect, normal mood Skin exam: Present: warm, dry, intact, normal color. Absent: rash Course Vital Signs 10/09/22 10/09/22 10/09/22 09:46 10:53 11:58 Temperature 97.5 F L Pulse Rate 79 89 100 Respiratory 18 18 18 Rate Blood Pressure 198/99 188/92 189/99 O2 Sat by Pulse 95 95 96 Oximetry 10/09/22 14:46 Temperature Pulse Rate 110 H Respiratory 20 Rate Blood Pressure 172/79 O2 Sat by Pulse 96 Oximetry Medical Decision Making - Medical Decision Making This is a 67-year-old female who presents to the emergency department for abdominal pain. Was pt. sent in by a medical professional or institution? @ -No Did you speak to anyone other than the patient for history? @ -No Did you review nursing and triage notes? @ -Yes, and I agree, it is accurate with regards to the patient's symptoms. Were old charts reviewed? @ -No Differential Diagnosis? @ -Differential Abdominal Pain Women: Appendicitis, Cholecystitis, diverticulosis, ischemic bowel, pancreatitis, hepatitis, UTI, gastroenteritis, AAA, incarcerated hernia, bowel obstruction, constipation, inflammatory bowel, hepatitis, peptic ulcer disease, splenic infarction, perforated viscus, vulvitis, ovarian torsion, PID, kidney stone, placenta abruption, this is not meant to be an all-inclusive list EKG interpreted by me (3pts min.)? @ -EKG interpreted by me demonstrating the following: Sinus rhythm. Ventricular rate 86 beats per minute, AR interval 166 ms, QRS duration 84 ms, QTC 447 ms. X-rays interpreted by me (1pt min.)? @ -Not obtained CT interpreted by me (1pt min.)? @ -Computed tomography scan of the abdomen and pelvis obtained. My interpretation identifies a right ureteral calculus with hydronephrosis. U/S interpreted by me (1pt. min.)? @ -Not obtained What testing was considered but not performed? (CT, X-rays, U/S, labs)? Why? @ -None What meds were considered but not given? Why? @ -None Did you discuss the management of the patient with other professionals? @ -Yes, Dr. Marie, who recommended admission to medicine with IV antibiotics. He will plan to consult on the patient. I spoke with Dr. Taylor, who accepts the patient for admission. Did you reconcile home meds? @ -Yes Was smoking cessation discussed for >3mins.? @ -No Was critical care preformed (if so, how long)? @ -No Were there social determinants of health that impacted care today? How? (Homelessness, low income, unemployed, alcoholism, drug addiction, transportation, low edu. Level, literacy, decrease access to med. care, snf, rehab)? @ -No Was there de-escalation of care discussed even if they declined? (Discuss DNR or withdrawal of care, Hospice)? @ -No What co-morbidities impacted this encounter? (DM, HTN, Smoking, COPD, CAD, Cancer, CVA, Hep., AIDS, mental health diagnosis, sleep apnea, morbid obesity)? @ -CAD, HLD, HTN Was patient admitted / discharged? @ -Admitted. Lab work obtained revealing leukocytosis. Urinalysis consistent with infection. Computed tomography scan of the abdomen and pelvis obtained revealing a 6 mm ureteral calculus at the ureteropelvic brim with hydroureteronephrosis. Patient does report a history of kidney stones. Case discussed with Dr. Tolbert, who is agreeable to admission for IV antibiotics for the UTI associated with the ureteral calculus. Patient started on ceftriaxone. Blood and urine cultures obtained. Patient admitted to medicine for further man agement with urology placed on consult. Undiagnosed new problem with uncertain prognosis? @ -None Drug Therapy requiring intensive monitoring for toxicity (Heparin, Nitro, Insulin, Cardizem)? @ -None Were any procedures done? @ -None Diagnosis/symptom? @ -UTI, right ureteral calculus Acute, or Chronic, or Acute on Chronic? @ -Acute Uncomplicated (without systemic symptoms) or Complicated (systemic symptoms)? @ -Uncomplicated Side effects of treatment? @ -None Exacerbation, Progression, or Severe Exacerbation] @ -Not applicable Poses a threat to life or bodily function? @ -Yes This case was discussed in detail with the attending ED physician, Dr. Post. Presentation, findings, and treatment plan discussed in detail as well. - Lab Data Result diagrams: 10/09/22 10:43 10/09/22 10:43 Lab Results 10/09/22 10/09/22 10/09/22 Range/Units 10:43 10:43 10:43 WBC 12.7 H (3.8-10.6) k/uL RBC 5.14 (3.80-5.40) m/uL Hgb 13.0 (11.4-16.0) gm/dL Hct 41.0 (34.0-46.0) % MCV 79.7 L (80.0-100.0) fL MCH 25.3 (25.0-35.0) pg MCHC 31.7 (31.0-37.0) g/dL RDW 18.7 H (11.5-15.5) % Plt Count 265 (150-450) k/uL MPV 7.3 Neutrophils % 92 % Lymphocytes % 4 % Monocytes % 3 % Eosinophils % 1 % Basophils % 0 % Neutrophils # 11.7 H (1.3-7.7) k/uL Lymphocytes # 0.5 L (1.0-4.8) k/uL Monocytes # 0.4 (0-1.0) k/uL Eosinophils # 0.1 (0-0.7) k/uL Basophils # 0.0 (0-0.2) k/uL Hypochromasia Moderate Anisocytosis Slight Microcytosis Slight Sodium 140 (137-145) mmol/L Potassium 3.8 (3.5-5.1) mmol/L Chloride 109 H (98-107) mmol/L Carbon Dioxide 19 L (22-30) mmol/L Anion Gap 12 mmol/L BUN 11 (7-17) mg/dL Creatinine 0.98 (0.52-1.04) mg/dL Est GFR (CKD-EPI)AfAm 69 (>60 ml/min/1.73 sqM) Est GFR (CKD-EPI)NonAf 59 (>60 ml/min/1.73 sqM) Glucose 143 H (74-99) mg/dL Plasma Lactic Acid Terry (0.7-2.0) mmol/L Calcium 8.8 (8.4-10.2) mg/dL Total Bilirubin 0.4 (0.2-1.3) mg/dL AST 45 H (14-36) U/L ALT 31 (4-34) U/L Alkaline Phosphatase 145 H (38-126) U/L Total Protein 6.6 (6.3-8.2) g/dL Albumin 4.1 (3.5-5.0) g/dL Amylase 47 (30-110) U/L Lipase 72 (23-300) U/L Urine Color Yellow Urine Appearance Cloudy H (Clear) Urine pH 5.5 (5.0-8.0) Ur Specific [place] 1.015 (1.001-1.035) Urine Protein 1+ H (Negative) Urine Glucose (UA) Negative (Negative) Urine Ketones Negative (Negative) Urine Blood Small H (Negative) Urine Nitrite Negative (Negative) Urine Bilirubin Negative (Negative) Urine Urobilinogen <2.0 (<2.0) mg/dL Ur Leukocyte Esterase Large H (Negative) Urine RBC 26 H (0-5) /hpf Urine WBC >182 H (0-5) /hpf Urine WBC Clumps Many H (None) /hpf Amorphous Sediment Rare H (None) /hpf Urine Bacteria Rare H (None) /hpf Hyaline Casts 2 (0-2) /lpf Urine Mucus Rare H (None) /hpf 10/09/22 Range/Units 10:43 WBC (3.8-10.6) k/uL RBC (3.80-5.40) m/uL Hgb (11.4-16.0) gm/dL Hct (34.0-46.0) % MCV (80.0-100.0) fL MCH (25.0-35.0) pg MCHC (31.0-37.0) g/dL RDW (11.5-15.5) % Plt Count (150-450) k/uL MPV Neutrophils % % Lymphocytes % % Monocytes % % Eosinophils % % Basophils % % Neutrophils # (1.3-7.7) k/uL Lymphocytes # (1.0-4.8) k/uL Monocytes # (0-1.0) k/uL Eosinophils # (0-0.7) k/uL Basophils # (0-0.2) k/uL Hypochromasia Anisocytosis Microcytosis Sodium (137-145) mmol/L Potassium (3.5-5.1) mmol/L Chloride (98-107) mmol/L Carbon Dioxide (22-30) mmol/L Anion Gap mmol/L BUN (7-17) mg/dL Creatinine (0.52-1.04) mg/dL Est GFR (CKD-EPI)AfAm (>60 ml/min/1.73 sqM) Est GFR (CKD-EPI)NonAf (>60 ml/min/1.73 sqM) Glucose (74-99) mg/dL Plasma Lactic Acid Terry 1.7 (0.7-2.0) mmol/L Calcium (8.4-10.2) mg/dL Total Bilirubin (0.2-1.3) mg/dL AST (14-36) U/L ALT (4-34) U/L Alkaline Phosphatase (38-126) U/L Total Protein (6.3-8.2) g/dL Albumin (3.5-5.0) g/dL Amylase (30-110) U/L Lipase (23-300) U/L Urine Color Urine Appearance (Clear) Urine pH (5.0-8.0) Ur Specific [place] (1.001-1.035) Urine Protein (Negative) Urine Glucose (UA) (Negative) Urine Ketones (Negative) Urine Blood (Negative) Urine Nitrite (Negative) Urine Bilirubin (Negative) Urine Urobilinogen (<2.0) mg/dL Ur Leukocyte Esterase (Negative) Urine RBC (0-5) /hpf Urine WBC (0-5) /hpf Urine WBC Clumps (None) /hpf Amorphous Sediment (None) /hpf Urine Bacteria (None) /hpf Hyaline Casts (0-2) /lpf Urine Mucus (None) /hpf - Radiology Data Radiology results: report reviewed, image reviewed Disposition Clinical Impression: Right ureteral calculus, UTI (urinary tract infection) Disposition: ADMITTED IP TO THIS HOSP
[2022-10-09 10:57] LABS: Anisocytosis Slight; Basophils % (A) 0 %; Eosinophils # (A) 0.1 k/uL (0-0.7); Eosinophils % (A) 1 %; Hypochromasia Moderate; Lymphocytes # (A) 0.5 k/uL (1.0-4.8); Lymphocytes % (A) 4 %; MCH 25.3 pg (25.0-35.0); MCHC 31.7 g/dL (31.0-37.0); MCV 79.7 fL (80.0-100.0); Mean Platelet Volume 7.3; Microcytosis Slight; Monocytes # (A) 0.4 k/uL (0-1.0); Monocytes % (A) 3 %; Neutrophils # (A) 11.7 k/uL (1.3-7.7); Neutrophils % (A) 92 %; Platelet Count 265 k/uL (150-450); RBC 5.14 m/uL (3.80-5.40); RDW 18.7 % (11.5-15.5); WBC 12.7 k/uL (3.8-10.6)
[2022-10-09 11:10] LABS: ALT 31 U/L (4-34); AST 45 U/L (14-36); African American GFR (CKD) 69 (>60 ml/min/1.73 sqM); Albumin 4.1 g/dL (3.5-5.0); Alkaline Phosphatase 145 U/L (38-126); Amylase 47 U/L (30-110); Anion Gap 12 mmol/L; Blood Urea Nitrogen 11 mg/dL (7-17); Calcium 8.8 mg/dL (8.4-10.2); Carbon Dioxide 19 mmol/L (22-30); Chloride 109 mmol/L (98-107); Glucose 143 mg/dL (74-99); Lipase 72 U/L (23-300); Non-African American GFR(CKD) 59 (>60 ml/min/1.73 sqM); Potassium 3.8 mmol/L (3.5-5.1); Sodium 140 mmol/L (137-145); Total Bilirubin 0.4 mg/dL (0.2-1.3); Total Protein 6.6 g/dL (6.3-8.2)
[2022-10-09 11:25] LABS: Amorphous Sediment,Urine Rare /hpf; Appearance,Urine Cloudy (Clear); Bacteria,Urine Rare /hpf; Bilirubin,Urine Negative (Negative); Blood,Urine Small (Negative); Color,Urine Yellow; Glucose,Urine (UA) Negative (Negative); Hyaline Casts,Urine 2 /lpf (0-2); Ketones,Urine Negative (Negative); Leukocyte Esterase,Urine Large (Negative); Mucus,Urine Rare /hpf; Nitrite,Urine Negative (Negative); PH, Urine 5.5 (5.0-8.0); Protein,Urine 1+ (Negative); RBC,Urine 26 /hpf (0-5); Specific Gravity,Urine 1.015 (1.001-1.035); Urobilinogen,Urine <2.0 mg/dL (<2.0); WBC,Urine >182 /hpf (0-5)
--- NOTE | 2022-10-09 12:01 | CT ---
EXAMINATION TYPE: CT abdomen pelvis w con CT DLP: 1121 mGycm, Automated exposure control for dose reduction was used. DATE OF EXAM: 10/09/2022 11:38 AM COMPARISON: CT abdomen pelvis most recent from CLINICAL INDICATION:Female, 67 years old with history of RLQ and epigastric pain; Lower abdominal/pel susy pain TECHNIQUE: Axial CT of the abdomen and pelvis. Sagittal and coronal reformats were created on a [employer] workstation. Contrast used:80 mL of Isovue 370 with IV Contrast, (none if empty) Oral contrast used: without Oral Contrast (none if empty) FINDINGS: LOWER CHEST: Unremarkable ABDOMEN LIVER: Unremarkable GALLBLADDER AND BILE DUCTS: Layering gallstone present. PANCREAS: Unremarkable. SPLEEN: Unremarkable. ADRENAL GLANDS: Unremarkable. KIDNEYS AND URETERS: Moderate right hydroureteronephrosis secondary obstructing 6 mm calculus at the ureteropelvic brim. No evidence for left hydronephrosis. Left nonobstructing 2 mm calculi. PELVIS BLADDER: Incompletely distended but grossly unremarkable. REPRODUCTIVE: Unremarkable. ABDOMEN & PELVIS STOMACH AND BOWEL: No evidence of bowel obstruction. Postsurgical changes to the bowel. Small hiatal hernia. PERITONEUM/RETROPERITONEUM: No evidence of pneumoperitoneum or free fluid. VASCULATURE: No evidence of aortic aneurysm. MUSCULOSKELETAL: No acute osseous abnormalities. Moderate disc degeneration changes are present throu ghout the thoracolumbar spine LYMPH NODES: No gross evidence for lymphadenopathy. SOFT TISSUE/ABDOMINAL WALL: Postsurgical changes to the ventral wall with suspected areas of fat infa rct noted. IMPRESSION: 1. Moderate right hydroureteronephrosis secondary obstructing 6 mm calculus at the ureteropelvic leandro m. 2. Cholelithiasis 3. Small hiatal hernia
[2022-10-09] MEDS ORDERED: HYDROcodone/APAP 7.5-325MG 1 EACH TAB PO ONE (12:18)
[2022-10-09] MEDS ORDERED: KETOROLAC 15 MG/ML 1 ML VIAL IVP STA (12:18)
[2022-10-09] MEDS ORDERED: cefTRIAXone IN SWFI 1,000 MG/10 ML SYRINGE IVP STA ×2 (12:20→12:26)
[2022-10-09] MEDS ORDERED: atenoloL 25 MG TAB PO STA ×2 (12:37→18:54)
[2022-10-09] MEDS ORDERED: SPIRONOLACTONE 25 MG TAB PO STA (12:37)
[2022-10-09] MEDS ORDERED: NALOXONE 0.4 MG/ML 1 ML VIAL IV PRN (12:52)
[2022-10-09] MEDS ORDERED: KETOROLAC 15 MG/ML 1 ML VIAL IVP PRN (12:52)
[2022-10-09] MEDS ORDERED: ONDANSETRON 4 MG/2 ML VIAL IVP PRN (12:52)
[2022-10-09] MEDS: SODIUM CHLORIDE 0.9% 1,000 ML IV SCH (14:49)
[2022-10-09] MEDS: MORPHINE SULFATE 4 MG/ML SYRINGE IV PRN (16:21)
[2022-10-09] MEDS ORDERED: hydrALAZINE HCL 20 MG/ML 1 ML VIAL IVP PRN (17:03)
[2022-10-09] MEDS: amLODIPine 5 MG TAB PO SCH (17:16)
--- NOTE | 2022-10-09 18:47 | P.HPIM ---
History of Present Illness This is a pleasant 7 years old female with past medical history of Coronary Artery Disease status post stent , GERD/Reflux, Hyperlipidemia, Hypertension, Osteoarthritis , Rheumatoid Arthritis, hx of kidney stones, incisional hernia, restless leg, hx of urinary incontinence, hx migraines, 2 cardiac stents, lithotripsy. hernia surgery x 2 Patient presents because of right flank pain 10/10 radiating to the right groin about one week in duration associated with nausea vomiting for the last 2 nights and this morning so she decided to call to the emergency room Patient says that she has a history of kidney stone but she denies any dysuria urgency or check in frequency of urination No suprapubic pain or tenderness. Chest some diarrhea as well She denies weakness numbness or dizziness, she has some old has history of migraine. She denies chest peak or dyspnea. She does not follow up with PCP On admission patient was tachycardic with heart rate 114 and blood pressure 171/74 and patient is afebrile. Patient has mild leukocytosis of 12.7, rest of the CBC, BMP, liver enzymes were unremarkable. Urine analysis showing WBC more than 182 and large leukocyte esterase. EKG shows sinus rhythm at [address]-T changes CT of the abdomen and pelvis with contrast showing moderate right hydroureteronephrosis due to her calculus at the ureteropelvic brim, no evidence of left hydronephrosis but there is left nonobstructing 2 mm calculi. Cholelithiasis Review of Systems Review of systems CONSTITUTIONAL: No fever, no malaise, no fatigue. HEENT: No recent visual problems or hearing problems. Denied any sore throat. CARDIOVASCULAR: No orthopnea, PND, no palpitations, no syncope. PULMONARY: No shortness of breath, no cough, no hemoptysis. GASTROINTESTINAL: No abdominal distention. Normoactive bowel sounds. NEUROLOGICAL: No headaches, no weakness, no numbness. HEMATOLOGICAL: Denies any bleeding or petechiae. GENITOURINARY: Denies any burning micturition, frequency, or urgency. MUSCULOSKELETAL/RHEUMATOLOGICAL: Denies any joint pain, swelling, or any muscle pain. ENDOCRINE: Denies any polyuria or polydipsia. Past Medical History Past Medical History: Coronary Artery Disease (CAD), GERD/Reflux, Hyperlipi demia, Hypertension, Osteoarthritis (OA), Rheumatoid Arthritis (RA) Additional Past Medical History / Comment(s): colostomy, hx of fistula with abscess, sx at [facility], hx of colon polyps, hx of kidney stones, incisional hernia, restless leg, states on metformin for weight loss, not diabetes, hx of urinary incontinence, hx migraines History of Any Multi-Drug Resistant Organisms: None Reported Past Surgical History: Heart Catheterization With Stent, Hernia Repair Additional Past Surgical History / Comment(s): colostomy 08/2018, ostomy reversal in 08/14 @ [facility], 2 cardiac stents, lithotripsy. hernia surgery x 2 Past Anesthesia/Blood Transfusion Reactions: Previous Problems w/ Anesthesia Additional Past Anesthesia/Blood Transfusion Reaction / Comment(s): trouble waking up in past Date of Last Stent Placement:: 2008 Past Psychological History: Anxiety, Depression Smoking Status: Never smoker Past Alcohol Use History: None Reported Past Drug Use History: None Reported - Past Family History Mother Family Medical History: No Reported History Medications and Allergies Home Medications Medication Instructions Recorded Confirmed Type Atorvastatin [Lipitor] 40 mg PO HS 07/21/20 10/09/22 History SUMAtriptan succinate [Imitrex] 25 mg PO DAILY PRN 07/21/20 10/09/22 History Spironolactone [Aldactone] 25 mg PO DAILY 07/21/20 10/09/22 History atenoloL 25 mg PO DAILY 07/21/20 10/09/22 History rOPINIRole HCL [Requip] 0.5 mg PO HS 07/21/20 10/09/22 History Ferrous Sulfate [Feosol] 325 mg PO DAILY 10/09/22 10/09/22 History Pantoprazole Sodium 20 mg PO DAILY 10/09/22 10/09/22 History Sertraline [Zoloft] 150 mg PO DAILY 10/09/22 10/09/22 History Solifenacin Succinate [Vesicare] 5 mg PO DAILY 10/09/22 10/09/22 History buPROPion XL [Wellbutrin XL] 300 mg PO DAILY 10/09/22 10/09/22 History Allergies Allergy/AdvReac Type Severity Reaction Status Date / Time amoxicillin Allergy Rash/Hives Verified 10/09/22 11:51 aspirin [From Percodan] Allergy Itching Verified 10/09/22 11:51 hydromorphone [From Dilaudid] Allergy Rash/Hives Verified 10/09/22 11:51 Iodinated Contrast Media Allergy Rash/Hives Verified 10/09/22 11:51 oxycodone [From Percodan] Allergy Itching Verified 10/09/22 11:51 Physical Exam Vitals: Vital Signs Temp Pulse Pulse Resp BP BP Pulse Ox 10/09/22 18:07 153/87 10/09/22 17:17 114 H 171/74 10/09/22 16:46 111 H 176/92 10/09/22 16:24 110 H 20 180/91 91 L 10/09/22 14:46 110 H 20 172/79 96 10/09/22 11:58 100 18 189/99 96 10/09/22 10:53 89 18 188/92 95 10/09/22 09:46 97.5 F L 79 18 198/99 95 Intake and Output 10/09/22 10/09/22 10/09/22 06:59 14:59 22:59 Other: Weight 78.925 kg 78.925 kg GENERAL: The patient is alert and oriented x3, not in any acute distress. Well developed, well nourished. HEENT: Pupils are round and equally reacting to light. EOMI. No scleral icterus. No conjunctival pallor. Normocephalic, atraumatic. No pharyngeal erythema. No thyromegaly. CARDIOVASCULAR: S1 and S2 present. No murmurs, rubs, or gallops. PULMONARY: Chest is clear to auscultation, no wheezing , no crackles. ABDOMEN: Soft, nontender, nondistended, normoactive bowel sounds. No palpable organomegaly. MUSCULOSKELETAL: No joint swelling or deformity. EXTREMITIES: No cyanosis, clubbing, or pedal edema. NEUROLOGICAL: Gross neurological examination did not reveal any focal deficits. SKIN: No rashes. no petechiae. Results CBC & Chem 7: 10/09/22 10:43 10/09/22 10:43 Labs: Abnormal Lab Results - Last 24 Hours (Table) 10/09/22 10/09/22 10/09/22 Range/Units 10:43 10:43 10:43 WBC 12.7 H (3.8-10.6) k/uL MCV 79.7 L (80.0-100.0) fL RDW 18.7 H (11.5-15.5) % Neutrophils # 11.7 H (1.3-7.7) k/uL Lymphocytes # 0.5 L (1.0-4.8) k/uL Chloride 109 H (98-107) mmol/L Carbon Dioxide 19 L (22-30) mmol/L Glucose 143 H (74-99) mg/dL AST 45 H (14-36) U/L Alkaline Phosphatase 145 H (38-126) U/L Urine Appearance Cloudy H (Clear) Urine Protein 1+ H (Negative) Urine Blood Small H (Negative) Ur Leukocyte Esterase Large H (Negative) Urine RBC 26 H (0-5) /hpf Urine WBC >182 H (0-5) /hpf Urine WBC Clumps Many H (None) /hpf Amorphous Sediment Rare H (None) /hpf Urine Bacteria Rare H (None) /hpf Urine Mucus Rare H (None) /hpf Assessment and Plan Assessment: Bilateral kidney stone, 6 mm on the right side with 2 mm on the left side with moderate right hydronephrosis Right renal colic secondary to ureteral stone Abnormal urine analysis suspicious for infection Hypertension, uncontrolled on admission Hyperlipidemia History of osteoarthritis History of GERD History of rheumatoid arthritis History of incisional hernia Restless leg syndrome History of migraine History of urinary incontinence Plan: Continue with IV fluid Pain medication Start antibiotic empirically and check urine culture and procalcitonin Urology consult Resume pressure medication. IV hydralazine when necessary. Monitor blood pressure Labs and medication were reviewed.. Continue same treatment. Continue with symptomatic treatment. Resume home medication. Monitor lytes and vitals. DVT and GI prophylaxis. Further recommendations depends on the clinical course of the patient DVT prophylaxis: Subcutaneous heparin GI Prophylaxis: Pepcid PT/OT: Pending Prognosis is guarded
[2022-10-09] MEDS: ATORVASTATIN 40 MG TAB PO SCH (20:35)
[2022-10-10] MEDS: SODIUM CHLORIDE 0.9% 1,000 ML IV SCH ×4 (00:38→21:08)
[2022-10-10 07:55] LABS: African American GFR (CKD) 30 (>60 ml/min/1.73 sqM); Anion Gap 12 mmol/L; Anisocytosis Slight; Blood Urea Nitrogen 23 mg/dL (7-17); Carbon Dioxide 16 mmol/L (22-30); Chloride 110 mmol/L (98-107); Glucose 81 mg/dL (74-99); HCT 39.3 % (34.0-46.0); HGB 11.9 gm/dL (11.4-16.0); Hypochromasia Marked; MCH 25.1 pg (25.0-35.0); MCHC 30.4 g/dL (31.0-37.0); MCV 82.8 fL (80.0-100.0); Mean Platelet Volume 8.5; Microcytosis Slight; Non-African American GFR(CKD) 26 (>60 ml/min/1.73 sqM); Potassium 4.1 mmol/L (3.5-5.1); RBC 4.74 m/uL (3.80-5.40); RDW 18.7 % (11.5-15.5); Sodium 138 mmol/L (137-145); WBC 21.9 k/uL (3.8-10.6)
[2022-10-10] MEDS ORDERED: atenoloL 25 MG TAB PO SCH (09:00)
[2022-10-10] MEDS: atenoloL 50 MG TAB PO SCH (09:26)
[2022-10-10] MEDS: FERROUS SULFATE 325 MG TAB PO SCH (09:26)
[2022-10-10] MEDS: PANTOPRAZOLE 40 MG TABLET PO SCH (09:26)
[2022-10-10] MEDS: SPIRONOLACTONE 25 MG TAB PO SCH (09:26)
[2022-10-10] MEDS: amLODIPine 5 MG TAB PO SCH (09:26)
[2022-10-10] MEDS: MORPHINE SULFATE 4 MG/ML SYRINGE IV PRN (10:04)
[2022-10-10] MEDS: buPROPion XL 300 MG TAB.ER.24H PO SCH (10:04)
[2022-10-10] MEDS: TROSPIUM CHLORIDE 20 MG TABLET PO SCH (10:04)
[2022-10-10] MEDS: SERTRALINE 100 MG TAB PO SCH (10:04)
--- NOTE | 2022-10-10 10:09 | P.GSCN ---
History of Present Illness Consult date: 10/10/22 History of present illness: 67 yo female with multiple medical problems including a history of kidney stones presents with a one-week history of right flank pain , nausea and voimiting. SHe had a ct scan identifying a 6 mm right ureteral stone at the pelvic brim. She has inflamed looking urine. She was admitted for iv hydration, antibiotics. We have been consulted.She has had no fever. Her wbc on admission were 12k. She is still having pain. She felt chilled last night. She is still tachycardic. She does have a previous history of stones treated in [place]. Review of Systems All systems: negative - Constitutional Denies fever, Denies weight loss - EENT Eyes: denies blurred vision Ears, nose, mouth and throat: Denies dysphagia - Cardiovascular Denies chest pain, Denies shortness of breath - Respiratory Denies cough, Denies 7 - Gastrointestinal Reports as per HPI - Genitourinary Genitourinary: Denies dysuria, Denies hematuria - Integumentary Denies rash, Denies unusual bruising - Neurological Denies headaches, Denies syncope - Hematologic/Lymphatic Denies easy bleeding, Denies easy bruising Past Medical History Past Medical History: Coronary Artery Disease (CAD), GERD/Reflux, Hyper lipidemia, Hypertension, Osteoarthritis (OA), Rheumatoid Arthritis (RA) Additional Past Medical History / Comment(s): colostomy, hx of fistula with abscess, sx at [facility], hx of colon polyps, hx of kidney stones, incisional hernia, restless leg, states on metformin for weight loss, not diabetes, hx of urinary incontinence, hx migraines History of Any Multi-Drug Resistant Organisms: None Reported Past Surgical History: Heart Catheterization With Stent, Hernia Repair Additional Past Surgical History / Comment(s): colostomy 08/2018, ostomy reversal in 08/14 @ [facility], 2 cardiac stents, lithotripsy. hernia surgery x 2 Past Anesthesia/Blood Transfusion Reactions: Previous Problems w/ Anesthesia Additional Past Anesthesia/Blood Transfusion Reaction / Comm: trouble waking up in past Date of Last Stent Placement:: 2008 Past Psychological History: Anxiety, Depression Smoking Status: Never smoker Past Alcohol Use History: None Reported Past Drug Use History: None Reported - Past Family History Mother Family Medical History: No Reported History Medications and Allergies Home Medications Medication Instructions Recorded Confirmed Type Atorvastatin [Lipitor] 40 mg PO HS 07/21/20 10/09/22 History SUMAtriptan succinate [Imitrex] 25 mg PO DAILY PRN 07/21/20 10/09/22 History Spironolactone [Aldactone] 25 mg PO DAILY 07/21/20 10/09/22 History atenoloL 25 mg PO DAILY 07/21/20 10/09/22 History rOPINIRole HCL [Requip] 0.5 mg PO HS 07/21/20 10/09/22 History Ferrous Sulfate [Feosol] 325 mg PO DAILY 10/09/22 10/09/22 History Pantoprazole Sodium 20 mg PO DAILY 10/09/22 10/09/22 History Sertraline [Zoloft] 150 mg PO DAILY 10/09/22 10/09/22 History Solifenacin Succinate [Vesicare] 5 mg PO DAILY 10/09/22 10/09/22 History buPROPion XL [Wellbutrin XL] 300 mg PO DAILY 10/09/22 10/09/22 History Allergies Allergy/AdvReac Type Severity Reaction Status Date / Time amoxicillin Allergy Rash/Hives Verified 10/09/22 11:51 aspirin [From Percodan] Allergy Itching Verified 10/09/22 11:51 hydromorphone [From Dilaudid] Allergy Rash/Hives Verified 10/09/22 11:51 Iodinated Contrast Media Allergy Rash/Hives Verified 10/09/22 11:51 oxycodone [From Percodan] Allergy Itching Verified 10/09/22 11:51 Surgical - Exam Vital Signs Temp Pulse Resp BP Pulse Ox 97.5 F L 79 18 198/99 95 10/09/22 09:46 10/09/22 09:46 10/09/22 09:46 10/09/22 09:46 10/09/22 09:46 - General well developed, well nourished, moderate distress - Eyes PERRL - ENT no hearing loss, no congestion - Neck no masses, trachea midline - Respiratory normal respiratory effort, clear to auscultation - Abdomen Abdomen: soft, non tender, no guarding, no rigid, no rebound - Integumentary no rash, no abnormal pigmentation - Neurologic no disoriented, no combative - Psychiatric oriented to time, oriented to person, oriented to place, speech is normal, memory intact Results - Labs 10/10/22 06:54 10/10/22 06:54 Abnormal Lab Results - Last 24 Hours (Table) 10/09/22 10/09/22 10/09/22 Range/Units 10:43 10:43 10:43 WBC 12.7 H (3.8-10.6) k/uL MCV 79.7 L (80.0-100.0) fL RDW 18.7 H (11.5-15.5) % Neutrophils # 11.7 H (1.3-7.7) k/uL Lymphocytes # 0.5 L (1.0-4.8) k/uL Chloride 109 H (98-107) mmol/L Carbon Dioxide 19 L (22-30) mmol/L Glucose 143 H (74-99) mg/dL AST 45 H (14-36) U/L Alkaline Phosphatase 145 H (38-126) U/L Urine Appearance Cloudy H (Clear) Urine Protein 1+ H (Negative) Urine Blood Small H (Negative) Ur Leukocyte Esterase Large H (Negative) Urine RBC 26 H (0-5) /hpf Urine WBC >182 H (0-5) /hpf Urine WBC Clumps Many H (None) /hpf Amorphous Sediment Rare H (None) /hpf Urine Bacteria Rare H (None) /hpf Urine Mucus Rare H (None) /hpf Diabetes panel 10/09/22 Range/Units 10:43 Sodium 140 (137-145) mmol/L Potassium 3.8 (3.5-5.1) mmol/L Chloride 109 H (98-107) mmol/L Carbon Dioxide 19 L (22-30) mmol/L BUN 11 (7-17) mg/dL Creatinine 0.98 (0.52-1.04) mg/dL Glucose 143 H (74-99) mg/dL Calcium 8.8 (8.4-10.2) mg/dL AST 45 H (14-36) U/L ALT 31 (4-34) U/L Alkaline Phosphatase 145 H (38-126) U/L Total Protein 6.6 (6.3-8.2) g/dL Albumin 4.1 (3.5-5.0) g/dL Calcium panel 10/09/22 Range/Units 10:43 Calcium 8.8 (8.4-10.2) mg/dL Albumin 4.1 (3.5-5.0) g/dL Pituitary panel 10/09/22 Range/Units 10:43 Sodium 140 (137-145) mmol/L Potassium 3.8 (3.5-5.1) mmol/L Chloride 109 H (98-107) mmol/L Carbon Dioxide 19 L (22-30) mmol/L BUN 11 (7-17) mg/dL Creatinine 0.98 (0.52-1.04) mg/dL Glucose 143 H (74-99) mg/dL Calcium 8.8 (8.4-10.2) mg/dL Adrenal panel 10/09/22 Range/Units 10:43 Sodium 140 (137-145) mmol/L Potassium 3.8 (3.5-5.1) mmol/L Chloride 109 H (98-107) mmol/L Carbon Dioxide 19 L (22-30) mmol/L BUN 11 (7-17) mg/dL Creatinine 0.98 (0.52-1.04) mg/dL Glucose 143 H (74-99) mg/dL Calcium 8.8 (8.4-10.2) mg/dL Total Bilirubin 0.4 (0.2-1.3) mg/dL AST 45 H (14-36) U/L ALT 31 (4-34) U/L Alkaline Phosphatase 145 H (38-126) U/L Total Protein 6.6 (6.3-8.2) g/dL Albumin 4.1 (3.5-5.0) g/dL - Imaging CT scan - abdomen: report reviewed, image reviewed CT scan - pelvis: report reviewed, image reviewed Assessment and Plan Assessment: Impression: Right ureteral calculus with obstruction and colic. Probable urinary tract infection. Possible urinary sepsis. Recommendations: Patient will undergo cystoscopy and placement of a right ureteral stent today. At a later date we'll do ureteroscopy stone and stent removal.
[2022-10-10] MEDS ORDERED: SODIUM CHLORIDE 0.9% 1,000 ML IV ONE (10:52)
--- NOTE | 2022-10-10 11:03 | P.PN ---
Subjective This is a pleasant 7 years old female with past medical history of Coronary Artery Disease status post stent , GERD/Reflux, Hyperlipidemia, Hypertension, Osteoarthritis , Rheumatoid Arthritis, hx of kidney stones, incisional hernia, restless leg, hx of urinary incontinence, hx migraines, 2 cardiac stents, lithotripsy. hernia surgery x 2 Patient presents because of right flank pain 10/10 radiating to the right groin about one week in duration associated with nausea vomiting for the last 2 nights and this morning so she decided to call to the emergency room Patient says that she has a history of kidney stone but she denies any dysuria urgency or check in frequency of urination No suprapubic pain or tenderness. Chest some diarrhea as well She denies weakness numbness or dizziness, she has some old has history of migraine. She denies chest peak or dyspnea. She does not follow up with PCP On admission patient was tachycardic with heart rate 114 and blood pressure 171/74 and patient is afebrile. Patient has mild leukocytosis of 12.7, rest of the CBC, BMP, liver enzymes were unremarkable. Urine analysis showing WBC more than 182 and large leukocyte esterase. EKG shows sinus rhythm at [address]-T changes CT of the abdomen and pelvis with contrast showing moderate right hydroureteronephrosis due to her calculus at the ureteropelvic brim, no evidence of left hydronephrosis but there is left nonobstructing 2 mm calculi. Cholelithiasis 10/10/2022 Patient still feels sick with slight improvement She is hemodynamically stable, still tachycardic, afebrile. Leukocytosis is worsened 21.9 thousand, creatinine went up from 0.9 up to 1.9., Check Bladder scan and asked for an nephrology consult Patient remains on ceftriaxone for UTI with evidence of blood culture positive for E. coli, pending final results, currently covered with the same antibiotic Urology of planning for cystoscopy and right ureteral stent placement and later stage cystoscopy with stone and stent removal. Patient on ceftriaxone 2 g daily. Review of systems CONSTITUTIONAL: No fever, no malaise, no fatigue. HEENT: No recent visual problems or hearing problems. Denied any sore throat. CARDIOVASCULAR: No orthopnea, PND, no palpitations, no syncope. PULMONARY: No shortness of breath, no cough, no hemoptysis. GASTROINTESTINAL: No diarrhea, no nausea, no vomiting, no abdominal pain. Normoactive bowel sounds. NEUROLOGICAL: No headaches, no weakness, no numbness. HEMATOLOGICAL: Denies any bleeding or petechiae. Active Medications Generic Name Dose Route Start Last Admin Trade Name Freq PRN Reason Stop Dose Admin Amlodipine Besylate 5 mg 10/09/22 17:15 10/10/22 09:26 Amlodipine 5 Mg Tab PO 5 mg DAILY JAMES Administration Atenolol 50 mg 10/10/22 09:00 10/10/22 09:26 Atenolol 50 Mg Tab PO 50 mg DAILY JAMES Administration Atorvastatin Calcium 40 mg 10/09/22 21:00 10/09/22 20:35 Atorvastatin 40 Mg Tab PO 40 mg HS JAMES Administration Bupropion HCl 300 mg 10/10/22 09:00 10/10/22 10:04 Bupropion Xl 300 Mg Tab.Er.24h PO 300 mg DAILY JAMES Administration Ferrous Sulfate 325 mg 10/10/22 09:00 10/10/22 09:26 Ferrous Sulfate 325 Mg Tab PO 325 mg DAILY JAMES Administration Hydralazine HCl 10 mg 10/09/22 17:03 Hydralazine Hcl 20 Mg/Ml 1 Ml Vial IVP Q6HR PRN Blood Pressure - High Sodium Chloride 1,000 mls @ 130 mls/hr 10/09/22 13:00 10/10/22 07:23 Saline 0.9% IV Not Given .Q7H42M [facility] Ceftriaxone Sodium 2 gm/ 50 mls @ 100 mls/hr 10/11/22 09:00 Sodium Chloride IVPB Q24HR [facility] Morphine Sulfate 4 mg 10/09/22 12:52 10/10/22 10:04 Morphine Sulfate 4 Mg/Ml Syringe IV 4 mg Q4HR PRN Administration Severe Pain (Scale 7 to 10) Morphine Sulfate 2 mg 10/09/22 12:53 Morphine Sulfate 2 Mg/Ml Syringe IV Q4HR PRN Moderate Pain (Scale 4 to 6) Naloxone HCl 0.2 mg 10/09/22 12:52 Naloxone 0.4 Mg/Ml 1 Ml Vial IV Q2M PRN Opioid Reversal Ondansetron HCl 4 mg 10/09/22 12:52 Ondansetron 4 Mg/2 Ml Vial IVP Q8HR PRN Nausea And Vomiting Pantoprazole Sodium 40 mg 10/10/22 07:30 10/10/22 09:26 Pantoprazole 40 Mg Tablet PO 40 mg [id number] JAMES Administration Ropinirole HCl 0.5 mg 10/09/22 21:00 10/09/22 20:36 Ropinirole Hcl 0.25 Mg Tab PO 0.5 mg HS JAMES Administration Sertraline HCl 150 mg 10/10/22 09:00 10/10/22 10:04 Sertraline 100 Mg Tab PO 150 mg DAILY JAMES Administration Spironolactone 25 mg 10/10/22 09:00 10/10/22 09:26 Spironolactone 25 Mg Tab PO 25 mg DAILY JAMES Administration Sumatriptan Succinate 25 mg 10/09/22 12:59 Sumatriptan Succinate 25 Mg Tab PO DAILY PRN Migraine Headache Trospium 20 mg 10/10/22 09:00 10/10/22 10:04 Trospium Chloride 20 Mg Tablet PO 20 mg DAILY JAMES Administration Objective - Vital Signs Vital signs: Vital Signs Temp 97.4 F L 10/10/22 07:00 Pulse 112 H 10/10/22 08:00 Resp 15 10/10/22 08:00 BP 135/65 10/10/22 07:00 Pulse Ox 94 L 10/10/22 07:00 FiO2 Intake & Output 10/09/22 10/10/22 10/10/22 18:59 06:59 18:59 Intake Total 1630 Balance 1630 Weight 78.925 kg Intake: IV 1430 Sodium Chloride 0.9% 1, 1430 000 ml @ 130 mls/hr IV . Q7H42M [facility] Rx#:[id number] Oral 200 Other: Voiding Method Toilet Toilet # Voids 2 - Exam GENERAL: The patient is alert and oriented x3, not in any acute distress. Well developed, well nourished. HEENT: Pupils are round and equally reacting to light. EOMI. No scleral icterus. No conjunctival pallor. Normocephalic, atraumatic. No pharyngeal erythema. No thyromegaly. CARDIOVASCULAR: S1 and S2 present. No murmurs, rubs, or gallops. PULMONARY: Chest is clear to auscultation, no wheezing , no crackles. -ABDOMEN: Soft, right flank tenderness, nondistended, normoactive bowel sounds. No palpable organomegaly. MUSCULOSKELETAL: No joint swelling or deformity. EXTREMITIES: No cyanosis, clubbing, or pedal edema. NEUROLOGICAL: Gross neurological examination did not reveal any focal deficits. SKIN: No rashes. no petechiae. - Labs CBC & Chem 7: 10/10/22 06:54 10/10/22 06:54 Labs: Abnormal Lab Results - Last 24 Hours (Table) 10/09/22 10/09/22 10/10/22 Range/Units 10:43 10:43 06:54 WBC 21.9 H (3.8-10.6) k/uL MCHC 30.4 L (31.0-37.0) g/dL RDW 18.7 H (11.5-15.5) % Plt Count 100 L D (150-450) k/uL Chloride 109 H (98-107) mmol/L Carbon Dioxide 19 L (22-30) mmol/L BUN (7-17) mg/dL Creatinine (0.52-1.04) mg/dL Glucose 143 H (74-99) mg/dL Calcium (8.4-10.2) mg/dL AST 45 H (14-36) U/L Alkaline Phosphatase 145 H (38-126) U/L Urine Appearance Cloudy H (Clear) Urine Protein 1+ H (Negative) Urine Blood Small H (Negative) Ur Leukocyte Esterase Large H (Negative) Urine RBC 26 H (0-5) /hpf Urine WBC >182 H (0-5) /hpf Urine WBC Clumps Many H (None) /hpf Amorphous Sediment Rare H (None) /hpf Urine Bacteria Rare H (None) /hpf Urine Mucus Rare H (None) /hpf 10/10/22 Range/Units 06:54 WBC (3.8-10.6) k/uL MCHC (31.0-37.0) g/dL RDW (11.5-15.5) % Plt Count (150-450) k/uL Chloride 110 H (98-107) mmol/L Carbon Dioxide 16 L (22-30) mmol/L BUN 23 H (7-17) mg/dL Creatinine 1.96 H (0.52-1.04) mg/dL Glucose (74-99) mg/dL Calcium 8.0 L (8.4-10.2) mg/dL AST (14-36) U/L Alkaline Phosphatase (38-126) U/L Urine Appearance (Clear) Urine Protein (Negative) Urine Blood (Negative) Ur Leukocyte Esterase (Negative) Urine RBC (0-5) /hpf Urine WBC (0-5) /hpf Urine WBC Clumps (None) /hpf Amorphous Sediment (None) /hpf Urine Bacteria (None) /hpf Urine Mucus (None) /hpf Microbiology - Last 24 Hours (Table) 10/09/22 13:46 Blood Culture Gram Stain - Preliminary Blood 10/09/22 13:55 Blood Culture Gram Stain - Preliminary Blood
[2022-10-10 11:35] LABS: Band Neutrophils % 8 %; Lymphocytes # (M) 0.44 k/uL (1.0-4.8); Metamyelocytes # (M) 0.44 k/uL (0); Metamyelocytes % 2 %; Monocytes # (M) 0.44 k/uL (0-1.0); Myelocytes # (M) 0.22 k/uL (0); Myelocytes % 1 %; Neutrophils % (M) 87 %; Nucleated Red Blood Cells 0 /100 WBC (0-0); Total Cells Counted 200
[2022-10-10 11:37] LABS: Poikilocytosis (M) Present
[2022-10-10] MEDS ORDERED: PHENYLEPHRINE-0.9% NACL SYG 1,000 MCG/10 ML SYRINGE ONE (12:03)
[2022-10-10] MEDS ORDERED: LIDOCAINE 2% INJ 20 MG/ML (2 ML VIAL) ONE (12:03)
[2022-10-10] MEDS ORDERED: PROPOFOL 10 MG/ML 20 ML VIAL IV ONE (12:03)
[2022-10-10] MEDS ORDERED: fentaNYL (PF) 50 MCG/ML 2 ML AMP ONE (12:03)
[2022-10-10] MEDS ORDERED: MIDAZOLAM 2 MG/2 ML VIAL ONE (12:03)
--- NOTE | 2022-10-10 12:34 | P.OP ---
Date of Procedure: 10/10/22 Preoperative Diagnosis: Right ureteral calculus with obstruction, urinary tract infection with sepsis Postoperative Diagnosis: Same Procedure(s) Performed: Cystoscopy, placement of 6 x 24 double-J catheter right Anesthesia: ALISA Surgeon: hJonny Marie Estimated Blood Loss (ml): 0 Pathology: none sent Condition: stable Disposition: PACU Indications for Procedure: The patient is 67. She has a history of stones. For 1 week she's been attempting to pass a stone. She was in the emergency room yesterday for a 6 mm distal ureteral stone was identified. Her urine looked infected but her white count was only 12,000. She is afebrile. Today her white count jumped to 21,000. Because of persistent pain and elevation a white count a stent will be placed in the right ureter Description of Procedure: Patient brought to the operating suite. Given general anesthesia. Placed lithotomy position with a sterile prep and drape. Cystoscopy with a Foroblique lens and 21-[place] sheath identifies a normal urethra. The ureteral orifices are normal. The bladder mucosa shows cystitis. An 035 wires and passed up the right ureter into the renal pelvis by the stone. I then over the wire pass a 6 x 24 double-J catheter that coils in the renal pelvis, right and in the bladder. The stone is seen in the distal ureter just below the pelvic brim The bladder is drained. The patient is awake and returned recovery room good condition. She'll and tenuous hospitalization. At a later date she will need stone and stent removal as an outpatient.
--- NOTE | 2022-10-10 12:52 | FL ---
Intraoperative/procedural fluoroscopic services were provided for cystoscopy with right ureteral sten t placement. Total fluoroscopy time is 11.2 seconds with a total of 3 submitted images to PACS. Total DAP 1.6155 Gycm2. Please see the operative note for further details.
[2022-10-10] MEDS ORDERED: PHENYLEPHRINE-0.9% NACL SYG 1,000 MCG/10 ML SYRINGE IVP ONE (12:57)
[2022-10-10 15:41] LABS: Platelet Count 100 k/uL (150-450)
[2022-10-10] MEDS: ATORVASTATIN 40 MG TAB PO SCH (21:08)
[2022-10-11] MEDS: SODIUM CHLORIDE 0.9% 1,000 ML IV SCH ×3 (05:44→20:06)
[2022-10-11] MEDS: PANTOPRAZOLE 40 MG TABLET PO SCH (06:31)
--- NOTE | 2022-10-11 07:32 | P.PN ---
Subjective Progress Note Date: 10/11/22 Is in her first postoperative day from a right double-J catheter placed for an obstructing stone, urinary tract infection with sepsis. She feels better. Her vital signs are stable. Her heart rate is down. Objective - Vital Signs Vital signs: Vital Signs Temp 98.4 F 10/11/22 07:00 Pulse 94 10/11/22 07:00 Resp 16 10/11/22 07:00 BP 111/71 10/11/22 07:00 Pulse Ox 91 L 10/11/22 07:00 FiO2 Intake & Output 10/10/22 10/11/22 10/11/22 18:59 06:59 18:59 Intake Total 1000 Output Total 280 Balance 720 Weight 78.925 kg Intake: IV 1000 Output: Urine 275 Estimated Blood Loss 5 Other: Voiding Method Toilet Toilet # Voids 1 4 - Labs CBC & Chem 7: 10/10/22 06:54 10/10/22 06:54 Labs: Abnormal Lab Results - Last 24 Hours (Table) 10/10/22 10/10/22 Range/Units 06:54 06:54 WBC 21.9 H (3.8-10.6) k/uL MCHC 30.4 L (31.0-37.0) g/dL RDW 18.7 H (11.5-15.5) % Plt Count 100 L D (150-450) k/uL Neutrophils # (Manual) 20.80 H (1.3-7.7) k/uL Lymphocytes # (Manual) 0.44 L (1.0-4.8) k/uL Metamyelocytes # (Man) 0.44 H (0) k/uL Myelocytes # (Manual) 0.22 H (0) k/uL Chloride 110 H (98-107) mmol/L Carbon Dioxide 16 L (22-30) mmol/L BUN 23 H (7-17) mg/dL Creatinine 1.96 H (0.52-1.04) mg/dL Calcium 8.0 L (8.4-10.2) mg/dL Microbiology - Last 24 Hours (Table) 10/09/22 10:43 Urine Culture - Preliminary Urine,Clean Catch Gram Neg Bacilli 10/09/22 13:46 Blood Culture Gram Stain - Preliminary Blood 10/09/22 13:55 Blood Culture Gram Stain - Preliminary Blood Assessment and Plan Assessment: Impression: Successful stent placement to relieve obstructed infected urine on the right side. From a urologic standpoint once the cultures back in the oral antibiotics are determine she can go home. She should follow-up in the office in a week or so to be set up for stone and stent removal.
[2022-10-11] MEDS: SPIRONOLACTONE 25 MG TAB PO SCH (09:17)
[2022-10-11] MEDS: FERROUS SULFATE 325 MG TAB PO SCH (09:17)
[2022-10-11] MEDS: TROSPIUM CHLORIDE 20 MG TABLET PO SCH (09:22)
[2022-10-11] MEDS: SERTRALINE 100 MG TAB PO SCH (09:22)
[2022-10-11] MEDS: buPROPion XL 300 MG TAB.ER.24H PO SCH (09:22)
[2022-10-11 11:15] LABS: BUN/Creat Ratio 22.92 Ratio (12.00-20.00); Blood Urea Nitrogen 29.8 mg/dL (9.0-27.0); Calcium 7.6 mg/dL (8.7-10.3); Carbon Dioxide 17.5 mmol/L (21.6-31.8); Chloride 111 mmol/L (96-109); Glucose 74 mg/dL (70-110); Sodium 139 mmol/L (135-145)
[2022-10-11 11:29] LABS: HCT 32.6 % (37.2-46.3); HGB 9.9 d/dL (12.0-15.0); MCH 24.7 pg (27.0-32.0); MCHC 30.4 d/dL (32.0-37.0); MCV 81.3 FL (80.0-97.0); Mean Platelet Volume 10.7 FL (9.5-12.2); NRBC Per 100 WBC 0 X 10*3/uL (0.00-0.01); Platelet Count 101 X 10*3/uL (140-440); RBC 4.01 X 10*6/uL (4.10-5.20); RDW 20.1 % (11.5-14.5); WBC 19.51 X 10*3/uL (4.50-10.00)
[2022-10-11 12:40] LABS: Basophils # (M) 0 X 10*3/uL (0.00-0.10); Eosinophils # (M) 0 X 10*3/uL (0.04-0.35); Lymphocytes # (M) 0.78 X 10*3/uL (0.90-5.00); Monocytes # (M) 0.78 X 10*3/uL (0.20-1.00); Neutrophils # (M) 17.95 X 10*3/uL (1.80-7.70); Neutrophils % (M) 92 %
[2022-10-11] MEDS: atenoloL 50 MG TAB PO SCH (12:56)
[2022-10-11] MEDS: amLODIPine 5 MG TAB PO SCH (12:56)
--- NOTE | 2022-10-11 13:26 | P.NPCON ---
History of Present Illness - Reason for Consult acute renal failure - History of Present Illness Patient is a 67-year-old female with history of nephrolithiasis who was admitted to the hospital with complaints of right flank pain, nausea and vomiting. Computed tomography scan showed 6 mm right ureteral stone. Patient has been seen by urology and is status post cystoscopy and placement of double-J catheter on the right. Urine and blood cultures are growing gram-negative bacilli Blood pressure had been low, improved today. Currently maintained on IV fluids. Serum creatinine increased to 1.9 yesterday from 0.9 and it is down to 1.3 today. Urine output is not accurately charted. Review of Systems As per HPI Past Medical History Past Medical History: Coronary Artery Disease (CAD), GERD/Reflux, Hyperlipidemia, Hypertension, Osteoarthritis (OA), Rheumatoid Arthritis (RA) Additional Past Medical History / Comment(s): colostomy, hx of fistula with abscess, sx at [facility], hx of colon polyps, hx of kidney stones, incisional hernia, restless leg, states on metformin for weight loss, not diabetes, hx of urinary incontinence, hx migraines History of Any Multi-Drug Resistant Organisms: None Reported Past Surgical History: Heart Catheterization With Stent, Hernia Repair Additional Past Surgical History / Comment(s): colostomy 08/2018, ostomy reversal in 08/14 @ [facility], 2 cardiac stents, lithotripsy. hernia surgery x 2 Past Anesthesia/Blood Transfusion Reactions: Previous Problems w/ Anesthesia Additional Past Anesthesia/Blood Transfusion Reaction / Comment(s): trouble waking up in past Date of Last Stent Placement:: 2008 Past Psychological History: Anxiety, Depression Smoking Status: Never smoker Past Alcohol Use History: None Reported Past Drug Use History: None Reported - Past Family History Mother Family Medical History: No Reported History Medications and Allergies Home Medications Medication Instructions Recorded Confirmed Type Atorvastatin [Lipitor] 40 mg PO HS 07/21/20 10/09/22 History SUMAtriptan succinate [Imitrex] 25 mg PO DAILY PRN 07/21/20 10/09/22 History Spironolactone [Aldactone] 25 mg PO DAILY 07/21/20 10/09/22 History atenoloL 25 mg PO DAILY 07/21/20 10/09/22 History rOPINIRole HCL [Requip] 0.5 mg PO HS 07/21/20 10/09/22 History Ferrous Sulfate [Feosol] 325 mg PO DAILY 10/09/22 10/09/22 History Pantoprazole Sodium 20 mg PO DAILY 10/09/22 10/09/22 History Sertraline [Zoloft] 150 mg PO DAILY 10/09/22 10/09/22 History Solifenacin Succinate [Vesicare] 5 mg PO DAILY 10/09/22 10/09/22 History buPROPion XL [Wellbutrin XL] 300 mg PO DAILY 10/09/22 10/09/22 History Allergies Allergy/AdvReac Type Severity Reaction Status Date / Time amoxicillin Allergy Rash/Hives Verified 10/09/22 11:51 aspirin [From Percodan] Allergy Itching Verified 10/09/22 11:51 hydromorphone [From Dilaudid] Allergy Rash/Hives Verified 10/09/22 11:51 Iodinated Contrast Media Allergy Rash/Hives Verified 10/09/22 11:51 oxycodone [From Percodan] Allergy Itching Verified 10/09/22 11:51 Physical Exam Vitals: Vital Signs Temp Pulse Pulse Resp BP BP Pulse Ox 10/11/22 07:00 98.4 F 94 16 111/71 91 L 10/11/22 02:30 98.7 F 97 19 111/64 98 10/10/22 22:23 95 18 10/10/22 19:10 97.4 F L 81 16 134/78 97 10/10/22 15:24 95 16 104/59 95 10/10/22 14:45 102 H 16 95/60 95 10/10/22 14:30 94 16 93/56 93 L 10/10/22 14:15 95 16 102/63 94 L 10/10/22 14:00 98.1 F 94 93 16 95/57 94 L 10/10/22 13:45 93 16 95/49 95 10/10/22 13:30 92 16 92/46 96 Intake and Output 10/10/22 10/11/22 10/11/22 22:59 06:59 14:59 Other: Voiding Method Toilet # Voids 3 4 Patient is awake, comfortable, no acute distress Examination of the heart S1 and S2 Examination of the lungs bilateral breath sounds are heard Abdomen is soft mild tenderness on the right side Examination lower extremity shows no evidence of edema MEDICAL TECHNOLOGIST exam grossly intact Results - Lab Results Most recent lab results Calcium 7.6 mg/dL (8.7-10.3) L 10/11/22 06:37 10/11/22 06:37 10/11/22 06:37 Assessment and Plan Assessment: 1. Acute kidney injury, ATN, nonoliguric secondary to hypotension and sepsis. Renal function currently improved. UA suggestive of UTI. Computed tomography scan shows moderate right hydronephrosis with 6 mm alkalosis 2. Right hydronephrosis status post cystoscopy and right double-J catheter placement 3. Gram-negative bacteremia 4. Sepsis with UTI 5. Non-gap metabolic acidosis secondary to acute kidney injury and IV fluids Plan: Continue IV fluids Continue IV antibiotics Add oral sodium bicarb Repeat labs in a.m. [facility] Thank you for the consultation. We will continue to follow the patient with you during her hospitalization.
[2022-10-11] MEDS: ACETAMINOPHEN TAB 500 MG TAB PO PRN (14:18)
[2022-10-11] MEDS: ATORVASTATIN 40 MG TAB PO SCH (20:05)
[2022-10-11] MEDS: SODIUM BICARBONATE TAB 650 MG TAB PO SCH (20:06)
--- NOTE | 2022-10-11 21:46 | P.PN ---
Subjective This is a pleasant 7 years old female with past medical history of Coronary Artery Disease status post stent , GERD/Reflux, Hyperlipidemia, Hypertension, Osteoarthritis , Rheumatoid Arthritis, hx of kidney stones, incisional hernia, restless leg, hx of urinary incontinence, hx migraines, 2 cardiac stents, lithotripsy. hernia surgery x 2 Patient presents because of right flank pain 10/10 radiating to the right groin about one week in duration associated with nausea vomiting for the last 2 nights and this morning so she decided to call to the emergency room Patient says that she has a history of kidney stone but she denies any dysuria urgency or check in frequency of urination No suprapubic pain or tenderness. Chest some diarrhea as well She denies weakness numbness or dizziness, she has some old has history of migraine. She denies chest peak or dyspnea. She does not follow up with PCP On admission patient was tachycardic with heart rate 114 and blood pressure 171/74 and patient is afebrile. Patient has mild leukocytosis of 12.7, rest of the CBC, BMP, liver enzymes were unremarkable. Urine analysis showing WBC more than 182 and large leukocyte esterase. EKG shows sinus rhythm at [address]-T changes CT of the abdomen and pelvis with contrast showing moderate right hydroureteronephrosis due to her calculus at the ureteropelvic brim, no evidence of left hydronephrosis but there is left nonobstructing 2 mm calculi. Cholelithiasis 10/10/2022 Patient still feels sick with slight improvement She is hemodynamically stable, still tachycardic, afebrile. Leukocytosis is worsened 21.9 thousand, creatinine went up from 0.9 up to 1.9., Check Bladder scan and asked for an nephrology consult Patient remains on ceftriaxone for UTI with evidence of blood culture positive for E. coli, pending final results, currently covered with the same antibiotic Urology of planning for cystoscopy and right ureteral stent placement and later stage cystoscopy with stone and stent removal. Patient on ceftriaxone 2 g daily. 10/11/2022 patient status post stent placement today postoperative day number: She still feels somewhat tired but improving She was on ceftriaxone and normal saline with 30 Creatinine improving down to 1.3 and able to see coming down slowly 19.5. Hemoglobin went down today 11.9 down to 9.9 most likely secondary to sepsis and hemoglobin delusion as well as platelet count 101. Urine culture showing sensitive E. coli blood culture is positive for gram- negative bacilli and pending final results Consulted infectious disease team today for further antibiotic recommendations Possible discharge in 24-48 hours Objective - Vital Signs Vital signs: Vital Signs Temp 97.6 F 10/11/22 14:19 Pulse 94 10/11/22 14:19 Resp 16 10/11/22 14:19 BP 138/83 10/11/22 14:19 Pulse Ox 94 L 10/11/22 14:19 FiO2 Intake & Output 10/11/22 10/11/22 10/12/22 06:59 18:59 06:59 Intake Total 264 Balance 264 Intake: Oral 264 Other: Voiding Method Toilet # Voids 4 3 - Exam GENERAL: The patient is alert and oriented x3, not in any acute distress. Well developed, well nourished. HEENT: Pupils are round and equally reacting to light. EOMI. No scleral icterus. No conjunctival pallor. Normocephalic, atraumatic. No pharyngeal erythema. No thyromegaly. CARDIOVASCULAR: S1 and S2 present. No murmurs, rubs, or gallops. PULMONARY: Chest is clear to auscultation, no wheezing , no crackles. -ABDOMEN: Soft, right flank tenderness, nondistended, normoactive bowel sounds. No palpable organomegaly. MUSCULOSKELETAL: No joint swelling or deformity. EXTREMITIES: No cyanosis, clubbing, or pedal edema. NEUROLOGICAL: Gross neurological examination did not reveal any focal deficits. SKIN: No rashes. no petechiae. - Labs CBC & Chem 7: 10/11/22 06:37 10/11/22 06:37 Labs: Abnormal Lab Results - Last 24 Hours (Table) 10/11/22 10/11/22 Range/Units 06:37 06:37 WBC 19.51 H (4.50-10.00) X 10*3/uL RBC 4.01 L (4.10-5.20) X 10*6/uL Hgb 9.9 L (12.0-15.0) d/dL Hct 32.6 L (37.2-46.3) % MCH 24.7 L (27.0-32.0) pg MCHC 30.4 L (32.0-37.0) d/dL RDW 20.1 H (11.5-14.5) % Plt Count 101 L (140-440) X 10*3/uL Lymphocytes # (Manual) 0.78 L (0.90-5.00) X 10*3/uL Eosinophils # (Manual) 0 L (0.04-0.35) X 10*3/uL Chloride 111 H (96-109) mmol/L Carbon Dioxide 17.5 L (21.6-31.8) mmol/L BUN 29.8 H (9.0-27.0) mg/dL Est GFR (CKD-EPI) 45 L (>=60) BUN/Creatinine Ratio 22.92 H (12.00-20.00) Ratio Calcium 7.6 L (8.7-10.3) mg/dL Microbiology - Last 24 Hours (Table) 10/09/22 10:43 Urine Culture - Final Urine,Clean Catch Escherichia coli 10/09/22 13:46 Blood Culture Gram Stain - Preliminary Blood Blood Culture - Preliminary Gram Neg Bacilli 10/09/22 13:55 Blood Culture Gram Stain - Preliminary Blood Blood Culture - Preliminary Gram Neg Bacilli Assessment and Plan Assessment: Bilateral kidney stone, 6 mm on the right side with 2 mm on the left side with moderate right hydronephrosis Right renal colic secondary to ureteral stone Abnormal urine analysis suspicious for infection Hypertension, uncontrolled on admission Hyperlipidemia History of osteoarthritis History of GERD History of rheumatoid arthritis History of incisional hernia Restless leg syndrome History of migraine History of urinary incontinence Plan: Continue with IV fluid Pain medication Continue with ceftriaxone, follow-up blood culture. ID team consult Urology consult [facility] Resume pressure medication. IV hydralazine when necessary. Monitor blood pressure Labs and medication were reviewed.. Continue same treatment. Continue with s ymptomatic treatment. Resume home medication. Monitor lytes and vitals. DVT and GI prophylaxis. Further recommendations depends on the clinical course of the patient DVT prophylaxis: Subcutaneous heparin GI Prophylaxis: Pepcid PT/OT: Pending Prognosis is guarded
[2022-10-12] MEDS: SODIUM CHLORIDE 0.9% 1,000 ML IV SCH ×3 (03:37→20:56)
[2022-10-12] MEDS: PANTOPRAZOLE 40 MG TABLET PO SCH (06:24)
[2022-10-12] MEDS: MORPHINE SULFATE 4 MG/ML SYRINGE IV PRN (06:28)
[2022-10-12] MEDS: TROSPIUM CHLORIDE 20 MG TABLET PO SCH (09:27)
[2022-10-12] MEDS: atenoloL 50 MG TAB PO SCH (09:27)
[2022-10-12] MEDS: SPIRONOLACTONE 25 MG TAB PO SCH (09:27)
[2022-10-12] MEDS: FERROUS SULFATE 325 MG TAB PO SCH (09:27)
[2022-10-12] MEDS: SODIUM BICARBONATE TAB 650 MG TAB PO SCH ×2 (09:27→20:55)
[2022-10-12] MEDS: SERTRALINE 100 MG TAB PO SCH (09:27)
[2022-10-12] MEDS: buPROPion XL 300 MG TAB.ER.24H PO SCH (09:28)
[2022-10-12 11:05] LABS: HGB 9.8 d/dL (12.0-15.0); MCH 24.1 pg (27.0-32.0); MCHC 29.7 d/dL (32.0-37.0); MCV 81.3 FL (80.0-97.0); Mean Platelet Volume 11.6 FL (9.5-12.2); NRBC Per 100 WBC 0 X 10*3/uL (0.00-0.01); Platelet Count 114 X 10*3/uL (140-440); RBC 4.06 X 10*6/uL (4.10-5.20); RDW 19.9 % (11.5-14.5)
[2022-10-12 13:15] LABS: BUN/Creat Ratio 22.11 Ratio (12.00-20.00); Blood Urea Nitrogen 19.9 mg/dL (9.0-27.0); Calcium 7.9 mg/dL (8.7-10.3); Chloride 111 mmol/L (96-109); Glucose 86 mg/dL (70-110); Potassium 3.8 mmol/L (3.5-5.5); Sodium 139 mmol/L (135-145)
--- NOTE | 2022-10-12 13:38 | P.PN ---
Subjective This is a pleasant 7 years old female with past medical history of Coronary Artery Disease status post stent , GERD/Reflux, Hyperlipidemia, Hypertension, Osteoarthritis , Rheumatoid Arthritis, hx of kidney stones, incisional hernia, restless leg, hx of urinary incontinence, hx migraines, 2 cardiac stents, lithotripsy. hernia surgery x 2 Patient presents because of right flank pain 10/10 radiating to the right groin about one week in duration associated with nausea vomiting for the last 2 nights and this morning so she decided to call to the emergency room Patient says that she has a history of kidney stone but she denies any dysuria urgency or check in frequency of urination No suprapubic pain or tenderness. Chest some diarrhea as well She denies weakness numbness or dizziness, she has some old has history of migraine. She denies chest peak or dyspnea. She does not follow up with PCP On admission patient was tachycardic with heart rate 114 and blood pressure 171/74 and patient is afebrile. Patient has mild leukocytosis of 12.7, rest of the CBC, BMP, liver enzymes were unremarkable. Urine analysis showing WBC more than 182 and large leukocyte esterase. EKG shows sinus rhythm at [address]-T changes CT of the abdomen and pelvis with contrast showing moderate right hydroureteronephrosis due to her calculus at the ureteropelvic brim, no evidence of left hydronephrosis but there is left nonobstructing 2 mm calculi. Cholelithiasis 10/10/2022 Patient still feels sick with slight improvement She is hemodynamically stable, still tachycardic, afebrile. Leukocytosis is worsened 21.9 thousand, creatinine went up from 0.9 up to 1.9., Check Bladder scan and asked for an nephrology consult Patient remains on ceftriaxone for UTI with evidence of blood culture positive for E. coli, pending final results, currently covered with the same antibiotic Urology of planning for cystoscopy and right ureteral stent placement and later stage cystoscopy with stone and stent removal. Patient on ceftriaxone 2 g daily. 10/11/2022 patient status post stent placement today postoperative day number: She still feels somewhat tired but improving She was on ceftriaxone and normal saline with 30 Creatinine improving down to 1.3 and able to see coming down slowly 19.5. Hemoglobin went down today 11.9 down to 9.9 most likely secondary to sepsis and hemoglobin delusion as well as platelet count 101. Urine culture showing sensitive E. coli blood culture is positive for gram- negative bacilli and pending final results Consulted infectious disease team today for further antibiotic recommendations Possible discharge in 24-48 hours 10/12/2022 Patients with pyelonephritis and bacteremia with culture growing E. coli in both urine and blood or blood sensitivity still pending Also patient still has significant leukocytosis 18.2. Patient still needs IV antibiotics with close monitoring. ID team were consulted Other labs are reviewed available stable, hemoglobin 9.8 compared to 9.8 yesterday, it is stable, it was 11.9 and 13 on admission, hemoglobin drops more than we may consider further workup as inpatient. Platelet count is stable at 114. Blood pressure and heart rate are good therefore I think we can lower her IV fluids to 75 mL/h Patient tolerated to follow-up with Dr. Martino upon discharge in one week for removal of stone and stent from her right ureteral. Objective - Vital Signs Vital signs: Vital Signs Temp 98.3 F 10/12/22 07:00 Pulse 92 10/12/22 07:00 Resp 16 10/12/22 07:00 BP 146/77 10/12/22 07:00 Pulse Ox 91 L 10/12/22 07:00 FiO2 Intake & Output 10/11/22 10/12/22 10/12/22 18:59 06:59 18:59 Intake Total 264 Balance 264 Intake: Oral 264 Other: Voiding Method Toilet # Voids 3 2 - Exam GENERAL: The patient is alert and oriented x3, not in any acute distress. Well developed, well nourished. HEENT: Pupils are round and equally reacting to light. EOMI. No scleral icterus. No conjunctival pallor. Normocephalic, atraumatic. No pharyngeal erythema. No thyromegaly. CARDIOVASCULAR: S1 and S2 present. No murmurs, rubs, or gallops. PULMONARY: Chest is clear to auscultation, no wheezing , no crackles. -ABDOMEN: Soft, right flank tenderness, nondistended, normoactive bowel sounds. No palpable organomegaly. MUSCULOSKELETAL: No joint swelling or deformity. EXTREMITIES: No cyanosis, clubbing, or pedal edema. NEUROLOGICAL: Gross neurological examination did not reveal any focal deficits. SKIN: No rashes. no petechiae. - Labs CBC & Chem 7: 08/18/23 06:28 10/12/22 06:28 Labs: Abnormal Lab Results - Last 24 Hours (Table) 10/12/22 10/12/22 Range/Units 06:28 06:28 WBC 18.20 H (4.50-10.00) X 10*3/uL RBC 4.06 L (4.10-5.20) X 10*6/uL Hgb 9.8 L (12.0-15.0) d/dL Hct 33.0 L (37.2-46.3) % MCH 24.1 L (27.0-32.0) pg MCHC 29.7 L (32.0-37.0) d/dL RDW 19.9 H (11.5-14.5) % Plt Count 114 L (140-440) X 10*3/uL Chloride 111 H (96-109) mmol/L Carbon Dioxide 18.0 L (21.6-31.8) mmol/L BUN/Creatinine Ratio 22.11 H (12.00-20.00) Ratio Calcium 7.9 L (8.7-10.3) mg/dL Microbiology - Last 24 Hours (Table) 10/09/22 13:55 Blood Culture Gram Stain - Final Blood Blood Culture - Final Escherichia coli 10/09/22 13:46 Blood Culture Gram Stain - Final Blood Blood Culture - Final Escherichia coli 10/09/22 10:43 Urine Culture - Final Urine,Clean Catch Escherichia coli Assessment and Plan Assessment: Bilateral kidney stone, 6 mm on the right side with 2 mm on the left side with moderate right hydronephrosis Right renal colic secondary to ureteral stone Abnormal urine analysis suspicious for infection Hypertension, uncontrolled on admission Hyperlipidemia History of osteoarthritis History of GERD History of rheumatoid arthritis History of incisional hernia Restless leg syndrome History of migraine History of urinary incontinence Plan: Continue with IV fluid Pain medication Continue with ceftriaxone, follow-up blood culture. ID team consult Urology consult [facility] Resume pressure medication. IV hydralazine when necessary. Monitor blood pressure Labs and medication were reviewed.. Continue same treatment. Continue with symptomatic treatment. Resume home medication. Monitor lytes and vitals. DVT and GI prophylaxis. Further recommendations depends on the clinical course of the patient DVT prophylaxis: Subcutaneous heparin GI Prophylaxis: Pepcid PT/OT: Pending Prognosis is guarded
[2022-10-12 14:11] LABS: Basophils % (A) 0.2 %; Eosinophils % (A) 0.9 %; Lymphocytes % (A) 3.5 %; Monocytes % (A) 3.3 %; Neutrophils % (A) 91.3 %
[2022-10-12] MEDS: ATORVASTATIN 40 MG TAB PO SCH (20:55)
[2022-10-12] MEDS: ACETAMINOPHEN TAB 500 MG TAB PO PRN (21:00)
[2022-10-12] MEDS: SUMAtriptan succinate 25 MG TAB PO PRN (21:31)
--- NOTE | 2022-10-12 22:44 | P.CONS ---
History of Present Illness - Reason for Consult Consult date: 10/12/22 Bacteremia Requesting physician: Rafiq E Sheet - Chief Complaint Abdominal pain x few days - History of Present Illness Patient is a 67-year-old female presenting to the hospital 4 days ago for evaluation of abdominal pain patient pain has been to the right lower quadrant and left upper quadrant area patient was describing the pain to be 7-8 of 10 in addition to have associated nausea no vomiting no diarrhea or constipation or presentation to the hospital. Her white count of 12.7 which is up to 19.5 yesterday. Creatinine has been mildly elevated to have a positive UA patient did have a CT abdominal pelvis moderate right hydronephrosis secondary to obstructing 6 mm calculus at the ureteropelvic brim patient has been evaluated by urology and the patient is status post cystoscopy with placement of double-J catheter patient did have blood cultures drawn came back positive with gram-negative bacilli that has prompted this infectious disease consultation, patient still complaining of feeling weak tired and no energy has been very nauseated but no vomiting still complains of right-sided abdominal pain no diarrhea no urinary symptoms at this point Review of Systems Positive point and negatives has been mentioned in the HPI, complete review of systems was performed and all other systems are negative Past Medical History Past Medical History: Coronary Artery Disease (CAD), GERD/Reflux, Hyperlipidemia, Hypertension, Osteoarthritis (OA), Rheumatoid Arthritis (RA) Additional Past Medical History / Comment(s): colostomy, hx of fistula with abscess, sx at [facility], hx of colon polyps, hx of kidney stones, incisional hernia, restless leg, states on metformin for weight loss, not diabetes, hx of urinary incontinence, hx migraines History of Any Multi-Drug Resistant Organisms: None Reported Past Surgical History: Heart Catheterization With Stent, Hernia Repair Additional Past Surgical History / Comment(s): colostomy 08/2018, ostomy reversal in 08/14 @ [facility], 2 cardiac stents, lithotripsy. hernia surgery x 2 Past Anesthesia/Blood Transfusion Reactions: Previous Problems w/ Anesthesia Additional Past Anesthesia/Blood Transfusion Reaction / Comm: trouble waking up in past Date of Last Stent Placement:: 2008 Past Psychological History: Anxiety, Depression Smoking Status: Never smoker Past Alcohol Use History: None Reported Past Drug Use History: None Reported - Past Family History Mother Family Medical History: No Reported History Medications and Allergies Home Medications Medication Instructions Recorded Confirmed Type Atorvastatin [Lipitor] 40 mg PO HS 07/21/20 10/09/22 History SUMAtriptan succinate [Imitrex] 25 mg PO DAILY PRN 07/21/20 10/09/22 History Spironolactone [Aldactone] 25 mg PO DAILY 07/21/20 10/09/22 History rOPINIRole HCL [Requip] 0.5 mg PO HS 07/21/20 10/09/22 History Ferrous Sulfate [Iron (65 MG 325 mg PO DAILY 10/09/22 10/09/22 History Elemental)] Pantoprazole Sodium 20 mg PO DAILY 10/09/22 10/09/22 History Sertraline [Zoloft] 150 mg PO DAILY 10/09/22 10/09/22 History Solifenacin Succinate [Vesicare] 5 mg PO DAILY 10/09/22 10/09/22 History buPROPion XL [Wellbutrin XL] 300 mg PO DAILY 10/09/22 10/09/22 History atenoloL [Tenormin] 50 mg PO DAILY 30 Days #30 tab 10/15/22 Rx cefUROXime axetiL [Cefuroxime] 500 mg PO BID 10 Days #20 tab 10/15/22 Rx hydrALAZINE HCL [Apresoline] 25 mg PO TID 30 Days #90 tab 10/15/22 Rx Ciprofloxacin HCl [Cipro] 500 mg PO Q12HR #14 tablet 11/06/22 Rx Sulfamethox-Tmp 800-160Mg [Bactrim 1 tab PO Q12HR 7 Days #14 tab 11/07/22 Rx DS 800-160 mg] Allergies Allergy/AdvReac Type Severity Reaction Status Date / Time amoxicillin Allergy Rash/Hives Verified 11/06/22 14:41 aspirin [From Percodan] Allergy Itching Verified 11/06/22 14:41 hydromorphone [From Dilaudid] Allergy Rash/Hives Verified 11/06/22 14:41 Iodinated Contrast Media Allergy Rash/Hives Verified 11/06/22 14:41 oxycodone [From Percodan] Allergy Itching Verified 11/06/22 14:41 Physical Exam Vitals: Vital Signs Temp Pulse Resp BP BP Pulse Ox 10/12/22 07:00 98.3 F 92 16 146/77 91 L 10/12/22 02:33 97.9 F 93 15 152/70 94 L 10/11/22 20:05 91 17 10/11/22 19:48 98.1 F 91 15 162/70 94 L 10/11/22 14:19 97.6 F 94 16 138/83 94 L Intake and Output 10/11/22 10/12/22 10/12/22 22:59 06:59 14:59 Intake Total 264 Balance 264 Intake: Oral 264 Other: Voiding Method Toilet # Voids 2 2 GENERAL DESCRIPTION: Elderly female lying in bed, no distress. No tachypnea or accessory muscle of respiration use. HEENT: Shows Pallor , no scleral icterus. Oral mucous membrane is dry. No pharyngeal erythema or thrush NECK: Trachea central, no thyromegaly. LUNGS: Unlabored breathing. Clear to auscultation anteriorly. No wheeze or crackle. HEART: S1, S2, regular rate and rhythm. No loud murmur ABDOMEN: Soft, no tenderness EXTREMITIES: No edema of feet. SKIN: No rash, no masses palpable. NEUROLOGICAL: The patient is awake, alert, oriented x3, mood and affect normal. Results CBC & Chem 7: 10/15/22 06:47 10/15/22 06:47 Labs: Abnormal Lab Results - Last 24 Hours (Table) 10/11/22 10/12/22 Range/Units 06:37 06:28 WBC 19.51 H 18.20 H (4.50-10.00) X 10*3/uL RBC 4.01 L 4.06 L (4.10-5.20) X 10*6/uL Hgb 9.9 L 9.8 L (12.0-15.0) d/dL Hct 32.6 L 33.0 L (37.2-46.3) % MCH 24.7 L 24.1 L (27.0-32.0) pg MCHC 30.4 L 29.7 L (32.0-37.0) d/dL RDW 20.1 H 19.9 H (11.5-14.5) % Plt Count 101 L 114 L (140-440) X 10*3/uL Lymphocytes # (Manual) 0.78 L (0.90-5.00) X 10*3/uL Eosinophils # (Manual) 0 L (0.04-0.35) X 10*3/uL Microbiology - Last 24 Hours (Table) 10/09/22 10:43 Urine Culture - Final Urine,Clean Catch Escherichia coli 10/09/22 13:46 Blood Culture Gram Stain - Preliminary Blood Blood Culture - Preliminary Gram Neg Bacilli 10/09/22 13:55 Blood Culture Gram Stain - Preliminary Blood Blood Culture - Preliminary Gram Neg Bacilli Assessment and Plan (1) E coli bacteremia Status: Acute Code(s): R78.81 - BACTEREMIA; B96.20 - UNSP ESCHERICHIA COLI THE CAUSE OF DISEASES [facility]SD [facility] SNOMED Code(s): 522638425263 (2) UTI (urinary tract infection) Status: Acute Code(s): N39.0 - URINARY TRACT INFECTION, SITE NOT SPECIFIED SNOMED Code(s): 39845612 Plan: 1patient with gram-negative bacteremia source is secondary to complicated UTI in this patient with evidence of right sided hydroureteronephrosis secondary to obstructing calculus in this patient who is s/p renal cystoscopy and double-J catheter placement. 2we will keep the patient on Rocephin 2 g daily for another 24 to 48 hours as the patient still have elevated white count and waiting for the clinical condition to stabilize. We will follow on clinical condition and cultures to further adjust medication if needed Thank you for this consultation we will follow the patient along with you Dictation was produced using [employer] dictation software. please excuse any grammatical, word or spelling errors. Time with Patient: Greater than 30
--- NOTE | 2022-10-13 01:45 | P.PN ---
Subjective Patient is seen for f/u for COOKIE Renal function has improved. Maintained on IV hydration. C/o pain in abdomen but better from admission. Objective - Vital Signs Vital signs: Vital Signs Temp 98.1 F 10/12/22 19:20 Pulse 85 10/12/22 19:20 Resp 18 10/12/22 19:20 BP 158/83 10/12/22 19:20 Pulse Ox 93 L 10/12/22 19:20 FiO2 Intake & Output 10/12/22 10/12/22 10/13/22 06:59 18:59 06:59 Other: Voiding Method Toilet Toilet # Voids 2 2 - Exam Patient is awake, comfortable Lungs are clear CVS S1 and S2 Abdomen is soft with mild tenderness mid abdomen Extremities show no edema [employer] exam is grossly intact. - Labs CBC & Chem 7: 10/12/22 06:28 10/12/22 06:28 Labs: Abnormal Lab Results - Last 24 Hours (Table) 10/12/22 10/12/22 Range/Units 06:28 06:28 WBC 18.20 H (4.50-10.00) X 10*3/uL RBC 4.06 L (4.10-5.20) X 10*6/uL Hgb 9.8 L (12.0-15.0) d/dL Hct 33.0 L (37.2-46.3) % MCH 24.1 L (27.0-32.0) pg MCHC 29.7 L (32.0-37.0) d/dL RDW 19.9 H (11.5-14.5) % Plt Count 114 L (140-440) X 10*3/uL Chloride 111 H (96-109) mmol/L Carbon Dioxide 18.0 L (21.6-31.8) mmol/L BUN/Creatinine Ratio 22.11 H (12.00-20.00) Ratio Calcium 7.9 L (8.7-10.3) mg/dL Microbiology - Last 24 Hours (Table) 10/09/22 13:55 Blood Culture Gram Stain - Final Blood Blood Culture - Final Escherichia coli 10/09/22 13:46 Blood Culture Gram Stain - Final Blood Blood Culture - Final Escherichia coli Assessment and Plan Assessment: 1. Acute kidney injury, ATN, nonoliguric secondary to hypotension and sepsis. Renal function currently improved. UA suggestive of UTI. Computed tomography scan shows moderate right hydronephrosis with 6 mm calculus 2. Right hydronephrosis status post cystoscopy and right double-J catheter placement 3. Gram-negative bacteremia 4. Sepsis with UTI 5. Non-gap metabolic acidosis secondary to acute kidney injury and IV fluids Plan: Continue IV fluids Continue IV antibiotics Continue oral sodium bicarb Repeat labs in a.m.
[2022-10-13] MEDS: PANTOPRAZOLE 40 MG TABLET PO SCH (06:18)
[2022-10-13] MEDS: SPIRONOLACTONE 25 MG TAB PO SCH (08:22)
[2022-10-13] MEDS: FERROUS SULFATE 325 MG TAB PO SCH (08:22)
[2022-10-13] MEDS: SERTRALINE 100 MG TAB PO SCH (08:22)
[2022-10-13] MEDS: SODIUM BICARBONATE TAB 650 MG TAB PO SCH ×2 (08:22→20:31)
[2022-10-13] MEDS: atenoloL 50 MG TAB PO SCH (08:22)
[2022-10-13] MEDS: TROSPIUM CHLORIDE 20 MG TABLET PO SCH (08:22)
[2022-10-13] MEDS: buPROPion XL 300 MG TAB.ER.24H PO SCH (08:23)
[2022-10-13] MEDS: MORPHINE SULFATE 2 MG/ML SYRINGE IV PRN ×2 (08:27→21:59)
--- NOTE | 2022-10-13 09:02 | P.PN ---
Subjective Patient is seen in follow-up for acute kidney injury. Renal function improved. Receiving IV fluids. Hemodynamically stable. No chest pain or shortness of breath. Admits to good urine output. Vital signs are stable. General: No acute distress. HEENT: Head exam is unremarkable. LUNGS: No audible rhonchi or wheezes. HEART: Rate and Rhythm are regular. ABDOMEN: Nontender. EXTREMITITES: No edema. Objective - Vital Signs Vital signs: Vital Signs Temp 97.9 F 10/13/22 07:26 Pulse 82 10/13/22 07:26 Resp 14 10/13/22 07:26 BP 164/84 10/13/22 07:26 Pulse Ox 93 L 10/13/22 08:51 FiO2 Intake & Output 10/12/22 10/13/22 10/13/22 18:59 06:59 18:59 Other: Voiding Method Toilet Toilet Toilet # Voids 2 4 - Labs CBC & Chem 7: 10/12/22 06:28 10/12/22 06:28 Labs: Abnormal Lab Results - Last 24 Hours (Table) 10/12/22 10/12/22 Range/Units 06:28 06:28 WBC 18.20 H (4.50-10.00) X 10*3/uL RBC 4.06 L (4.10-5.20) X 10*6/uL Hgb 9.8 L (12.0-15.0) d/dL Hct 33.0 L (37.2-46.3) % MCH 24.1 L (27.0-32.0) pg MCHC 29.7 L (32.0-37.0) d/dL RDW 19.9 H (11.5-14.5) % Plt Count 114 L (140-440) X 10*3/uL Chloride 111 H (96-109) mmol/L Carbon Dioxide 18.0 L (21.6-31.8) mmol/L BUN/Creatinine Ratio 22.11 H (12.00-20.00) Ratio Calcium 7.9 L (8.7-10.3) mg/dL Microbiology - Last 24 Hours (Table) 10/09/22 13:55 Blood Culture Gram Stain - Final Blood Blood Culture - Final Escherichia coli 10/09/22 13:46 Blood Culture Gram Stain - Final Blood Blood Culture - Final Escherichia coli Assessment and Plan Plan: Assessment: 1. Acute kidney injury secondary to ATN secondary to severe sepsis. Resolved. 2. Right-sided hydronephrosis status post cystoscopy with ureteral stent placement. 3. Severe sepsis secondary to E. coli UTI and bacteremia on antibiotics. 4. Metabolic acidosis secondary to acute kidney injury and IV fluids. On oral bicarbonate. 5. Benign hypertension. Plan: Maintain IV fluids. Decrease rate to 50 mL an hour. Add hydralazine 25 mg 3 times daily. Hold for systolic blood pressure less than 120. Avoid nephrotoxins. Continue to monitor renal function and urine output.
[2022-10-13] MEDS: SODIUM CHLORIDE 0.9% 1,000 ML IV SCH (11:49)
[2022-10-13] MEDS: hydrALAZINE HCL 25 MG TAB PO SCH ×3 (11:49→20:32)
--- NOTE | 2022-10-13 13:54 | P.PN ---
Subjective Progress Note Date: 10/13/22 7 years old female with past medical history of Coronary Artery Disease status post stent , GERD/Reflux, Hyperlipidemia, Hypertension, Osteoarthritis , Rheumatoid Arthritis, hx of kidney stones, incisional hernia, restless leg, hx of urinary incontinence, hx migraines, 2 cardiac stents, lithotripsy. hernia surgery x 2 Patient presents because of right flank pain 10/10 radiating to the right groin about one week in duration associated with nausea vomiting for the last 2 nights and this morning so she decided to call to the emergency room Patient says that she has a history of kidney stone but she denies any dysuria urgency or check in frequency of urination No suprapubic pain or tenderness. Chest some diarrhea as well She denies weakness numbness or dizziness, she has some old has history of mi graine. She denies chest peak or dyspnea. She does not follow up with PCP On admission patient was tachycardic with heart rate 114 and blood pressure 171/74 and patient is afebrile. Patient has mild leukocytosis of 12.7, rest of the CBC, BMP, liver enzymes were unremarkable. Urine analysis showing WBC more than 182 and large leukocyte esterase. EKG shows sinus rhythm at [address]-T changes CT of the abdomen and pelvis with contrast showing moderate right hydroureteronephrosis due to her calculus at the ureteropelvic brim, no evidence of left hydronephrosis but there is left nonobstructing 2 mm calculi. Cholelithiasis 10/10/2022 Patient still feels sick with slight improvement She is hemodynamically stable, still tachycardic, afebrile. Leukocytosis is worsened 21.9 thousand, creatinine went up from 0.9 up to 1.9., Check Bladder scan and asked for an nephrology consult Patient remains on ceftriaxone for UTI with evidence of blood culture positive for E. coli, pending final results, currently covered with the same antibiotic Urology of planning for cystoscopy and right ureteral stent placement and later stage cystoscopy with stone and stent removal. Patient on ceftriaxone 2 g daily. 10/11/2022 patient status post stent placement today postoperative day number: She still feels somewhat tired but improving She was on ceftriaxone and normal saline with 30 Creatinine improving down to 1.3 and able to see coming down slowly 19.5. Hemoglobin went down today 11.9 down to 9.9 most likely secondary to sepsis and hemoglobin delusion as well as platelet count 101. Urine culture showing sensitive E. coli blood culture is positive for gram- negative bacilli and pending final results Consulted infectious disease team today for further antibiotic recommendations Possible discharge in 24-48 hours 10/12/2022 Patients with pyelonephritis and bacteremia with culture growing E. coli in both urine and blood or blood sensitivity still pending Also patient still has significant leukocytosis 18.2. Patient still needs IV antibiotics with close monitoring. ID team were consulted Other labs are reviewed available stable, hemoglobin 9.8 compared to 9.8 yesterday, it is stable, it was 11.9 and 13 on admission, hemoglobin drops more than we may consider further workup as inpatient. Platelet count is stable at 114. Blood pressure and heart rate are good therefore I think we can lower her IV fluids to 75 mL/h Patient tolerated to follow-up with Dr. Martino upon discharge in one week for removal of stone and stent from her right ureteral. 10/13/2022 Patient seen and evaluated bedside, continue patient on IV antibiotic, follow up on CBC, patient denies fever or abdominal pain does complain of generalized fatigue Objective - Vital Signs Vital signs: Vital Signs Temp 97.9 F 10/13/22 07:26 Pulse 82 10/13/22 07:26 Resp 14 10/13/22 07:26 BP 164/84 10/13/22 07:26 Pulse Ox 93 L 10/13/22 08:51 FiO2 Intake & Output 10/12/22 10/13/22 10/13/22 18:59 06:59 18:59 Intake Total 0 Balance 0 Intake: Oral 0 Other: Voiding Method Toilet Toilet Toilet # Voids 2 4 - Exam PHYSICAL EXAMINATION: GENERAL: The patient is alert and oriented x3, not in any acute distress. Well developed, well nourished. HEENT: Pupils are round and equally reacting to light. EOMI. No scleral icterus. No conjunctival pallor. Normocephalic, atraumatic. No pharyngeal erythema. No thyromegaly. CARDIOVASCULAR: S1 and S2 present. No murmurs, rubs, or gallops. PULMONARY: Chest is clear to auscultation, no wheezing or crackles. ABDOMEN: Soft, nontender, nondistended, normoactive bowel sounds. No palpable organomegaly. MUSCULOSKELETAL: No joint swelling or deformity. EXTREMITIES: No cyanosis, clubbing, or pedal edema. NEUROLOGICAL: Gross neurological examination did not reveal any focal deficits. SKIN: No rashes. - Labs CBC & Chem 7: 10/12/22 06:28 10/12/22 06:28 Labs: Microbiology - Last 24 Hours (Table) 10/09/22 13:55 Blood Culture Gram Stain - Final Blood Blood Culture - Final Escherichia coli 10/09/22 13:46 Blood Culture Gram Stain - Final Blood Blood Culture - Final Escherichia coli Assessment and Plan Assessment: Assessment: * Complicated urinary tract infection Bilateral kidney stone, 6 mm on the right side with 2 mm on the left side with moderate right hydronephrosis * Right renal colic secondary to ureteral stone * Acute pyelonephritis * E. coli bacteremia * Hypertension, uncontrolled on admission * Hyperlipidemia * History of osteoarthritis * History of GERD * History of rheumatoid arthritis * History of incisional hernia * Restless leg syndrome * History of migraine * History of urinary incontinence Plan: * In regards to urinary tract infection continue patient on IV Rocephin, blood cultures and urine culture positive for E. coli. Infectious disease following * In regards to sepsis, continue patient on IV fluid, continue IV antibiotic * In regards to acute kidney injury, patient seen by nephrology, continue with fluid resuscitation * In regards to hypertension continue patient on atenolol, hydralazine * Continue SCDs for DVT prophylaxis * Continue with pain control
[2022-10-13] MEDS: ATORVASTATIN 40 MG TAB PO SCH (20:31)
--- NOTE | 2022-10-13 23:21 | P.PN ---
Subjective Progress Note Date: 10/13/22 Principal diagnosis: E.coli UTI and Bacteremia Patient is a 67-year-old female presenting to the hospital 4 days ago for evaluation of abdominal pain patient pain has been to the right lower quadrant ,CT abdominal pelvis moderate right hydronephrosis,patient is status p ost cystoscopy with placement of double-J catheter placement patient blood cultures came back positive with gram-negative bacilli. On today's evaluation that is 10/13/2022 patient denies having any fever or any chills still complaining of not feeling that well and did have some abdominal discomfort nausea but no vomiting no chest pain shortness of breath or cough or diarrhea. Patient did have white count of 18.20 creatinine of 0.9 as of yesterday no blood work was done today blood and urine has been finalized with E. coli that is a sensitive pathogen. Objective - Vital Signs Vital signs: Vital Signs Temp 97.9 F 10/13/22 07:26 Pulse 82 10/13/22 07:26 Resp 14 10/13/22 07:26 BP 164/84 10/13/22 07:26 Pulse Ox 93 L 10/13/22 08:51 FiO2 Intake & Output 10/12/22 10/13/22 10/13/22 18:59 06:59 18:59 Intake Total 0 Balance 0 Intake: Oral 0 Other: Voiding Method Toilet Toilet Toilet # Voids 2 4 - Exam GENERAL DESCRIPTION: Elderly female up in the room in no distress RESPIRATORY SYSTEM: Unlabored breathing , decreased breath sounds at bases HEART: S1 S2 regular rate and rhythm ,no loud murmurs ABDOMEN: Soft , no tenderness EXTREMITIES: No edema feet - Labs CBC & Chem 7: 10/12/22 06:28 10/12/22 06:28 Labs: Abnormal Lab Results - Last 24 Hours (Table) 10/12/22 10/12/22 Range/Units 06:28 06:28 WBC 18.20 H (4.50-10.00) X 10*3/uL RBC 4.06 L (4.10-5.20) X 10*6/uL Hgb 9.8 L (12.0-15.0) d/dL Hct 33.0 L (37.2-46.3) % MCH 24.1 L (27.0-32.0) pg MCHC 29.7 L (32.0-37.0) d/dL RDW 19.9 H (11.5-14.5) % Plt Count 114 L (140-440) X 10*3/uL Chloride 111 H (96-109) mmol/L Carbon Dioxide 18.0 L (21.6-31.8) mmol/L BUN/Creatinine Ratio 22.11 H (12.00-20.00) Ratio Calcium 7.9 L (8.7-10.3) mg/dL Microbiology - Last 24 Hours (Table) 10/09/22 13:55 Blood Culture Gram Stain - Final Blood Blood Culture - Final Escherichia coli 10/09/22 13:46 Blood Culture Gram Stain - Final Blood Blood Culture - Final Escherichia coli Assessment and Plan (1) E coli bacteremia Current Visit: Yes Status: Acute Code(s): R78.81 - BACTEREMIA; B96.20 - UNSP ESCHERICHIA COLI THE CAUSE OF DISEASES CLASSD [facility] SNOMED Code(s): 661760600448 (2) UTI (urinary tract infection) Current Visit: Yes Status: Acute Code(s): N39.0 - URINARY TRACT INFECTION, SITE NOT SPECIFIED SNOMED Code(s): 96565014 Plan: 1patient with gram-negative bacteremia source is secondary to complicated UTI in this patient with evidence of right sided hydroureteronephrosis secondary to obstructing calculus in this patient who is s/p renal cystoscopy and double-J catheter placement. 2Patient still complaining of not feeling well and the white count was elevated patient to continue with the Rocephin 2 g daily we will recheck her CBC and CRP with a.m. lab and monitor clinical course closely Dictation was produced using [employer] dictation software. please excuse any grammatical, word or spelling errors. Time with Patient: Less than 30
[2022-10-14] MEDS: SODIUM CHLORIDE 0.9% 1,000 ML IV SCH (04:05)
[2022-10-14] MEDS: PANTOPRAZOLE 40 MG TABLET PO SCH (06:04)
[2022-10-14] MEDS: FERROUS SULFATE 325 MG TAB PO SCH (08:58)
[2022-10-14] MEDS: TROSPIUM CHLORIDE 20 MG TABLET PO SCH (08:58)
[2022-10-14] MEDS: buPROPion XL 300 MG TAB.ER.24H PO SCH (08:58)
[2022-10-14] MEDS: atenoloL 50 MG TAB PO SCH (08:58)
[2022-10-14] MEDS: SERTRALINE 100 MG TAB PO SCH (08:58)
[2022-10-14] MEDS: SPIRONOLACTONE 25 MG TAB PO SCH (08:58)
[2022-10-14] MEDS: MORPHINE SULFATE 2 MG/ML SYRINGE IV PRN (08:58)
[2022-10-14] MEDS: SODIUM BICARBONATE TAB 650 MG TAB PO SCH ×2 (08:58→20:16)
[2022-10-14] MEDS: hydrALAZINE HCL 25 MG TAB PO SCH ×3 (08:59→20:16)
[2022-10-14 09:47] LABS: Anisocytosis Slight; HCT 34.2 % (34.0-46.0); HGB 10.8 gm/dL (11.4-16.0); Hypochromasia Moderate; MCHC 31.6 g/dL (31.0-37.0); MCV 79.1 fL (80.0-100.0); Mean Platelet Volume 9.4; Microcytosis Slight; RBC 4.33 m/uL (3.80-5.40); RDW 18.5 % (11.5-15.5); WBC 7.7 k/uL (3.8-10.6)
[2022-10-14 09:53] LABS: Platelet Count 127 k/uL (150-450)
[2022-10-14 10:22] LABS: African American GFR (CKD) >90 (>60 ml/min/1.73 sqM); Anion Gap 8 mmol/L; Blood Urea Nitrogen 9 mg/dL (7-17); Calcium 7.5 mg/dL (8.4-10.2); Carbon Dioxide 18 mmol/L (22-30); Chloride 111 mmol/L (98-107); Glucose 80 mg/dL (74-99); Magnesium 1.4 mg/dL (1.6-2.3); Non-African American GFR(CKD) 89 (>60 ml/min/1.73 sqM); Potassium 3.6 mmol/L (3.5-5.1); Sodium 137 mmol/L (137-145)
[2022-10-14] MEDS ORDERED: SODIUM BICARB 8.4% 50 ML SYR (1 MEQ/ML) IV STA (11:46)
[2022-10-14] MEDS ORDERED: POTASSIUM CHLORIDE ER 20 MEQ TAB.ER PO STA (11:46)
--- NOTE | 2022-10-14 11:46 | P.PN ---
Subjective Patient is seen in follow-up for acute kidney injury. Renal function at baseline. Receiving IV fluids. Hemodynamically stable. No chest pain or shortness of breath. Admits to good urine output. Vital signs are stable. General: No acute distress. HEENT: Head exam is unremarkable. LUNGS: No audible rhonchi or wheezes. HEART: Rate and Rhythm are regular. ABDOMEN: Nontender. EXTREMITITES: No edema. Objective - Vital Signs Vital signs: Vital Signs Temp 98.1 F 10/14/22 07:08 Pulse 81 10/14/22 07:08 Resp 19 10/14/22 07:08 BP 152/83 10/14/22 07:08 Pulse Ox 100 10/14/22 09:20 FiO2 Intake & Output 10/13/22 10/14/22 10/14/22 18:59 06:59 18:59 Intake Total 118 Balance 118 Intake: Oral 118 Other: Voiding Method Toilet Toilet Toilet # Voids 4 8 # Bowel Movements 0 - Labs CBC & Chem 7: 10/14/22 08:06 10/14/22 08:06 Labs: Abnormal Lab Results - Last 24 Hours (Table) 10/14/22 10/14/22 Range/Units 08:06 08:06 Hgb 10.8 L (11.4-16.0) gm/dL MCV 79.1 L (80.0-100.0) fL RDW 18.5 H (11.5-15.5) % Plt Count 127 L (150-450) k/uL Chloride 111 H (98-107) mmol/L Carbon Dioxide 18 L (22-30) mmol/L Calcium 7.5 L (8.4-10.2) mg/dL Magnesium 1.4 L (1.6-2.3) mg/dL Assessment and Plan Plan: Assessment: 1. Acute kidney injury secondary to ATN secondary to severe sepsis. Resolved. 2. Right-sided hydronephrosis status post cystoscopy with ureteral stent placement. 3. Severe sepsis secondary to E. coli UTI and bacteremia on antibiotics. 4. Metabolic acidosis secondary to acute kidney injury and IV fluids. On oral bicarbonate. Stable. 5. Benign hypertension. Stable. Plan: Maintain gentle IV hydration. Avoid nephrotoxins. Continue to monitor renal function and urine output.
--- NOTE | 2022-10-14 11:59 | P.PN ---
Subjective Progress Note Date: 10/14/22 7 years old female with past medical history of Coronary Artery Disease status post stent , GERD/Reflux, Hyperlipidemia, Hypertension, Osteoarthritis , Rheumatoid Arthritis, hx of kidney stones, incisional hernia, restless leg, hx of urinary incontinence, hx migraines, 2 cardiac stents, lithotripsy. hernia surgery x 2 Patient presents because of right flank pain 10/10 radiating to the right groin about one week in duration associated with nausea vomiting for the last 2 nights and this morning so she decided to call to the emergency room Patient says that she has a history of kidney stone but she denies any dysuria urgency or check in frequency of urination No suprapubic pain or tenderness. Chest some diarrhea as well She denies weakness numbness or dizziness, she has some old has history of mi graine. She denies chest peak or dyspnea. She does not follow up with PCP On admission patient was tachycardic with heart rate 114 and blood pressure 171/74 and patient is afebrile. Patient has mild leukocytosis of 12.7, rest of the CBC, BMP, liver enzymes were unremarkable. Urine analysis showing WBC more than 182 and large leukocyte esterase. EKG shows sinus rhythm at [address]-T changes CT of the abdomen and pelvis with contrast showing moderate right hydroureteronephrosis due to her calculus at the ureteropelvic brim, no evidence of left hydronephrosis but there is left nonobstructing 2 mm calculi. Cholelithiasis 10/10/2022 Patient still feels sick with slight improvement She is hemodynamically stable, still tachycardic, afebrile. Leukocytosis is worsened 21.9 thousand, creatinine went up from 0.9 up to 1.9., Check Bladder scan and asked for an nephrology consult Patient remains on ceftriaxone for UTI with evidence of blood culture positive for E. coli, pending final results, currently covered with the same antibiotic Urology of planning for cystoscopy and right ureteral stent placement and later stage cystoscopy with stone and stent removal. Patient on ceftriaxone 2 g daily. 10/11/2022 patient status post stent placement today postoperative day number: She still feels somewhat tired but improving She was on ceftriaxone and normal saline with 30 Creatinine improving down to 1.3 and able to see coming down slowly 19.5. Hemoglobin went down today 11.9 down to 9.9 most likely secondary to sepsis and hemoglobin delusion as well as platelet count 101. Urine culture showing sensitive E. coli blood culture is positive for gram- negative bacilli and pending final results Consulted infectious disease team today for further antibiotic recommendations Possible discharge in 24-48 hours 10/12/2022 Patients with pyelonephritis and bacteremia with culture growing E. coli in both urine and blood or blood sensitivity still pending Also patient still has significant leukocytosis 18.2. Patient still needs IV antibiotics with close monitoring. ID team were consulted Other labs are reviewed available stable, hemoglobin 9.8 compared to 9.8 yesterday, it is stable, it was 11.9 and 13 on admission, hemoglobin drops more than we may consider further workup as inpatient. Platelet count is stable at 114. Blood pressure and heart rate are good therefore I think we can lower her IV fluids to 75 mL/h Patient tolerated to follow-up with Dr. Martino upon discharge in one week for removal of stone and stent from her right ureteral. 10/13/2022 Patient seen and evaluated bedside, continue patient on IV antibiotic, follow up on CBC, patient denies fever or abdominal pain does complain of generalized fatigue 10/14/2022 patient seen and evaluated bedside. CBC reviewed, trending down within normal limits. Patient noted to have low magnesium which will be replaced. Does complain of abdominal discomfort however has improved denies fever or chills Objective - Vital Signs Vital signs: Vital Signs Temp 98.1 F 10/14/22 07:08 Pulse 81 10/14/22 07:08 Resp 19 10/14/22 07:08 BP 152/83 10/14/22 07:08 Pulse Ox 100 10/14/22 09:20 FiO2 Intake & Output 10/13/22 10/14/22 10/14/22 18:59 06:59 18:59 Intake Total 118 Balance 118 Intake: Oral 118 Other: Voiding Method Toilet Toilet Toilet # Voids 4 8 # Bowel Movements 0 - Exam PHYSICAL EXAMINATION: GENERAL: The patient is alert and oriented x3, not in any acute distress. Well developed, well nourished. HEENT: Pupils are round and equally reacting to light. EOMI. No scleral icterus. No conjunctival pallor. Normocephalic, atraumatic. No pharyngeal erythema. No thyromegaly. CARDIOVASCULAR: S1 and S2 present. No murmurs, rubs, or gallops. PULMONARY: Chest is clear to auscultation, no wheezing or crackles. ABDOMEN: Soft, nontender, nondistended, normoactive bowel sounds. No palpable organomegaly. MUSCULOSKELETAL: No joint swelling or deformity. EXTREMITIES: No cyanosis, clubbing, or pedal edema. NEUROLOGICAL: Gross neurological examination did not reveal any focal deficits. SKIN: No rashes. - Labs CBC & Chem 7: 10/14/22 08:06 10/14/22 08:06 Labs: Abnormal Lab Results - Last 24 Hours (Table) 10/14/22 10/14/22 Range/Units 08:06 08:06 Hgb 10.8 L (11.4-16.0) gm/dL MCV 79.1 L (80.0-100.0) fL RDW 18.5 H (11.5-15.5) % Plt Count 127 L (150-450) k/uL Chloride 111 H (98-107) mmol/L Carbon Dioxide 18 L (22-30) mmol/L Calcium 7.5 L (8.4-10.2) mg/dL Magnesium 1.4 L (1.6-2.3) mg/dL Assessment and Plan Assessment: Assessment: * Complicated urinary tract infection Bilateral kidney stone, 6 mm on the right side with 2 mm on the left side with moderate right hydronephrosis * Right renal colic secondary to ureteral stone * Acute pyelonephritis * E. coli bacteremia * Hypertension, uncontrolled on admission * Hyperlipidemia * History of osteoarthritis * History of GERD * History of rheumatoid arthritis * History of incisional hernia * Restless leg syndrome * History of migraine * History of urinary incontinence Plan: * In regards to urinary tract infection continue patient on IV Rocephin day 4, blood cultures and urine culture positive for E. coli. Infectious disease following * In regards to sepsis, continue patient on IV fluid, continue IV antibiotic * In regards to acute kidney injury, patient seen by nephrology, continue with fluid resuscitation * In regards to hypertension continue patient on atenolol, hydralazine * Continue SCDs for DVT prophylaxis * Continue with pain control as needed morphine ordered
[2022-10-14] MEDS: MAGNESIUM SULFATE-D5W PMX 1 GM in DEXTROSE/WATER 1 100ML.BAG IVPB SCH ×2 (12:52→14:23)
[2022-10-14 14:21] VITALS: RESP 16
[2022-10-14] MEDS: ATORVASTATIN 40 MG TAB PO SCH (20:16)
[2022-10-14] MEDS ORDERED: MELATONIN 3 MG TABLET PO PRN (20:21)
[2022-10-15] MEDS: SODIUM CHLORIDE 0.9% 1,000 ML IV SCH (01:00)
[2022-10-15] MEDS: SUMAtriptan succinate 25 MG TAB PO PRN (02:24)
[2022-10-15] MEDS: MORPHINE SULFATE 2 MG/ML SYRINGE IV PRN (04:17)
[2022-10-15] MEDS: PANTOPRAZOLE 40 MG TABLET PO SCH (05:31)
[2022-10-15] MEDS: FERROUS SULFATE 325 MG TAB PO SCH (08:03)
[2022-10-15] MEDS: atenoloL 50 MG TAB PO SCH (08:03)
[2022-10-15] MEDS: hydrALAZINE HCL 25 MG TAB PO SCH (08:03)
[2022-10-15] MEDS: SPIRONOLACTONE 25 MG TAB PO SCH (08:03)
[2022-10-15] MEDS: TROSPIUM CHLORIDE 20 MG TABLET PO SCH (08:04)
[2022-10-15] MEDS: SERTRALINE 100 MG TAB PO SCH (08:04)
[2022-10-15] MEDS: SODIUM BICARBONATE TAB 650 MG TAB PO SCH (08:05)
[2022-10-15] MEDS: MORPHINE SULFATE 4 MG/ML SYRINGE IV PRN (08:05)
[2022-10-15] MEDS: buPROPion XL 300 MG TAB.ER.24H PO SCH (08:05)
--- NOTE | 2022-10-15 08:54 | P.PN ---
Subjective Progress Note Date: 10/14/22 Principal diagnosis: E.coli UTI and Bacteremia Patient is a 67-year-old female presenting to the hospital 4 days ago for evaluation of abdominal pain patient pain has been to the right lower quadrant ,CT abdominal pelvis moderate right hydronephrosis,patient is status p ost cystoscopy with placement of double-J catheter placement patient blood cultures came back positive with gram-negative bacilli. On today's evaluation that is 10/14/2022, patient remains to be afebrile, the patient is breathing comfortably on room air denies any chest pain shortness of breath or cough right-sided pain has improved some nausea but no vomiting no abdominal pain or diarrhea. The patient white count normalized down to 7.7 creatinine 0.70 blood and urine culture with an E. coli that is a sensitive pathogen Objective - Vital Signs Vital signs: Vital Signs Temp 98.1 F 10/14/22 19:20 Pulse 74 10/14/22 19:20 Resp 16 10/14/22 19:20 BP 139/74 10/14/22 19:20 Pulse Ox 96 10/14/22 19:20 FiO2 Intake & Output 10/14/22 10/14/22 10/15/22 06:59 18:59 06:59 Other: Voiding Method Toilet Toilet Toilet # Voids 8 5 - Exam GENERAL DESCRIPTION: Elderly female up in the room in no distress RESPIRATORY SYSTEM: Unlabored breathing , decreased breath sounds at bases HEART: S1 S2 regular rate and rhythm ,no loud murmurs ABDOMEN: Soft , no tenderness EXTREMITIES: No edema feet - Labs CBC & Chem 7: 10/14/22 08:06 10/14/22 08:06 Labs: Abnormal Lab Results - Last 24 Hours (Table) 10/14/22 10/14/22 Range/Units 08:06 08:06 Hgb 10.8 L (11.4-16.0) gm/dL MCV 79.1 L (80.0-100.0) fL RDW 18.5 H (11.5-15.5) % Plt Count 127 L (150-450) k/uL Chloride 111 H (98-107) mmol/L Carbon Dioxide 18 L (22-30) mmol/L Calcium 7.5 L (8.4-10.2) mg/dL Magnesium 1.4 L (1.6-2.3) mg/dL Assessment and Plan (1) E coli bacteremia Current Visit: Yes Status: Acute Code(s): R78.81 - BACTEREMIA; B96.20 - UNSP ESCHERICHIA COLI THE CAUSE OF DISEASES CLASSD [id number] SNOMED Code(s): 979858224314 (2) UTI (urinary tract infection) Current Visit: Yes Status: Acute Code(s): N39.0 - URINARY TRACT INFECTION, SITE NOT SPECIFIED SNOMED Code(s): 15081556 Plan: 1patient with gram-negative bacteremia source is secondary to complicated UTI in this patient with evidence of right sided hydroureteronephrosis secondary to obstructing calculus in this patient who is s/p renal cystoscopy and double-J catheter placement. 2patient bloody urine culture has been finalized with E. coli that is sensitive pathogen and the patient white count has normalized, patient is on Rocephin finishing therapy with oral Ceftin or Cipro x10 days to finish her course of th erapy Dictation was produced using [employer] software. please excuse any grammatical, word or spelling errors. Time with Patient: Less than 30
[2022-10-15] MEDS ORDERED: CIPROFLOXACIN HCL 250 MG TAB PO SCH (10:30)
[2022-10-15 10:54] LABS: HCT 33.6 % (37.2-46.3); HGB 10.3 d/dL (12.0-15.0); MCH 24.4 pg (27.0-32.0); MCHC 30.7 d/dL (32.0-37.0); MCV 79.6 FL (80.0-97.0); Mean Platelet Volume 11.2 FL (9.5-12.2); NRBC Per 100 WBC 0 X 10*3/uL (0.00-0.01); Platelet Count 182 X 10*3/uL (140-440); RBC 4.22 X 10*6/uL (4.10-5.20); RDW 19.7 % (11.5-14.5); WBC 6.23 X 10*3/uL (4.50-10.00)
[2022-10-15 11:01] LABS: Magnesium 1.8 mg/dL (1.5-2.4)
[2022-10-15 11:02] LABS: BUN/Creat Ratio 8.29 Ratio (12.00-20.00); Blood Urea Nitrogen 5.8 mg/dL (9.0-27.0); Calcium 7.8 mg/dL (8.7-10.3); Carbon Dioxide 23.3 mmol/L (21.6-31.8); Chloride 108 mmol/L (96-109); Glucose 98 mg/dL (70-110); Potassium 3.4 mmol/L (3.5-5.5); Sodium 141 mmol/L (135-145)
[2022-10-15] MEDS ORDERED: POTASSIUM CHLORIDE ER 20 MEQ TAB.ER PO STA (11:03)
--- NOTE | 2022-10-15 11:15 | P.DS ---
Providers Date of admission: 10/10/22 08:14 Expected date of discharge: 10/15/22 Attending physician: Rafiq Taylor MD Consults: 10/09/22 12:52 Consult Physician Urgent Consulting Provider: Jhonny Marie Consult Reason/Comments: Right ureteral calculus, UTI Do you want consulting provider notified?: Already Contacted 10/10/22 08:12 Consult Physician Urgent Consulting Provider: Radha Oscar Consult Reason/Comments: elena Do you want consulting provider notified?: Yes 10/11/22 12:30 Consult Physician Urgent Consulting Provider: Anthony Sims Consult Reason/Comments: bacteremia Do you want consulting provider notified?: Yes Primary care physician: [facility] Course: 67 years old female with past medical history of Coronary Artery Disease status post stent , GERD/Reflux, Hyperlipidemia, Hypertension, Osteoarthritis , Rheumatoid Arthritis, hx of kidney stones, incisional hernia, restless leg, hx of urinary incontinence, hx migraines, 2 cardiac stents, lithotripsy. hernia surgery x 2 Patient presents because of right flank pain 10/10 radiating to the right groin about one week in duration associated with nausea vomiting for the last 2 nights and this morning so she decided to call to the emergency room Patient says that she has a history of kidney stone but she denies any dysuria urgency or check in frequency of urination No suprapubic pain or tenderness. Chest some diarrhea as well She denies weakness numbness or dizziness, she has some old has history of migraine. She denies chest peak or dyspnea. She does not follow up with PCP On admission patient was tachycardic with heart rate 114 and blood pressure 171/74 and patient is afebrile. Patient has mild leukocytosis of 12.7, rest of the CBC, BMP, liver enzymes were unremarkable. Urine analysis showing WBC more than 182 and large leukocyte esterase. EKG shows sinus rhythm at [address]-T changes CT of the abdomen and pelvis with contrast showing moderate right hydrou reteronephrosis due to her calculus at the ureteropelvic brim, no evidence of left hydronephrosis but there is left nonobstructing 2 mm calculi. Cholelithiasis 10/10/2022 Patient still feels sick with slight improvement She is hemodynamically stable, still tachycardic, afebrile. Leukocytosis is worsened 21.9 thousand, creatinine went up from 0.9 up to 1.9., Check Bladder scan and asked for an nephrology consult Patient remains on ceftriaxone for UTI with evidence of blood culture positive for E. coli, pending final results, currently covered with the same antibiotic Urology of planning for cystoscopy and right ureteral stent placement and later stage cystoscopy with stone and stent removal. Patient on ceftriaxone 2 g daily. 10/11/2022 patient status post stent placement today postoperative day number: She still feels somewhat tired but improving She was on ceftriaxone and normal saline with 30 Creatinine improving down to 1.3 and able to see coming down slowly 19.5. Hemoglobin went down today 11.9 down to 9.9 most likely secondary to sepsis and hemoglobin delusion as well as platelet count 101. Urine culture showing sensitive E. coli blood culture is positive for gram- negative bacilli and pending final results Consulted infectious disease team today for further antibiotic recommendations Possible discharge in 24-48 hours 10/12/2022 Patients with pyelonephritis and bacteremia with culture growing E. coli in both urine and blood or blood sensitivity still pending Also patient still has significant leukocytosis 18.2. Patient still needs IV antibiotics with close monitoring. ID team were consulted Other labs are reviewed available stable, hemoglobin 9.8 compared to 9.8 yesterday, it is stable, it was 11.9 and 13 on admission, hemoglobin drops more than we may consider further workup as inpatient. Platelet count is stable at 114. Blood pressure and heart rate are good therefore I think we can lower her IV fluids to 75 mL/h Patient tolerated to follow-up with Dr. Martino upon discharge in one week for removal of stone and stent from her right ureteral. 10/13/2022 Patient seen and evaluated bedside, continue patient on IV antibiotic, follow up on CBC, patient denies fever or abdominal pain does complain of generalized fatigue 10/14/2022 patient seen and evaluated bedside. CBC reviewed, trending down within normal limits. Patient noted to have low magnesium which will be replaced. Does complain of abdominal discomfort however has improved denies fever or chills 10/15/2022 patient seen and evaluated bedside, at this point white cell count has normalized abdominal pain has improved patient will need outpatient follow- up with urology. Prescription for ciprofloxacin provided patient does have ALLERGY to amoxicillin. Concern for cross-reactivity with Ceftin as well although did tolerate Rocephin while inpatient PHYSICAL EXAMINATION: GENERAL: The patient is alert and oriented x3, not in any acute distress. Well developed, well nourished. HEENT: Pupils are round and equally reacting to light. EOMI. No scleral icterus. No conjunctival pallor. Normocephalic, atraumatic. No pharyngeal erythema. No thyromegaly. CARDIOVASCULAR: S1 and S2 present. No murmurs, rubs, or gallops. PULMONARY: Chest is clear to auscultation, no wheezing or crackles. ABDOMEN: Soft, nontender, nondistended, normoactive bowel sounds. No palpable organomegaly. MUSCULOSKELETAL: No joint swelling or deformity. EXTREMITIES: No cyanosis, clubbing, or pedal edema. NEUROLOGICAL: Gross neurological examination did not reveal any focal deficits. SKIN: No rashes. Assessment: * Complicated urinary tract infection Bilateral kidney stone, 6 mm on the right side with 2 mm on the left side with moderate right hydronephrosis * Right renal colic secondary to ureteral stone * Acute pyelonephritis * E. coli bacteremia * Hypertension, uncontrolled on admission * Hyperlipidemia * History of osteoarthritis * History of GERD * History of rheumatoid arthritis * History of incisional hernia * Restless leg syndrome * History of migraine * History of urinary incontinence Plan: * In regards to urinary tract infection continue patient on IV Rocephin day 5, blood cultures and urine culture positive for E. coli. Infectious disease following, transition to oral ciprofloxacin 10 day prescription provided * In regards to sepsis, resuscitated with IV fluid, transition to oral antibiotic on discharge * In regards to acute kidney injury, patient seen by nephrology renal function back to baseline * In regards to hypertension continue patient on atenolol, hydralazine * Workup with PCP post discharge Patient Condition at Discharge: Fair Plan - Discharge Summary New Discharge Prescriptions: New Ciprofloxacin HCl [Cipro] 750 mg PO Q12H 10 Days #20 tab hydrALAZINE HCL [Apresoline] 25 mg PO TID 30 Days #90 tab atenoloL [Tenormin] 50 mg PO DAILY 30 Days #30 tab Continue Spironolactone [Aldactone] 25 mg PO DAILY rOPINIRole HCL [Requip] 0.5 mg PO HS buPROPion XL [Wellbutrin XL] 300 mg PO DAILY Pantoprazole Sodium 20 mg PO DAILY Solifenacin Succinate [Vesicare] 5 mg PO DAILY Atorvastatin [Lipitor] 40 mg PO HS SUMAtriptan succinate [Imitrex] 25 mg PO DAILY PRN PRN Reason: Migraine Headache Ferrous Sulfate [Iron (65 MG Elemental)] 325 mg PO DAILY Sertraline [Zoloft] 150 mg PO DAILY Discontinued atenoloL 25 mg PO DAILY Discharge Medication List Atorvastatin [Lipitor] 40 mg PO HS 07/21/20 [History] SUMAtriptan succinate [Imitrex] 25 mg PO DAILY PRN 07/21/20 [History] Spironolactone [Aldactone] 25 mg PO DAILY 07/21/20 [History] rOPINIRole HCL [Requip] 0.5 mg PO HS 07/21/20 [History] Ferrous Sulfate [Iron (65 MG Elemental)] 325 mg PO DAILY 10/09/22 [History] Pantoprazole Sodium 20 mg PO DAILY 10/09/22 [History] Sertraline [Zoloft] 150 mg PO DAILY 10/09/22 [History] Solifenacin Succinate [Vesicare] 5 mg PO DAILY 10/09/22 [History] buPROPion XL [Wellbutrin XL] 300 mg PO DAILY 10/09/22 [History] Ciprofloxacin HCl [Cipro] 750 mg PO Q12H 10 Days #20 tab 10/15/22 [Rx] atenoloL [Tenormin] 50 mg PO DAILY 30 Days #30 tab 10/15/22 [Rx] hydrALAZINE HCL [Apresoline] 25 mg PO TID 30 Days #90 tab 10/15/22 [Rx] Follow up Appointment(s)/Referral(s): Rudolph Quinteros MD [Primary Care Provider] - 1-2 days [facility] [NON-STAFF] - 1 Week Anthony Sims MD [STAFF PHYSICIAN] - 1 Week Jhonny Marie MD [STAFF PHYSICIAN] - 1 Week (for stone and stent removal) Discharge Disposition: HOME SELF-CARE
--- NOTE | 2022-10-15 13:12 | P.PN ---
Subjective Patient is seen in follow-up for acute kidney injury. Renal function at baseline. Receiving IV fluids. Oral intake fair. Hemodynamically stable. No chest pain or shortness of breath. Admits to good urine output. Vital signs are stable. General: No acute distress. HEENT: Head exam is unremarkable. LUNGS: No audible rhonchi or wheezes. HEART: Rate and Rhythm are regular. ABDOMEN: Nontender. EXTREMITITES: No edema. Objective - Vital Signs Vital signs: Vital Signs Temp 97.9 F 10/15/22 08:02 Pulse 78 10/15/22 08:02 Resp 16 10/15/22 08:02 BP 165/80 10/15/22 08:02 Pulse Ox 92 L 10/15/22 09:33 FiO2 Intake & Output 10/14/22 10/15/22 10/15/22 18:59 06:59 18:59 Other: Voiding Method Toilet Toilet Toilet # Voids 5 4 - Labs CBC & Chem 7: 10/15/22 06:47 10/15/22 06:47 Labs: Abnormal Lab Results - Last 24 Hours (Table) 10/11/22 10/15/22 10/15/22 Range/Units 06:37 06:47 06:47 Hgb 10.3 L (12.0-15.0) d/dL Hct 33.6 L (37.2-46.3) % MCV 79.6 L (80.0-97.0) FL MCH 24.4 L (27.0-32.0) pg MCHC 30.7 L (32.0-37.0) d/dL RDW 19.7 H (11.5-14.5) % Neutrophils # (Manual) 17.95 H (1.80-7.70) X 10*3/uL Potassium 3.4 L (3.5-5.5) mmol/L BUN 5.8 L (9.0-27.0) mg/dL BUN/Creatinine Ratio 8.29 L (12.00-20.00) Ratio Calcium 7.8 L (8.7-10.3) mg/dL Assessment and Plan Plan: Assessment: 1. Acute kidney injury secondary to ATN secondary to severe sepsis. Resolved. 2. Right-sided hydronephrosis status post cystoscopy with ureteral stent placement. 3. Severe sepsis secondary to E. coli UTI and bacteremia on antibiotics. 4. Metabolic acidosis secondary to acute kidney injury and IV fluids. On oral bicarbonate. Improved. 5. Benign hypertension. Stable. 6. Hypokalemia from poor intake, post obstructive diuresis. Plan: Maintain gentle IV hydration. Potassium replaced. Avoid nephrotoxins. Continue to monitor renal function and urine output. Increase dose of hydralazine.
[2022-10-15] MEDS ORDERED: hydrALAZINE HCL 50 MG TAB PO SCH (16:00)
[2022-10-15 16:23] VITALS: BP 120/72; PULSE 79; TEMP 98.2
--- NOTE | 2022-10-22 13:03 | P.PN ---
Subjective Progress Note Date: 10/15/22 Principal diagnosis: E.coli UTI and Bacteremia Patient is a 67-year-old female presenting to the hospital 4 days ago for evaluation of abdominal pain patient pain has been to the right lower quadrant ,CT abdominal pelvis moderate right hydronephrosis,patient is status p ost cystoscopy with placement of double-J catheter placement patient blood cultures came back positive with gram-negative bacilli. On today's evaluation that is 10/15/2022, patient continues to be afebrile, the patient is breathing comfortably on room air , the patient denies any chest pain shortness of breath or cough right-sided pain has improved some nausea but no vomiting no abdominal pain or diarrhea. The patient white count is normal at 6.23 creatinine 0.70 blood and urine culture with an E. coli that is a sensitive pathogen Objective - Vital Signs Vital signs: Vital Signs Temp 97.9 F 10/15/22 08:02 Pulse 78 10/15/22 08:02 Resp 16 10/15/22 08:02 BP 165/80 10/15/22 08:02 Pulse Ox 92 L 10/15/22 09:33 FiO2 Intake & Output 10/14/22 10/15/22 10/15/22 18:59 06:59 18:59 Other: Voiding Method Toilet Toilet Toilet # Voids 5 4 - Exam GENERAL DESCRIPTION: Elderly female up in the room in no distress RESPIRATORY SYSTEM: Unlabored breathing , decreased breath sounds at bases HEART: S1 S2 regular rate and rhythm ,no loud murmurs ABDOMEN: Soft , no tenderness EXTREMITIES: No edema feet - Labs CBC & Chem 7: 10/15/22 06:47 10/15/22 06:47 Labs: Abnormal Lab Results - Last 24 Hours (Table) 10/15/22 10/15/22 Range/Units 06:47 06:47 Hgb 10.3 L (12.0-15.0) d/dL Hct 33.6 L (37.2-46.3) % MCV 79.6 L (80.0-97.0) FL MCH 24.4 L (27.0-32.0) pg MCHC 30.7 L (32.0-37.0) d/dL RDW 19.7 H (11.5-14.5) % Potassium 3.4 L (3.5-5.5) mmol/L BUN 5.8 L (9.0-27.0) mg/dL BUN/Creatinine Ratio 8.29 L (12.00-20.00) Ratio Calcium 7.8 L (8.7-10.3) mg/dL Assessment and Plan (1) E coli bacteremia Status: Acute Code(s): R78.81 - BACTEREMIA; B96.20 - UNSP ESCHERICHIA COLI THE CAUSE OF DISEASES CLASSD ELSR SNOMED Code(s): 066495910669 (2) UTI (urinary tract infection) Status: Acute Code(s): N39.0 - URINARY TRACT INFECTION, SITE NOT SPECIFIED SNOMED Code(s): 41522647 Plan: 1patient with gram-negative bacteremia source is secondary to complicated UTI in this patient with evidence of right sided hydroureteronephrosis secondary to obstructing calculus in this patient who is s/p renal cystoscopy and double-J catheter placement. 2patient bloody urine culture has been finalized with E. coli that is sensitive pathogen and the patient white count has normalized, patient is on Rocephin, patient will be able to finish therapy with oral Ceftin x10 days on discharge and a close outpatient follow-up Dictation was produced using [employer] dictation software. please excuse any gra mmatical, word or spelling errors. Time with Patient: Less than 30
[2022-10-25 11:23] LABS: Basophils # (A) 0.04 X 10*3/uL (0.00-0.10); Eosinophils # (A) 0.16 X 10*3/uL (0.04-0.35); Lymphocytes # (A) 0.64 X 10*3/uL (0.90-5.00); Neutrophils # (A) 16.62 X 10*3/uL (1.80-7.70)
== END 2022-10-15 17:06 | disposition home or self-care (01) | DRG 853 ==
LOC: EC 09:45 → 1SOBS 14:17 → OBSVTOIN 14:17 → INTOOBSV 10-10 08:14 → 6NMEDSUR 10-10 09:09 → UNDODISIN 10-15 17:06
PROVIDERS: ADMIT Internal Medicine; ATTEND Internal Medicine
PROC: 0T7B8DZ Dilation of Bladder with Intraluminal Device, Via Natural or Artificial Opening Endoscopic (ICD-10-PCS; principal; 2022-10-10 11:30)
DX: A41.51 Sepsis due to Escherichia coli [E. coli] (principal); N17.0 Acute kidney failure with tubular necrosis; E87.4 Mixed disorder of acid-base balance; N13.6 Pyonephrosis; E78.5 Hyperlipidemia, unspecified; E87.6 Hypokalemia; F32.A Depression, unspecified; F41.9 Anxiety disorder, unspecified; K21.9 Gastro-esophageal reflux disease without esophagitis; G25.81 Restless legs syndrome; I10 Essential (primary) hypertension; G43.909 Migraine, unspecified, not intractable, without status migrainosus; I95.9 Hypotension, unspecified; I25.10 Atherosclerotic heart disease of native coronary artery without angina pectoris; K80.20 Calculus of gallbladder without cholecystitis without obstruction; M19.90 Unspecified osteoarthritis, unspecified site; M06.9 Rheumatoid arthritis, unspecified; R65.20 Severe sepsis without septic shock; Z79.899 Other long term (current) drug therapy; Z28.311 Partially vaccinated for COVID-19; Z86.010 Personal history of colon polyps; Z87.442 Personal history of urinary calculi; Z88.0 Allergy status to penicillin; Z90.49 Acquired absence of other specified parts of digestive tract; Z95.5 Presence of coronary angioplasty implant and graft; Z88.5 Allergy status to narcotic agent; Z88.6 Allergy status to analgesic agent; Z91.041 Radiographic dye allergy status
CPT/HCPCS: 36415; 74177; 80048; 80053; 81001; 82150; 83605; 83690; 83735; 85025; 85027; 87040; 87077; 87086; 87186; 93005; 94760; 96361; 96374; 96375; 99285

== ENCOUNTER → 2022-12-03 | Outpatient (CLI) | payer MEDICARE ==
[2022-12-03 21:40] LABS: Basophils # (A) 0.04 X 10*3/uL (0.00-0.10); Basophils % (A) 0.5 %; Eosinophils # (A) 0.33 X 10*3/uL (0.04-0.35); Eosinophils % (A) 4.5 %; HCT 39.4 % (37.2-46.3); HGB 11.8 d/dL (12.0-15.0); Lymphocytes # (A) 1.11 X 10*3/uL (0.90-5.00); Lymphocytes % (A) 15.1 %; MCH 25.4 pg (27.0-32.0); MCHC 29.9 d/dL (32.0-37.0); MCV 84.9 FL (80.0-97.0); Mean Platelet Volume 10.1 FL (9.5-12.2); Monocytes # (A) 0.48 X 10*3/uL (0.20-1.00); Monocytes % (A) 6.5 %; NRBC Per 100 WBC 0 X 10*3/uL (0.00-0.01); Neutrophils # (A) 5.37 X 10*3/uL (1.80-7.70); Platelet Count 287 X 10*3/uL (140-440); RBC 4.64 X 10*6/uL (4.10-5.20); RDW 16.6 % (11.5-14.5); WBC 7.36 X 10*3/uL (4.50-10.00)
[2022-12-03 21:44] LABS: Appearance,Urine Clear (Clear); Bilirubin,Urine Negative (Negative); Blood,Urine Moderate (Negative); Color,Urine Yellow (Yellow); Ketones,Urine Negative (Negative); Nitrite,Urine Negative (Negative); Specific Gravity,Urine 1.008 (1.001-1.030); Urobilinogen,Urine 0.2 E.U./DL
[2022-12-03 22:36] LABS: Bacteria,Urine None Seen (None Seen)
[2022-12-04 01:43] LABS: BUN/Creat Ratio 10.89 Ratio (12.00-20.00); Blood Urea Nitrogen 9.8 mg/dL (9.0-27.0); Calcium 9.7 mg/dL (8.7-10.3); Carbon Dioxide 25.7 mmol/L (21.6-31.8); Chloride 106 mmol/L (96-109); Glucose 92 mg/dL (70-110); Sodium 142 mmol/L (135-145)
== END | disposition home or self-care (01) ==
LOC: LABPAT 14:24
PROVIDERS: ATTEND Urology
DX: Z01.812 Encounter for preprocedural laboratory examination (principal); N20.1 Calculus of ureter; R10.9 Unspecified abdominal pain
CPT/HCPCS: 80048; 81001; 85025; 87086

== ENCOUNTER → 2022-12-03 | Outpatient (CLI) | payer MEDICARE ==
--- NOTE | 2022-12-03 15:19 | XR ---
EXAMINATION TYPE: XR KUB DATE OF EXAM: 12/03/2022 COMPARISON: CT 10/10/2019 HISTORY: Right ureteral calculus TECHNIQUE: One view abdominal series FINDINGS: The osseous structures are intact. The bowel gas pattern is nonspecific. Left kidney: no suspicious calcifications. Right kidney: suspicious double-J ureteral stent. It does appear to be a calcification level of the m id right ureter overlying same measuring approximately 5.6 mm in diameter In the pelvis there is multiple vascular appearing calcifications. Bilateral hip arthropathy and dege nerative changes spine. A density overlying the right iliac bone appears to correspond with soft tiss ue indication a recent CT scan. IMPRESSION: 1. Double-J ureteral stent with mid right ureteral calculus measuring 5.4 mm in diameter. 2. No evidence of nephrolithiasis.
== END | disposition home or self-care (01) ==
LOC: RADXRMAIN 14:54
PROVIDERS: ATTEND Urology
DX: N20.1 Calculus of ureter (principal); Z96.0 Presence of urogenital implants
CPT/HCPCS: 74018

== ENCOUNTER 2022-12-12 10:15 | Day surgery (SDC) | payer MEDICARE ==
[2022-12-06 11:22] VITALS: BMI 29.5
--- NOTE | 2022-12-11 18:27 | P.GSHP ---
History of Present Illness H&P Date: 12/11/22 67 yo female who was in the hospital in the end of september with a right ureteral stone, uti w sepsis and pyonephrosis. She received antibiotics and a right double j catheter was placed. She now comes for right ureteroscopy with laser lithotripsy stone and stent removal. - Constitutional Constitutional: Denies chills, Denies fever - EENT Eyes: denies blurred vision, denies pain Ears, nose, mouth and throat: Denies headache, Denies sore throat - Cardiovascular Cardiovascular: Denies chest pain, Denies shortness of breath - Respiratory Respiratory: Denies cough, Denies 7 - Gastrointestinal Gastrointestinal: Denies abdominal pain, Denies diarrhea, Denies nausea, Denies vomiting - Genitourinary (Female) Genitourinary: Denies dysuria, Denies hematuria - Genitourinary (Male) Genitourinary: Denies dysuria, Denies hematuria - Musculoskeletal Musculoskeletal: Denies myalgias - Integumentary Integumentary: Denies pruritus, Denies rash - Neurological Neurological: Denies numbness, Denies weakness - Psychiatric Psychiatric: Denies anxiety, Denies depression - Endocrine Endocrine: Denies fatigue, Denies weight change Past Medical History Past Medical History: Coronary Artery Disease (CAD), Diabetes Mellitus, GERD/Reflux, Hyperlipidemia, Hypertension, Osteoarthritis (OA), Rheumatoid Arthritis (RA) Additional Past Medical History / Comment(s): colostomy, hx of fistula with abscess, sx at [facility], hx of colon polyps, hx of kidney stones, incisional hernia, restless leg, hx of urinary incontinence, hx migraines History of Any Multi-Drug Resistant Organisms: None Reported Past Surgical History: Appendectomy, Heart Catheterization With Stent, Hernia Repair Additional Past Surgical History / Comment(s): colostomy 08/2018, ostomy reversal in 08/14 @ [facility], 2 cardiac stents, lithotripsy. hernia surgery x 2, RT UTEREAL J TUBE, COLONOSCOPY, Past Anesthesia/Blood Transfusion Reactions: Previous Problems w/ Anesthesia Additional Past Anesthesia/Blood Transfusion Reaction / Comment(s): trouble waking up in past Date of Last Stent Placement:: 2008 Smoking Status: Never smoker - Past Family History Mother Family Medical History: No Reported History Medications and Allergies Home Medications Medication Instructions Recorded Confirmed Type Atorvastatin [Lipitor] 40 mg PO HS 07/21/20 12/06/22 History SUMAtriptan succinate [Imitrex] 25 mg PO DAILY PRN 07/21/20 12/06/22 History Spironolactone [Aldactone] 25 mg PO DAILY 07/21/20 12/06/22 History rOPINIRole HCL [Requip] 1 mg PO HS 07/21/20 12/06/22 History Pantoprazole Sodium 20 mg PO DAILY 10/09/22 12/06/22 History Sertraline [Zoloft] 150 mg PO DAILY 10/09/22 12/06/22 History Solifenacin Succinate [Vesicare] 5 mg PO DAILY 10/09/22 12/06/22 History buPROPion XL [Wellbutrin XL] 300 mg PO DAILY 10/09/22 12/06/22 History atenoloL [Tenormin] 50 mg PO DAILY 30 Days #30 tab 10/15/22 12/06/22 Rx Aspirin/Acetaminophen/Caffeine 1 each PO DIRECTED PRN 12/06/22 12/06/22 History [Excedrin Migraine Caplet] Doxylamine Succinate [Unisom] 50 mg PO HS 12/06/22 12/06/22 History Ibuprofen [Advil] 200 mg PO BID PRN 12/06/22 12/06/22 History Loratadine [Claritin] 10 mg PO DAILY 12/06/22 12/06/22 History Multivit/Folic Acid/Vit K1 1 each PO DAILY 12/06/22 12/06/22 History [One-A-Day Women's 50 Plus Tab] glipiZIDE XL [Glucotrol Xl] 5 mg PO DAILY 12/06/22 12/06/22 History metFORMIN HCL 500 mg PO DAILY 12/06/22 12/06/22 History Allergies Allergy/AdvReac Type Severity Reaction Status Date / Time amoxicillin Allergy Rash/Hives Verified 12/06/22 10:51 aspirin [From Percodan] Allergy Itching Verified 12/06/22 10:51 erythromycin base Allergy Rash/Hives Verified 12/06/22 10:51 hydromorphone [From Dilaudid] Allergy Rash/Hives Verified 12/06/22 10:51 Iodinated Contrast Media Allergy Rash/Hives Verified 12/06/22 10:51 oxycodone [From Percodan] Allergy Itching Verified 12/06/22 10:51 Surgical - Exam - General well developed, well nourished, no distress - Eyes normal ocular movement, no icteric - ENT no hearing loss, no congestion - Neck no masses, trachea midline - Respiratory normal respiratory effort, clear to auscultation - Abdomen Abdomen: soft, non tender, no guarding, no rigid, no rebound - Integumentary no rash, no abnormal pigmentation - Neurologic no disoriented, no combative - Psychiatric oriented to time, oriented to person, oriented to place, speech is normal, memory intact Results - Imaging CT scan - abdomen: report reviewed, image reviewed CT scan - pelvis: report reviewed, image reviewed Assessment and Plan Assessment: impression: right ureteral stone. Multiple medical comorbidities Plan: cysto with right ureteroscopy , laser lithotripsy, stone and stent removal.
[~2022-12-12 10:15] MED LIST: GENTAMICIN 100 MG in SODIUM CHLORIDE 0.9% 100 ML IVPB PRN; HYDROmorphone 0.5 MG/0.5 ML SYRINGE IVP PRN; LACTATED RINGERS 1,000 ML IV SCH; ONDANSETRON 4 MG/2 ML VIAL IVP ONE
--- NOTE | 2022-12-12 10:39 | XR ---
EXAMINATION TYPE: XR KUB DATE OF EXAM: 12/12/2022 COMPARISON: 12/13/2022 HISTORY: Presurgical TECHNIQUE: One view abdominal series FINDINGS: There is a right-sided ureteral stent. Calcifications pelvis appear vascular. There remains a calculu s along the mid to distal margin right ureteral stent. There is bilateral hip arthropathy with soft t issue calcifications. Degenerative changes spine. SI joints demonstrate mild arthropathy. IMPRESSION: 1. Stable right-sided ureteral stent with mid ureteral calculus measuring approximately [address]
[2022-12-12 11:25] VITALS: RESP 16
[2022-12-12] MEDS ORDERED: LIDOCAINE 1% (10MG/ML) FOR IV START INTRADERMA ONE (11:27)
[2022-12-12] MEDS ORDERED: DEXAMETHASONE SOD PHOSPHATE 4 MG/ML 1 ML VIAL IVP ONE (11:28)
[2022-12-12 11:41] LABS: Glucose,Whole Blood 96 mg/dL (70-110)
[2022-12-12] MEDS ORDERED: fentaNYL (PF) 50 MCG/ML 2 ML AMP ONE (11:57)
[2022-12-12] MEDS ORDERED: MIDAZOLAM 2 MG/2 ML VIAL ONE (11:57)
[2022-12-12] MEDS ORDERED: LIDOCAINE 1% INJ 10MG/ML (20 ML MDV) ONE (11:57)
[2022-12-12] MEDS ORDERED: PROPOFOL 10 MG/ML 20 ML VIAL IV ONE (11:57)
[2022-12-12] MEDS ORDERED: SODIUM CHLORIDE 0.9% 50 ML with GENTAMICIN 80 MG IV ONE ×2 (12:00)
[2022-12-12] MEDS ORDERED: AMPICILLIN IV ONE ×2 (12:00)
[2022-12-12] MEDS ORDERED: SODIUM CHLORIDE 0.9% IV ONE ×2 (12:00)
--- NOTE | 2022-12-12 12:48 | P.OP ---
Date of Procedure: 12/12/22 Preoperative Diagnosis: Right ureteral calculus with stent Postoperative Diagnosis: Same Procedure(s) Performed: Cystoscopy, removal double-J catheter right, right ureteroscopy with laser lithotripsy and stone basketing Anesthesia: ALISA Surgeon: Jhonny Marie Estimated Blood Loss (ml): 0 Pathology: other (Stone) Condition: stable Disposition: PACU Indications for Procedure: The patient is 67. In September she had an obstructing right ureteral stone, urinary tract infection with sepsis. She now comes for right ureteral stone and stent removal Description of Procedure: Patient brought to the operating suite. Given a general anesthetic. Prepped and draped sterilely. Cystoscopy Foroblique lens and 21-Cameroonian sheath identifies a normal bladder. The right double-J catheters identified and pulled to the urethral meatus. Through the stent and 035 wires passed up the right ureter. Along the wire I passed a semirigid rigid ureteroscope into the right ureter. The stone was seen in the mid ureter. With the 272 laser probe the stone was broken into tiny fragments basketed or flushed out of the ureter. There is not enough edema in the right ureter to relieve the stent. Stones are collected for pathology. The ureteroscope was removed. The bladder is drained and the patient is awake and returned recovery in good condition. She tolerated the procedure well be discharged home upon recovery.
[2022-12-12 13:04] LABS: Glucose,Whole Blood 93 mg/dL (70-110)
[2022-12-12 13:06] VITALS: TEMP 97.2
[2022-12-12] MEDS ORDERED: fentaNYL (PF) 50 MCG/ML 2 ML AMP IVP ONE (13:19)
[2022-12-12 16:54] VITALS: BP 137/85; PULSE 83
== END 2022-12-12 17:07 | disposition home or self-care (01) ==
LOC: OR 10:15
PROVIDERS: ATTEND Urology
DX: N20.1 Calculus of ureter (principal); I25.10 Atherosclerotic heart disease of native coronary artery without angina pectoris; E11.9 Type 2 diabetes mellitus without complications; E78.5 Hyperlipidemia, unspecified; I10 Essential (primary) hypertension; K21.9 Gastro-esophageal reflux disease without esophagitis; Z87.442 Personal history of urinary calculi; Z90.49 Acquired absence of other specified parts of digestive tract; Z98.890 Other specified postprocedural states; Z95.5 Presence of coronary angioplasty implant and graft; Z79.84 Long term (current) use of oral hypoglycemic drugs; Z88.6 Allergy status to analgesic agent; Z88.1 Allergy status to other antibiotic agents; Z88.5 Allergy status to narcotic agent; Z79.899 Other long term (current) drug therapy
CPT/HCPCS: 82365; 74018; 52353; C1769; J2250; J1580; J1100; J2405; J2001; J0290; J3010; J2704

== ENCOUNTER 2023-03-06 16:36 | Emergency (ER) | payer MEDICARE, OTHER ==
--- NOTE | 2023-03-06 18:33 | ED ---
Headache HPI - General Mode of arrival: ambulatory Limitations: no limitations <Ector Torres - Last Filed: 03/06/23 18:26> - History of Present Illness MD Complaint: headache Onset/Timin -: days(s) Onset Description: gradual Severity: moderate Quality: aching Consistency: constant Improves With: nothing Worsens With: none Context: occurred at rest Associated Symptoms: photophobia Treatments Prior to Arrival: prescription analgesic <Myke Maldonado - Last Filed: 03/18/23 05:40> - General Chief Complaint: Headache Stated Complaint: Migraine, poss hernia Time Seen by Provider: 03/06/23 18:26 - History of Present Illness Initial Comments: Quicknote: 67 y/o female presenting with CC of migraine ongoing for 1.5 weeks. She admits to generalized weakness, body aches, and fatigue. Also complains of a "lump" to her abdomen Electronically signed, Ector Torres PA-C (Ector Torres) This patient is 67-year-old woman who complains of persistent migraine despite using her home medications. She states that the headache is similar to usual migraines. It is not worst headache of life. She has not noted fevers, neck pain, neurologic symptoms. (Myke Maldonado) - Related Data Home Medications Medication Instructions Recorded Confirmed Atorvastatin [Lipitor] 40 mg PO HS 07/21/20 12/06/22 SUMAtriptan succinate [Imitrex] 25 mg PO DAILY PRN 07/21/20 12/12/22 Spironolactone [Aldactone] 25 mg PO DAILY 07/21/20 12/06/22 rOPINIRole HCL [Requip] 1 mg PO HS 07/21/20 12/06/22 Pantoprazole Sodium 20 mg PO DAILY 10/09/22 12/12/22 Sertraline [Zoloft] 150 mg PO DAILY 10/09/22 12/06/22 Solifenacin Succinate [Vesicare] 5 mg PO DAILY 10/09/22 12/06/22 buPROPion XL [Wellbutrin XL] 300 mg PO DAILY 10/09/22 12/12/22 Aspirin/Acetaminophen/Caffeine 1 each PO DIRECTED PRN 12/06/22 12/06/22 [Excedrin Migraine Caplet] Doxylamine Succinate [Unisom] 50 mg PO HS 12/06/22 12/06/22 Ibuprofen [Advil] 200 mg PO BID PRN 12/06/22 12/06/22 Loratadine [Claritin] 10 mg PO DAILY 12/06/22 12/12/22 Multivit/Folic Acid/Vit K1 1 each PO DAILY 12/06/22 12/06/22 [One-A-Day Women's 50 Plus Tab] glipiZIDE XL [Glucotrol Xl] 5 mg PO DAILY 12/06/22 12/06/22 metFORMIN HCL 500 mg PO DAILY 12/06/22 12/06/22 Previous Rx's Medication Instructions Recorded atenoloL [Tenormin] 50 mg PO DAILY 30 Days #30 tab 10/15/22 Nitrofurantoin Monohyd/M-Cryst 100 mg PO Q12HR #6 cap 03/07/23 [Macrobid] Allergies Allergy/AdvReac Type Severity Reaction Status Date / Time amoxicillin Allergy Rash/Hives Verified 03/06/23 17:19 aspirin [From Percodan] Allergy Itching Verified 03/06/23 17:19 erythromycin base Allergy Rash/Hives Verified 03/06/23 17:19 hydromorphone [From Dilaudid] Allergy Rash/Hives Verified 03/06/23 17:19 Iodinated Contrast Media Allergy Rash/Hives Verified 03/06/23 17:19 oxycodone [From Percodan] Allergy Itching Verified 03/06/23 17:19 Review of Systems ROS Other: All systems not noted in ROS Statement are negative. <Ector Torres - Last Filed: 03/06/23 18:26> ROS Other: All systems not noted in ROS Statement are negative. Constitutional: Denies: fever, chills, weakness Eyes: Reports: eye pain. Denies: vision change ENT: Denies: ear pain Respiratory: Denies: cough, dyspnea Cardiovascular: Denies: chest pain, palpitations Gastrointestinal: Reports: abdominal pain. Denies: nausea, vomiting, diarrhea, constipation, melena, hematochezia Genitourinary: Denies: dysuria, hematuria Musculoskeletal: Denies: back pain Skin: Denies: rash Neurological: Reports: as per HPI, headache. Denies: weakness <Myke Maldonado - Last Filed: 03/18/23 05:40> ROS Statement: Those systems with pertinent positive or pertinent negative responses have been documented in the HPI. Past Medical History Past Medical History: Coronary Artery Disease (CAD), GERD/Reflux, Hyperlipidemia, Hypertension, Osteoarthritis (OA), Rheumatoid Arthritis (RA) Additional Past Medical History / Comment(s): colostomy, hx of fistula with abscess, sx at [facility], hx of colon polyps, hx of kidney stones, incisional hernia, restless leg, states on metformin for weight loss, not diabetes, hx of urinary incontinence, hx migraines History of Any Multi-Drug Resistant Organisms: None Reported Past Surgical History: Heart Catheterization With Stent, Hernia Repair Additional Past Surgical History / Comment(s): colostomy 08/2018, ostomy reversal in 08/14 @ [facility], 2 cardiac stents, lithotripsy. hernia surgery x 2 Past Anesthesia/Blood Transfusion Reactions: Previous Problems w/ Anesthesia Additional Past Anesthesia/Blood Transfusion Reaction / Comment(s): trouble waking up in past Date of Last Stent Placement:: 2008 Past Psychological History: Anxiety, Depression Smoking Status: Never smoker Past Alcohol Use History: None Reported Past Drug Use History: None Reported - Past Family History Mother Family Medical History: No Reported History <Ector Torres - Last Filed: 03/06/23 18:26> General Exam Limitations: no limitations General appearance: alert, in no apparent distress Head exam: Present: atraumatic, normocephalic Eye exam: Present: normal appearance Neck exam: Present: normal inspection Respiratory exam: Absent: respiratory distress Neurological exam: Present: alert, oriented X3 Psychiatric exam: Present: normal affect, normal mood <Ector Torres - Last Filed: 03/06/23 18:26> General appearance: alert, in no apparent distress Head exam: Present: atraumatic, normocephalic Eye exam: Present: normal appearance, PERRL, EOMI. Absent: scleral icterus, conjunctival injection, nystagmus ENT exam: Present: normal oropharynx, mucous membranes moist Neck exam: Present: normal inspection, full ROM. Absent: tenderness, meningismus Respiratory exam: Present: normal lung sounds bilaterally. Absent: respiratory distress, wheezes, rales, rhonchi, stridor Cardiovascular Exam: Present: regular rate, normal rhythm, normal heart sounds. Absent: systolic murmur, diastolic murmur, rubs, gallop GI/Abdominal exam: Present: soft, tenderness, hernia (Patient has ventral hernia with some tenderness. There is no rebound or guarding). Absent: distended, guarding, rebound, rigid, mass Back exam: Present: normal inspection. Absent: CVA tenderness (R), CVA tenderness (L) Neurological exam: Present: alert, oriented X3, CN II-XII intact. Absent: motor sensory deficit Skin exam: Present: warm, dry, intact, normal color. Absent: rash <Myke Maldonado - Last Filed: 03/18/23 05:40> Course Vital Signs 03/06/23 03/06/23 03/07/23 17:16 22:16 00:43 Temperature 98.0 F 97.9 F Pulse Rate 72 69 72 Respiratory 18 16 18 Rate Blood Pressure 128/71 126/82 118/71 O2 Sat by Pulse 95 97 98 Oximetry 03/07/23 01:59 Temperature Pulse Rate 70 Respiratory 18 Rate Blood Pressure 118/70 O2 Sat by Pulse 100 Oximetry Medical Decision Making - Lab Data Result diagrams: 03/06/23 22:01 03/06/23 22:01 - EKG Data -: EKG Interpreted by Me EKG shows normal: sinus rhythm, axis (left axis deviation), intervals (QRS duration 137 ms, prolonged consistent with bundle-branch block. PA 173, QTC 422 ms, both normal), QRS complexes (right bundle-branch block) Rate: normal (82 bpm) <Myke Maldonado - Last Filed: 03/18/23 05:40> - Medical Decision Making This patient is 67-year-old woman complaining of persistent headache, otherwise consistent with her usual headaches. When I saw the patient she also had complaint that she felt her ventral hernia may have gotten bigger and was causing pain as well. There is some tenderness, therefore computed tomography scan is obtained. I interpreted the CT as showing ventral hernia without incarceration of bowel. No obstruction or other acute surgical condition Was pt. sent in by a medical professional or institution ([facility], [facility], urgent care, hospital, or group home...) When possible be specific @ -[No] Did you speak to anyone other than the patient for history (EMS, parent, family, police, friend...)? What history was obtained from this source @ -[No] Did you review nursing and triage notes (agree or disagree)? Why? @ -[I reviewed and agree with nursing and triage notes] Were old charts reviewed (outside hosp., previous admission, EMS record, old EKG, old radiological studies, urgent care reports/EKG's, group home records)? Report findings @ -[No old charts were reviewed] Differential Diagnosis (chest pain, altered mental status, abdominal pain women, abdominal pain men, vaginal bleeding, weakness, fever, dyspnea, syncope, headache, dizziness, GI bleed, back pain, seizure, CVA, palpatations, mental health, musculoskeletal)? @ -[Differential Headache: Migraine, tension, cluster, carbon monoxide, central venous thrombosis, pension karma temporal arteritis, acute closure glaucoma, intercranial hemorrhage, mastoiditis, sinusitis, head injury, this is not meant to be an all-inclusive list. Differential Abdominal Pain Women: Appendicitis, Cholecystitis, diverticulosis, ischemic bowel, pancreatitis, hepatitis, UTI, gastroenteritis, AAA, incarcerated hernia, bowel obstruction, constipation, inflammatory bowel, hepatitis, peptic ulcer disease, splenic infarction, perforated viscus, vulvitis, ovarian torsion, PID, kidney stone, placenta abruption, this is not meant to be an all-inclusive list EKG interpreted by me (3pts min.). @ -[As above] X-rays interpreted by me (1pt min.). @ -[None done] CT interpreted by me (1pt min.). @ -[I interpreted as above U/S interpreted by me (1pt. min.). @ -[None done] What testing was considered but not performed or refused? (CT, X-rays, U/S, labs)? Why? @ -[None] What meds were considered but not given or refused? Why? @ -[None] Did you discuss the management of the patient with other professionals (professionals i.e. , PA, [facility] [employer], lab, RT, psych nurse, social worker aide, call center agent, teacher, medical laboratory technical officer, comp field case manager)? Give summary @ -[No] Was smoking cessation discussed for >3mins.? @ -[No] Was critical care preformed (if so, how long)? @ -[No] Were there social determinants of health that impacted care today? How? (Homelessness, low income, unemployed, alcoholism, drug addiction, transportation, low edu. Level, literacy, decrease access to med. care, residential, rehab)? @ -[No] Was there de-escalation of care discussed even if they declined (Discuss DNR or withdrawal of care, Hospice)? DNR status @ -[No] What co-morbidities impacted this encounter? (DM, HTN, Smoking, COPD, CAD, Cancer, CVA, ARF, Chemo, Hep., AIDS, mental health diagnosis, sleep apnea, morbid obesity)? @ -[None] Was patient admitted / discharged? Hospital course, mention meds given and route, prescriptions, significant lab abnormalities, going to OR and other pertinent info. @ -[The patient did start to have some relief from headache, we discussed appropriate further care and follow-up as well as return parameters. Also discussed following with the surgeon related to the ventral hernia. Undiagnosed new problem with uncertain prognosis? @ -[No] Drug Therapy requiring intensive monitoring for toxicity (Heparin, Nitro, Insulin, Cardizem)? @ -[No] Were any procedures done? @ -[No] Diagnosis/symptom? @ -[Acute exacerbation of chronic migraine headaches Chronic ventral hernia Acute, or Chronic, or Acute on Chronic? @ -[default] Uncomplicated (without systemic symptoms) or Complicated (systemic symptoms)? @ -[Uncomplicated Side effects of treatment? @ -[No] Exacerbation, Progression, or Severe Exacerbation? @ -[No] Poses a threat to life or bodily function? How? (Chest pain, [place], [place], pneumonia, PE, COPD, DKA, ARF, appy, cholecystitis, CVA, Diverticulitis, Homicidal, Suicidal, threat to staff... and all critical care pts) @ -[No] (Myke Maldonado) - Lab Data Lab Results 03/06/23 03/06/23 03/06/23 Range/Units 22:01 22:01 22:01 WBC 9.6 (3.8-10.6) k/uL RBC 4.74 (3.80-5.40) m/uL Hgb 13.3 (11.4-16.0) gm/dL Hct 40.0 (34.0-46.0) % MCV 84.3 (80.0-100.0) fL MCH 28.0 (25.0-35.0) pg MCHC 33.3 (31.0-37.0) g/dL RDW 15.8 H (11.5-15.5) % Plt Count 219 (150-450) k/uL MPV 8.2 Neutrophils % 69 % Lymphocytes % 19 % Monocytes % 7 % Eosinophils % 3 % Basophils % 1 % Neutrophils # 6.6 (1.3-7.7) k/uL Lymphocytes # 1.8 (1.0-4.8) k/uL Monocytes # 0.7 (0-1.0) k/uL Eosinophils # 0.3 (0-0.7) k/uL Basophils # 0.1 (0-0.2) k/uL Sodium 140 (137-145) mmol/L Potassium 4.3 (3.5-5.1) mmol/L Chloride 108 H (98-107) mmol/L Carbon Dioxide 18 L (22-30) mmol/L Anion Gap 14 mmol/L BUN 18 H (7-17) mg/dL Creatinine 0.74 (0.52-1.04) mg/dL Est GFR (CKD-EPI)AfAm >90 (>60 ml/min/1.73 sqM) Est GFR (CKD-EPI)NonAf 84 (>60 ml/min/1.73 sqM) Glucose 70 L (74-99) mg/dL Plasma Lactic Acid Terry 1.0 (0.7-2.0) mmol/L Calcium 9.2 (8.4-10.2) mg/dL Total Bilirubin 0.5 (0.2-1.3) mg/dL AST 49 H (14-36) U/L ALT 42 H (4-34) U/L Alkaline Phosphatase 91 (38-126) U/L Total Protein 6.7 (6.3-8.2) g/dL Albumin 4.2 (3.5-5.0) g/dL Urine Color Urine Appearance (Clear) Urine pH (5.0-8.0) Ur Specific Deville (1.001-1.035) Urine Protein (Negative) Urine Glucose (UA) (Negative) Urine Ketones (Negative) Urine Blood (Negative) Urine Nitrite (Negative) Urine Bilirubin (Negative) Urine Urobilinogen (<2.0) mg/dL Ur Leukocyte Esterase (Negative) Urine RBC (0-5) /hpf Urine WBC (0-5) /hpf Ur Squamous Epith Cells (0-4) /hpf Hyaline Casts (0-2) /lpf Urine Mucus (None) /hpf 03/06/23 Range/Units 22:45 WBC (3.8-10.6) k/uL RBC (3.80-5.40) m/uL Hgb (11.4-16.0) gm/dL Hct (34.0-46.0) % MCV (80.0-100.0) fL MCH (25.0-35.0) pg MCHC (31.0-37.0) g/dL RDW (11.5-15.5) % Plt Count (150-450) k/uL MPV Neutrophils % % Lymphocytes % % Monocytes % % Eosinophils % % Basophils % % Neutrophils # (1.3-7.7) k/uL Lymphocytes # (1.0-4.8) k/uL Monocytes # (0-1.0) k/uL Eosinophils # (0-0.7) k/uL Basophils # (0-0.2) k/uL Sodium (137-145) mmol/L Potassium (3.5-5.1) mmol/L Chloride (98-107) mmol/L Carbon Dioxide (22-30) mmol/L Anion Gap mmol/L BUN (7-17) mg/dL Creatinine (0.52-1.04) mg/dL Est GFR (CKD-EPI)AfAm (>60 ml/min/1.73 sqM) Est GFR (CKD-EPI)NonAf (>60 ml/min/1.73 sqM) Glucose (74-99) mg/dL Plasma Lactic Acid Terry (0.7-2.0) mmol/L Calcium (8.4-10.2) mg/dL Total Bilirubin (0.2-1.3) mg/dL AST (14-36) U/L ALT (4-34) U/L Alkaline Phosphatase (38-126) U/L Total Protein (6.3-8.2) g/dL Albumin (3.5-5.0) g/dL Urine Color Yellow Urine Appearance Clear (Clear) Urine pH 5.5 (5.0-8.0) Ur Specific Deville 1.022 (1.001-1.035) Urine Protein Negative (Negative) Urine Glucose (UA) Negative (Negative) Urine Ketones Negative (Negative) Urine Blood Negative (Negative) Urine Nitrite Negative (Negative) Urine Bilirubin Negative (Negative) Urine Urobilinogen <2.0 (<2.0) mg/dL Ur Leukocyte Esterase Large H (Negative) Urine RBC 3 (0-5) /hpf Urine WBC 66 H (0-5) /hpf Ur Squamous Epith Cells 1 (0-4) /hpf Hyaline Casts 3 H (0-2) /lpf Urine Mucus Few H (None) /hpf Disposition <Ector Torres - Last Filed: 03/06/23 18:26> Is patient prescribed a controlled substance at d/c from ED?: No <Myke Maldonado - Last Filed: 03/18/23 05:40> Clinical Impression: UTI (urinary tract infection), Ventral hernia Disposition: HOME SELF-CARE Condition: Good Instructions (If sedation given, give patient instructions): Urinary Tract Infection in Women (ED), Ventral Hernia (ED) Prescriptions: Nitrofurantoin Monohyd/M-Cryst [Macrobid] 100 mg PO Q12HR #6 cap Referrals: Rudolph Quinteros MD [Primary Care Provider] - 1-2 days
[2023-03-06] MEDS ORDERED: diphenhydrAMINE 50 MG/ML 1 ML VIAL IVP STA (21:58)
[2023-03-06] MEDS ORDERED: METOCLOPRAMIDE 5 MG/ML 2 ML VIAL IVP STA (21:58)
[2023-03-06 22:14] LABS: Basophils # (A) 0.1 k/uL (0-0.2); Basophils % (A) 1 %; Eosinophils # (A) 0.3 k/uL (0-0.7); Eosinophils % (A) 3 %; HGB 13.3 gm/dL (11.4-16.0); Lymphocytes # (A) 1.8 k/uL (1.0-4.8); Lymphocytes % (A) 19 %; MCHC 33.3 g/dL (31.0-37.0); MCV 84.3 fL (80.0-100.0); Mean Platelet Volume 8.2; Monocytes # (A) 0.7 k/uL (0-1.0); Monocytes % (A) 7 %; Neutrophils # (A) 6.6 k/uL (1.3-7.7); Neutrophils % (A) 69 %; Platelet Count 219 k/uL (150-450); RBC 4.74 m/uL (3.80-5.40); RDW 15.8 % (11.5-15.5); WBC 9.6 k/uL (3.8-10.6)
[2023-03-06 22:41] VITALS: TEMP 97.9
--- NOTE | 2023-03-06 22:46 | CT ---
EXAM: CT Abdomen and Pelvis Without Intravenous Contrast CLINICAL HISTORY: ITS.REASON CT Reason: hernia TECHNIQUE: Axial computed tomography images of the abdomen and pelvis without intravenous contrast. CTDI is 13.2 mGy and DLP is 695.5 mGy-cm. This CT exam was performed using one or more of the following dose reduction techniques: automated exposure control, adjustment of the mA and/or kV according to patient size, and/or use of iterative reconstruction technique. COMPARISON: 10/09/2022 FINDINGS: ABDOMEN: Liver: Unremarkable. Gallbladder and bile ducts: Cholelithiasis without cholecystitis. Pancreas: Unremarkable. Spleen: Unremarkable. Adrenals: Unremarkable. Kidneys and ureters: Multiple punctate nonobstructing stones in the kidneys bilaterally. No ureteral stone or obstructive uropathy. Stomach and bowel: Unremarkable. PELVIS: Appendix: No findings to suggest acute appendicitis. Bladder: Unremarkable. Reproductive: Unremarkable as visualized. ABDOMEN and PELVIS: Intraperitoneal space: Unremarkable. No free air. No significant fluid collection. Bones/joints: Degenerative changes in the lumbar spine. Chronic compression deformity at L1. Soft tissues: Areas of fat necrosis along the ventral midline at the site of previous hernias. Status post hernia surgery. No significant recurrent ventral hernia identified. Vasculature: Unremarkable. Lymph nodes: Unremarkable. IMPRESSION: 1. Areas of fat necrosis along the ventral midline are unchanged. No midline hernia. 2. Cholelithiasis without cholecystitis.
[2023-03-06 22:47] LABS: ALT 42 U/L (4-34); African American GFR (CKD) >90 (>60 ml/min/1.73 sqM); Albumin 4.2 g/dL (3.5-5.0); Anion Gap 14 mmol/L; Blood Urea Nitrogen 18 mg/dL (7-17); Calcium 9.2 mg/dL (8.4-10.2); Carbon Dioxide 18 mmol/L (22-30); Chloride 108 mmol/L (98-107); Glucose 70 mg/dL (74-99); Non-African American GFR(CKD) 84 (>60 ml/min/1.73 sqM); Sodium 140 mmol/L (137-145); Total Bilirubin 0.5 mg/dL (0.2-1.3); Total Protein 6.7 g/dL (6.3-8.2)
[2023-03-06 22:52] LABS: AST 49 U/L (14-36); Alkaline Phosphatase 91 U/L (38-126); Potassium 4.3 mmol/L (3.5-5.1)
[2023-03-06 23:00] LABS: Appearance,Urine Clear (Clear); Bilirubin,Urine Negative (Negative); Blood,Urine Negative (Negative); Color,Urine Yellow; Glucose,Urine (UA) Negative (Negative); Hyaline Casts,Urine 3 /lpf (0-2); Ketones,Urine Negative (Negative); Leukocyte Esterase,Urine Large (Negative); Mucus,Urine Few /hpf; Nitrite,Urine Negative (Negative); PH, Urine 5.5 (5.0-8.0); Protein,Urine Negative (Negative); RBC,Urine 3 /hpf (0-5); Specific Gravity,Urine 1.022 (1.001-1.035); Squamous Epithelial Cell,Urine 1 /hpf (0-4); Urobilinogen,Urine <2.0 mg/dL (<2.0); WBC,Urine 66 /hpf (0-5)
[2023-03-07] MEDS ORDERED: NITROFURANTOIN MONOHYD/M-CRYST 100 MG CAP PO STA (00:24)
[2023-03-07 01:11] VITALS: RESP 18
[2023-03-07 02:23] VITALS: BP 118/70; PULSE 70
== END 2023-03-07 02:18 | disposition home or self-care (01) ==
LOC: EC 16:36
DX: N39.0 Urinary tract infection, site not specified (principal); K43.9 Ventral hernia without obstruction or gangrene; K80.20 Calculus of gallbladder without cholecystitis without obstruction; I25.10 Atherosclerotic heart disease of native coronary artery without angina pectoris; K21.9 Gastro-esophageal reflux disease without esophagitis; E78.5 Hyperlipidemia, unspecified; I10 Essential (primary) hypertension; M19.90 Unspecified osteoarthritis, unspecified site; F41.9 Anxiety disorder, unspecified; F32.A Depression, unspecified; Z79.1 Long term (current) use of non-steroidal anti-inflammatories (NSAID); Z79.899 Other long term (current) drug therapy; Z79.82 Long term (current) use of aspirin; Z88.0 Allergy status to penicillin; Z88.6 Allergy status to analgesic agent; Z91.041 Radiographic dye allergy status; Z88.8 Allergy status to other drugs, medicaments and biological substances; Z88.5 Allergy status to narcotic agent; Z88.1 Allergy status to other antibiotic agents
CPT/HCPCS: 99284 ×2; 96374 ×2; 96375 ×2; 36415; 80053; 83605; 85025; 81001; 74176; J1200; J2765

== ENCOUNTER 2023-07-15 09:56 | Emergency (ER) | payer MEDICARE ==
--- NOTE | 2023-07-15 10:52 | CT ---
EXAMINATION TYPE: CT brain cspine wo con CT DLP: 1516.6 mGycm, Automated exposure control for dose reduction was used. DATE OF EXAM: 07/15/2023 10:32 AM COMPARISON: None. CLINICAL INDICATION:Female, 67 years old with history of trauma, pain; fall TECHNIQUE: Brain: Multiple axial CT images of the brain were obtained without IV contrast. Cspine: Axial CT images from the skull base to the inferior aspect of T2 we obtained without intraven ous contrast. Coronal and sagittal reformatted images were also reviewed. FINDINGS: Brain: Extra-axial spaces: No abnormal extra-axial fluid collections. Ventricular system: Within normal limits Cerebral parenchyma: No acute intraparenchymal hemorrhage or mass effect. The driscoll-white junction is well differentiated. Cerebellum: Unremarkable. Mass effect: No evidence of midline shift. Intracranial vasculature: Atherosclerotic calcifications of the intracranial vessels. Soft tissues: Normal. Calvarium/osseous structures: No depressed skull fracture. Paranasal sinuses and mastoid air cells: Clear. Visualized orbits: Orbital contents are intact. Cervical spine: Fracture: None. Osseous structures: Multilevel degenerative disc disease changes with endplate spurring and disc oste ophyte complex's. Vertebral alignment: Within normal limits. Spinal canal/Neural Foramina: Disc osteophyte complexes at C5-C6 and C6-C7 with at least mild spinal canal stenosis. No evidence for significant neural foraminal stenosis. Neck soft tissues: Prevertebral soft tissues are within normal limits. Other: The airway is patent. The lung apices are clear. IMPRESSION: 1. No acute intracranial process. 2. No evidence of cervical spine fracture. 3. Mild multilevel degenerative disc disease.
--- NOTE | 2023-07-15 10:53 | XR ---
EXAMINATION TYPE: XR Hip LT and AP Pelvis DATE OF EXAM: 07/15/2023 10:41 AM CLINICAL INDICATION:Female, 67 years old with history of fall, pain; COMPARISON: None. TECHNIQUE: XR Hip LT and AP Pelvis; hip was examined in the frontal and lateral projections and a AP pelvis. FINDINGS: No evidence for acute process, joint dislocation or significant soft tissue swelling. Osteo phyte formation of the superior acetabulum of the hip. There is mild joint space narrowing. IMPRESSION: 1. No evidence for acute process. 2. Mild hip osteoarthrosis.
[2023-07-15 11:18] VITALS: RESP 18
[2023-07-15] MEDS: ONDANSETRON 4 MG/2 ML VIAL IVP STA (11:38)
[2023-07-15] MEDS: MORPHINE SULFATE 4 MG/ML SYRINGE IVP STA (11:39)
--- NOTE | 2023-07-15 11:56 | ED ---
General Adult HPI - General Stated complaint: Fall Time Seen by Provider: 07/15/23 09:58 Source: patient, EMS, RN notes reviewed Mode of arrival: EMS Limitations: physical limitation - History of Present Illness Initial comments: 67-year-old female presents emergency department with chief complaint of fall. Patient was coming down steps missed her second step falling on the concrete steps she did strike her head, and a mild headache no blood thinners she does complain of left hip pain unable to bear weight. Denies any paresthesias no complaints of chest, back pain or any other associated complaints - Related Data Home Medications Medication Instructions Recorded Confirmed Atorvastatin [Lipitor] 40 mg PO HS 07/21/20 12/06/22 SUMAtriptan succinate [Imitrex] 25 mg PO DAILY PRN 07/21/20 12/12/22 Spironolactone [Aldactone] 25 mg PO DAILY 07/21/20 12/06/22 rOPINIRole HCL [Requip] 1 mg PO HS 07/21/20 12/06/22 Pantoprazole Sodium 20 mg PO DAILY 10/09/22 12/12/22 Sertraline [Zoloft] 150 mg PO DAILY 10/09/22 12/06/22 Solifenacin Succinate [Vesicare] 5 mg PO DAILY 10/09/22 12/06/22 buPROPion XL [Wellbutrin XL] 300 mg PO DAILY 10/09/22 12/12/22 Aspirin/Acetaminophen/Caffeine 1 each PO DIRECTED PRN 12/06/22 12/06/22 [Excedrin Migraine Caplet] Doxylamine Succinate [Unisom] 50 mg PO HS 12/06/22 12/06/22 Ibuprofen [Advil] 200 mg PO BID PRN 12/06/22 12/06/22 Loratadine [Claritin] 10 mg PO DAILY 12/06/22 12/12/22 Multivit/Folic Acid/Vit K1 1 each PO DAILY 12/06/22 12/06/22 [One-A-Day Women's 50 Plus Tab] glipiZIDE XL [Glucotrol Xl] 5 mg PO DAILY 12/06/22 12/06/22 metFORMIN HCL 500 mg PO DAILY 12/06/22 12/06/22 Previous Rx's Medication Instructions Recorded atenoloL [Tenormin] 50 mg PO DAILY 30 Days #30 tab 10/15/22 Nitrofurantoin Monohyd/M-Cryst 100 mg PO Q12HR #6 cap 03/07/23 [Macrobid] Allergies Allergy/AdvReac Type Severity Reaction Status Date / Time amoxicillin Allergy Rash/Hives Verified 03/06/23 17:19 aspirin [From Percodan] Allergy Itching Verified 03/06/23 17:19 erythromycin base Allergy Rash/Hives Verified 03/06/23 17:19 hydromorphone [From Dilaudid] Allergy Rash/Hives Verified 03/06/23 17:19 Iodinated Contrast Media Allergy Rash/Hives Verified 03/06/23 17:19 oxycodone [From Percodan] Allergy Itching Verified 03/06/23 17:19 Review of Systems ROS Statement: Those systems with pertinent positive or pertinent negative responses have been documented in the HPI. ROS Other: All systems not noted in ROS Statement are negative. Past Medical History Past Medical History: Coronary Artery Disease (CAD), GERD/Reflux, Hyperlipidemia, Hypertension, Osteoarthritis (OA), Rheumatoid Arthritis (RA) Additional Past Medical History / Comment(s): colostomy, hx of fistula with abscess, sx at [facility], hx of colon polyps, hx of kidney stones, incisional hernia, restless leg, states on metformin for weight loss, not diabetes, hx of urinary incontinence, hx migraines History of Any Multi-Drug Resistant Organisms: None Reported Past Surgical History: Heart Catheterization With Stent, Hernia Repair Additional Past Surgical History / Comment(s): colostomy 08/2018, ostomy reversal in 08/14 @ [facility], 2 cardiac stents, lithotripsy. hernia surgery x 2 Past Anesthesia/Blood Transfusion Reactions: Previous Problems w/ Anesthesia Additional Past Anesthesia/Blood Transfusion Reaction / Comment(s): trouble waking up in past Date of Last Stent Placement:: 2008 Past Psychological History: Anxiety, Depression Smoking Status: Never smoker Past Alcohol Use History: None Reported Past Drug Use History: None Reported - Past Family History Mother Family Medical History: No Reported History General Exam General appearance: alert, in no apparent distress Head exam: Present: atraumatic, normocephalic, normal inspection Neck exam: Present: normal inspection, full ROM (Patient c-collar). Absent: tenderness, meningismus, lymphadenopathy Respiratory exam: Present: normal lung sounds bilaterally. Absent: respiratory distress, wheezes, rales, rhonchi, stridor Cardiovascular Exam: Present: regular rate, normal rhythm, normal heart sounds. Absent: systolic murmur, diastolic murmur, rubs, gallop, clicks Extremities exam: Present: other ( no shortening or rotation noted neurovascular intact, there is mild tenderness to left hip) Neurological exam: Present: alert, oriented X3, reflexes normal. Absent: motor sensory deficit Skin exam: Present: warm, dry, intact, normal color. Absent: rash Medical Decision Making - Medical Decision Making Was pt. sent in by a medical professional or institution ([facility] Brown, [employer], urgent care, hospital, or snf...) When possible be specific @ -No Did you speak to anyone other than the patient for history (EMS, parent, family, police, friend...)? What history was obtained from this source @ -No Did you review nursing and triage notes (agree or disagree)? Why? @ -I reviewed and agree with nursing and triage notes Were old charts reviewed (outside hosp., previous admission, EMS record, old EKG, old radiological studies, urgent care reports/EKG's, snf records)? Report findings @ -No old charts were reviewed Differential Diagnosis (chest pain, altered mental status, abdominal pain women, abdominal pain men, vaginal bleeding, weakness, fever, dyspnea, syncope, headache, dizziness, GI bleed, back pain, seizure, CVA, palpatations, mental health, musculoskeletal)? @ -Fall, intracranial hemorrhage, concussion, closed head injury, hip fracture hip contusion EKG interpreted by me (3pts min.). @ -None X-rays interpreted by me (1pt min.). @ -[Left hip with AP pelvis no acute fracture or malalignment degenerative changes noted CT interpreted by me (1pt min.). @ -CT the brain, C-spine no acute intracranial hemorrhage or mass effect. No cervical fracture U/S interpreted by me (1pt. min.). @ -None done What testing was considered but not performed or refused? (CT, X-rays, U/S, labs)? Why? @ -None What meds were considered but not given or refused? Why? @ -None Did you discuss the management of the patient with other professionals (professionals i.e. Dr., PA, [employer], lab, RT, psych nurse, social work professor, prorate clerk, teacher, civilian jail officer, case specialist)? Give summary @ -No Was smoking cessation discussed for >3mins.? @ -No Was critical care preformed (if so, how long)? @ -No Were there social determinants of health that impacted care today? How? (Homelessness, low income, unemployed, alcoholism, drug addiction, transportation, low edu. Level, literacy, decrease access to med. care, longterm, rehab)? @ -No Was there de-escalation of care discussed even if they declined (Discuss DNR or withdrawal of care, Hospice)? DNR status @ -No What co-morbidities impacted this encounter? (DM, HTN, Smoking, COPD, CAD, Cancer, CVA, ARF, Chemo, Hep., AIDS, mental health diagnosis, sleep apnea, morbid obesity)? @ -None Was patient admitted / discharged? Hospital course, mention meds given and route, prescriptions, significant lab abnormalities, going to OR and other pertinent info. @ -Discharged patient was able to stand, weight-bear on the left hip CT and x- rays were negative patient is discharged in stable condition. Undiagnosed new problem with uncertain prognosis? @ -No Drug Therapy requiring intensive monitoring for toxicity (Heparin, Nitro, Insulin, Cardizem)? @ -No Were any procedures done? @ -No Diagnosis/symptom? @ -Fall hip contusion, closed head injury Acute, or Chronic, or Acute on Chronic? @ -Acute Uncomplicated (without systemic symptoms) or Complicated (systemic symptoms)? @ -Uncomplicated Side effects of treatment? @ -No Exacerbation, Progression, or Severe Exacerbation? @ -No Poses a threat to life or bodily function? How? (Chest pain, [place], [place], pneumonia, PE, COPD, DKA, ARF, appy, cholecystitis, CVA, Diverticulitis, Homicidal, Suicidal, threat to staff... and all critical care pts) @ -No Disposition Clinical Impression: Fall, Contusion of left hip, Closed head injury Disposition: HOME SELF-CARE Condition: Stable Instructions (If sedation given, give patient instructions): Hip Contusion (ED), Head Injury (ED) Additional Instructions: Please return to the Emergency Department if symptoms worsen or any other concerns. Is patient prescribed a controlled substance at d/c from ED?: No Referrals: Rudolph Quinteros MD [Primary Care Provider] - 1-2 days Time of Disposition: 12:00
[2023-07-15 12:23] VITALS: BP 125/80; PULSE 72; TEMP 97.6
== END 2023-07-15 12:22 | disposition home or self-care (01) ==
LOC: EC 09:56
DX: S70.02XA Contusion of left hip, initial encounter (principal); S09.90XA Unspecified injury of head, initial encounter; Z88.1 Allergy status to other antibiotic agents; Z88.5 Allergy status to narcotic agent; Z91.041 Radiographic dye allergy status; Z88.8 Allergy status to other drugs, medicaments and biological substances; W10.9XXA Fall (on) (from) unspecified stairs and steps, initial encounter
CPT/HCPCS: 73502; 72125; 70450; 99285; 96374; 96375; J2270; J2405

== ENCOUNTER 2023-10-13 21:22 | Emergency (ER) | payer MEDICARE ==
[~2023-10-13 21:22] MED LIST changes: -GENTAMICIN 100 MG in SODIUM CHLORIDE 0.9% 100 ML IVPB PRN; -HYDROmorphone 0.5 MG/0.5 ML SYRINGE IVP PRN; -LACTATED RINGERS 1,000 ML IV SCH; -ONDANSETRON 4 MG/2 ML VIAL IVP ONE; +SODIUM CHLORIDE 0.9% 1,000 ML BAG ONE
[2023-10-13] MEDS ORDERED: KETOROLAC 15 MG/ML 1 ML VIAL ONE (23:17)
[2023-10-13] MEDS ORDERED: diphenhydrAMINE 50 MG/ML 1 ML VIAL ONE (23:17)
[2023-10-13] MEDS ORDERED: METOCLOPRAMIDE 5 MG/ML 2 ML VIAL ONE (23:17)
== END 2023-10-14 02:26 | disposition home or self-care (01) ==
LOC: EC 21:22
DX: G43.909 Migraine, unspecified, not intractable, without status migrainosus
CPT/HCPCS: 96374; 96375; 99283